=== PATIENT | male | born 1945 | race Caucasian/White ===

== ENCOUNTER → 2019-08-18 | Outpatient (CLI) | payer MEDICARE ==
--- NOTE | 2019-08-18 17:02 | CT ---
EXAMINATION TYPE: CT chest w con DATE OF EXAM: 08/18/2019 COMPARISON: Chest x-ray 10/23/2014 HISTORY: cough CT DLP: 789 mGycm, Automated exposure control for dose reduction was used. CONTRAST: Performed injected with 100 mL of Isovue 300. TECHNIQUE: Axial images were obtained at 5 mm thick sections. Reconstructed images are reviewed on [employer] computer in the coronal plane. FINDINGS: Portion of the thyroid visualized is normal. There is a large pleural-based mass with irregular margins measuring 8.0 x 3.8 cm left lateral upper lung field. There are multiple prominent lymph nodes within the mediastinum. The largest lymph node i s a transverse dimension of 1.6 cm in the pretracheal space. Additional aortopulmonic window lymphade nopathy is present. Left hilar adenopathy is present measuring 1.2 cm. Small left pleural effusion is present. Emphysematous changes are present within the lung gomez. Per ipheral increased lung markings are present compatible with some pulmonary fibrosis. No enlarged mediastinal or hilar adenopathy is evident. The ascending aorta diameter at the level o f the main pulmonary artery is 3.9 cm. The main pulmonary artery diameter at the bifurcation is 2.8 cm. Coronary artery calcification is present. Limited CT sections are obtained through the upper abdomen. Abdomen is essentially unremarkable. IMPRESSIONS: 1. Large peripheral lung mass with multiple enlarged mediastinal lymph nodes suspicious for neoplasm. PET CT is recommended for additional workup. 2. Small left pleural effusion
== END ==
LOC: RADCTMAIN 14:10
PROVIDERS: ATTEND Internal Medicine
DX: J90 Pleural effusion, not elsewhere classified (principal); R91.8 Other nonspecific abnormal finding of lung field; R59.0 Localized enlarged lymph nodes
CPT/HCPCS: 82565; 84520; 71260; 36415; Q9967

== ENCOUNTER → 2019-08-26 | Outpatient (CLI) | payer MEDICARE ==
--- NOTE | 2019-08-28 08:21 | PE ---
Nuclear medicine PET/CT HISTORY: Lung mass, solitary pulmonary nodule, initial Patient received 9.3 mCi F-18 FDG intravenously in delayed scanning was performed from the skull base to the mid thighs. Localization and attenuation correction CT scan was performed. Correlation to CT chest 08/18/2019 Neck and chest: Patient's peripheral left upper lobe mass which is pleural-based spiculated margins i s again noted and measures approximately 8.6 cm in AP dimension, there is associated hypermetabolic u ptake. No evident cervical or supraclavicular adenopathy. There are mediastinal nodes again seen that are enlarged retrocaval pretracheal mediastinum, prevascular space, left hilar location, subcarinal region. Mild uptake present. In the left lower lobe there is a soft tissue nodule in the subpleural l ocation, axial image #130 measuring approximately 17 mm, there is associated hypermetabolic uptake. I nterstitial changes are present within the lungs. There are some dependent atelectatic changes, no si zable effusion, minimal pleural fluid may be present on the left. No pericardial effusion. Coronary a rtery calcifications are present. ABDOMEN: There is no evident adrenal mass. No suspicious hypermetabolic uptake. No liver mass. No asc ites. 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 Osseous structures are remarkable for postop change to the right hip. No suspicious hypermetabolic up take. IMPRESSION: Abnormal uptake as described.
== END | disposition home or self-care (01) ==
LOC: RADPETMAIN 11:32
PROVIDERS: ATTEND Internal Medicine Critical Care Medicine
DX: R91.8 Other nonspecific abnormal finding of lung field (principal)
CPT/HCPCS: 78815; A9552

== ENCOUNTER 2019-08-28 10:17 | Day surgery (SDC) | payer MEDICARE ==
[2019-08-24 10:46] VITALS: BMI 36.3
[~2019-08-28 10:17] MED LIST: ALBUTEROL NEB (CONC) 2.5 MG/0.5 ML INHALATION ONE; ATROPINE SULFATE 0.4 MG/ML 1 ML VIAL IM ONE; DEXAMETHASONE SOD PHOSPHATE 10 MG/ML 1 ML VIAL IV ONE; HYDROmorphone 0.5 MG/0.5 ML SYRINGE IVP PRN; LACTATED RINGERS 1,000 ML IV SCH; LIDOCAINE 1% 20 ML VIAL (10MG/ML) FOR IV START INTRADERMA PRN; LIDOCAINE 2% (PF) 20 MG/ML 5 ML VIAL INHALATION ONE; LIDOCAINE VISCOUS 300 MG/15 ML CUP MUCOUS MEM ONE; ONDANSETRON 4 MG/2 ML VIAL IVP ONE; SODIUM CHLORIDE 0.9% 1,000 ML IV SCH; fentaNYL (PF) 50 MCG/ML 2 ML AMP IV PRN
[2019-08-28] MEDS: fentaNYL (PF) 50 MCG/ML 2 ML AMP IVP ONE ×2 (11:35→11:46)
[2019-08-28] MEDS ORDERED: MIDAZOLAM 2 MG/2 ML VIAL ONE (11:54)
[2019-08-28] MEDS ORDERED: fentaNYL (PF) 50 MCG/ML 2 ML AMP ONE (11:54)
[2019-08-28] MEDS ORDERED: SUCCINYLCHOLINE CHLORIDE 100 MG/5 ML SYR IV ONE (11:54)
[2019-08-28] MEDS ORDERED: PROPOFOL 10 MG/ML 20 ML VIAL IV ONE (11:54)
[2019-08-28] MEDS ORDERED: LIDOCAINE 1% INJ 10MG/ML (20 ML MDV) ONE (11:54)
[2019-08-28] MEDS ORDERED: PHENYLEPHRINE-0.9% NACL SYG 1 MG/10 ML SYRINGE ONE (11:54)
--- NOTE | 2019-08-28 11:54 | CT ---
EXAMINATION TYPE: CT Chest zahida Bains Protocol DATE OF EXAM: 08/28/2019 COMPARISON: 08/18/2019 HISTORY: Pulmonary nodule/mass.bronchial navigation CT DLP: [address] of the chest was performed with lung and mediastinal window settings submitted. The la ck of contrast limits evaluation of the vascular, mediastinal and parenchymal structures including th e upper abdomen. LUNGS: Left upper lobe pleural-based mass is noted to measure 7.1 x 8.1 x 4.3 cm. No additional zac s are identified. Scattered changes of subpleural fibrosis noted. Hyperinflation compatible with COPD . No evidence for pleural effusion. No pneumothorax identified. MEDIASTINUM/KENNEDY: Thoracic aorta is of normal caliber with limited evaluation given lack of contrast . The heart is not enlarged. AP window adenopathy measuring 1.0 cm. Low right paratracheal adenopath y measuring 1.2 cm. UPPER ABDOMEN: No significant abnormality is seen. OTHER: No significant other abnormality. IMPRESSION: 1. Pleural-based left upper lobe mass.
[2019-08-28] MEDS ORDERED: LACTATED RINGERS 1,000 ML IV ONE (13:05)
[2019-08-28 13:53] VITALS: TEMP 97
--- NOTE | 2019-08-28 14:03 | XR ---
EXAMINATION TYPE: XR chest 1V portable DATE OF EXAM: 08/28/2019 COMPARISON: Prior chest x-ray 10/23/[address] 08/28/2019 HISTORY: Status post biopsy left upper lobe TECHNIQUE: Single frontal view of the chest is obtained. FINDINGS: There is no pneumothorax. Left upper lobe pleural-based lung mass is again seen. No eviden t pleural effusion. Heart size is within normal limits. IMPRESSION: No evident complication status post left upper lobe lung biopsy.
[2019-08-28 14:09] VITALS: RESP 16
[2019-08-28 14:31] VITALS: PULSE 64
[2019-08-28 14:41] VITALS: BP 116/72
[2019-08-28 20:32] LABS: Appearance,BF Cloudy; Color,BF Pink; Nucleated Cells, Body Fluid 30 /uL; RBC, Body Fluid 595 /uL
[2019-08-28 20:33] LABS: Mononuclear WBC,Body Fluid 95 %; Polynuclear WBC,Body Fluid 5 %; Total Cells Counted,Body Fluid 100
--- NOTE | 2019-08-28 22:25 | PCN ---
PROCEDURE NOTE PROCEDURE: Navigational bronchoscopy. PREOPERATIVE DIAGNOSIS: Left upper lobe mass; rule out cancer. POSTOPERATIVE DIAGNOSIS: Left upper lobe mass; rule out cancer. OPERATORS: 1. Dr. Solorio. 2. Dr. Nuno. PROCEDURE DESCRIPTION: The patient's procedure was done in the operating room #7. There was informed consent and universal timeout. After the patient was adequately sedated, and under general anesthesia, the [employer] electromagnetic navigational device was used to localize the lesion in the left upper lobe. The bronchoscope was inserted through the bronchoscope adapter connected to the endotracheal tube. We were able to locate the lesion. We did multiple needle biopsies of the left upper lobe. In addition, we did transbronchial biopsies in the left upper lobe. Also, brushes and washes were done in the left upper lobe. The patient tolerated the procedure well. Pathology was in the room. They could not definitively give us a diagnosis. There were some atypical cells noted. The specimens will all be sent to the laboratory for further analysis. The patient will be recovered. I will speak to the patient's . There was no immediate complication. MMODL / IJN: [id number] / MTDD
== END 2019-08-28 15:00 | disposition home or self-care (01) ==
LOC: ORWHC2ENDO 10:17
PROVIDERS: ATTEND Internal Medicine Critical Care Medicine
DX: J42 Unspecified chronic bronchitis (principal); J20.9 Acute bronchitis, unspecified; I48.91 Unspecified atrial fibrillation; G47.33 Obstructive sleep apnea (adult) (pediatric); Z99.89 Dependence on other enabling machines and devices; Z79.01 Long term (current) use of anticoagulants; Z79.899 Other long term (current) drug therapy
CPT/HCPCS: 87798 ×3; 87496; 87498; 87529; 88104; 88108; 88305; 88173; 89050; 87252; 87502; 87634; 87070; 87205; 87116; 87102; 87206; 71045; 71250; 31629; 31623; 31624; 31627; 31628; J2250; J1100; J2405; J2001; J3010; J2370; J0330; J2704

== ENCOUNTER → 2019-11-02 | Day surgery (SDC) | payer MEDICARE ==
[2019-11-01 10:06] VITALS: BMI 38.0
[~2019-11-02] MED LIST changes: -ALBUTEROL NEB (CONC) 2.5 MG/0.5 ML INHALATION ONE; -ATROPINE SULFATE 0.4 MG/ML 1 ML VIAL IM ONE; +HEPARIN SODIUM,PORCINE 100 UNIT/ML 5 ML VIAL IV ONE; +HEPARIN SODIUM,PORCINE 5,000 UNIT/ML 1 ML VIAL SQ ONE; +HYDROcodone/APAP 5-325MG 1 EACH TAB PO PRN; +KETAMINE 10 MG/ML 20 ML VIAL ONE; +LIDOCAINE 1% INJ 10MG/ML (20 ML MDV) SQ ONE; -LIDOCAINE 2% (PF) 20 MG/ML 5 ML VIAL INHALATION ONE; -LIDOCAINE VISCOUS 300 MG/15 ML CUP MUCOUS MEM ONE; +MIDAZOLAM 2 MG/2 ML VIAL ONE; +NALOXONE 0.4 MG/ML 1 ML VIAL IV PRN; +PROPOFOL 10 MG/ML 20 ML VIAL IV ONE; -SODIUM CHLORIDE 0.9% 1,000 ML IV SCH; +ceFAZolin 3 GM in SODIUM CHLORIDE 0.9% 100 ML IVPB ONE; -fentaNYL (PF) 50 MCG/ML 2 ML AMP IV PRN; +fentaNYL (PF) 50 MCG/ML 2 ML AMP ONE
[2019-11-02 12:21] VITALS: RESP 16; TEMP 97.2
--- NOTE | 2019-11-02 12:23 | P.GSHP ---
History of Present Illness H&P Date: 11/02/19 Chief Complaint: Left lung cancer 74-year-old male with recently diagnosed with left lung mass and malignancy. Here today for Port-A-Cath placement. To initiate chemotherapy in the near future. No history of previous port. Past Medical History Past Medical History: Atrial Flutter, Osteoarthritis (OA), Pneumonia, Sleep Apnea/CPAP/BIPAP Additional Past Medical History / Comment(s): HX PERICARDITIS 1988, pneumonia 2013, Uses CPAP, LOWER BACK PAIN, NEW DIAGNOSIS LUNG CANCER-STATES HE RECEIVED A DOSE OF CHEMO AT [facility] STATES SOME SOB. History of Any Multi-Drug Resistant Organisms: None Reported Past Surgical History: Adenoidectomy, Cardiac Ablation, Joint Replacement, Orthopedic Surgery, Tonsillectomy Additional Past Surgical History / Comment(s): 01/17/15 Atrial flutter ablation. , KNEE ARTHROSCOPIES, NANCY Total KNEE REPLACE., NASAL SURG for fx repair, Colonoscopy w/ polypectomy-benign. Total Rt Hip. RIGHT CATARACT 10/31/19. Past Anesthesia/Blood Transfusion Reactions: No Reported Reaction Past Psychological History: No Psychological Hx Reported Additional Psychological History / Comment(s): . Smoking Status: Former smoker Past Alcohol Use History: Occasional Additional Past Alcohol Use History / Comment(s): Smoked cigarettes age 21 - 1988, SMOKED OCCASIONAL CIGARS & QUIT AUG 2019. DRINKS 1 TO 1 & 1/2 DRINKS PER DAY Past Drug Use History: None Reported - Past Family History Father Family Medical History: Cancer Additional Family Medical History / Comment(s): LUNG CANCER AND LIVER CANCER Medications and Allergies Home Medications Medication Instructions Recorded Confirmed Type Rivaroxaban [Xarelto] 20 mg PO HS 08/24/19 11/01/19 History Allopurinol [Zyloprim] 300 mg PO DAILY 11/01/19 11/01/19 History Pantoprazole [Protonix] 40 mg PO DAILY 11/01/19 11/01/19 History Allergies Allergy/AdvReac Type Severity Reaction Status Date / Time No Known Allergies Allergy Verified 11/02/19 12:09 Surgical - Exam Vital Signs Temp Pulse Resp BP Pulse Ox 97.2 F L 83 16 131/87 95 11/02/19 12:14 11/02/19 12:14 11/02/19 12:14 11/02/19 12:14 02/27/20 12:14 Physical exam: General: Well-developed, well-nourished HEENT: Normocephalic, sclerae nonicteric Abdomen: Nontender, nondistended Extremities: No edema Neuro: Alert and oriented Assessment and Plan (1) Mass of upper lobe of left lung Narrative/Plan: Will proceed with Port-A-Cath placement at this time. Risks of bleeding, infection, DVT, pneumothorax, catheter malfunction, anesthesia related complications were discussed. The patient understands and wishes to proceed. Current Visit: No Status: Acute Code(s): R91.8 - OTHER NONSPECIFIC ABNORMAL FINDING OF LUNG FIELD SNOMED Code(s): 579368075
[2019-11-02 13:46] VITALS: BP 133/89; PULSE 62
--- NOTE | 2019-11-02 13:48 | P.OP ---
Date of Procedure: 11/02/19 Procedure(s) Performed: PREOPERATIVE DIAGNOSIS: Left lung cancer POSTOPERATIVE DIAGNOSIS: Same PROCEDURE: Port-A-Cath placement SURGEON: Marilee EBL: Minimal ANESTHESIA: Sedation COMPLICATIONS: None OPERATIVE PROCEDURE: Patient was brought and placed on the operative table in the supine position. The patient was sedated per anesthesia that time. The chest and neck were prepped and draped in usual sterile fashion. The ultrasound probe was used to identify the location of the right internal jugular vein. The skin was localized with lidocaine. The Seldinger needle was advanced into the IJ under ultrasound guidance. The wire was advanced through the needle under fluoroscopic guidance into the superior vena cava. A port pocket was created in the right infraclavicular location. The catheter was tunneled from the wire entrance site to the port pocket. The port was then connected to the catheter. The dilator introducer was threaded over the guidewire. The guidewire and dilator were then removed. The catheter was advanced through the introducer and introducer was then removed. The tip was seen to be in the right atrial junction. Port was flushed with both saline and a Hep-Lock solution. There was good flow both in and out of the port. The port was sutured in underlying tissues using 3-0 silk sutures. The subcutaneous tissues were reapproximated using 3-0 Vicryl sutures and the skin at both locations using 4-0 Monocryl sutures. Skin glue and sterile dressings then applied. DISPOSITION: Stable to recovery room
--- NOTE | 2019-11-02 14:02 | FL ---
Fluoroscopy HISTORY: Central venous catheter placement 9 seconds fluoroscopy time supplied to the referring clinician. 1 intraoperative C-arm images docume nt the procedure. See dictated report from general surgery.
--- NOTE | 2019-11-02 14:08 | XR ---
EXAMINATION TYPE: XR chest 1V confirm line [facility] DATE OF EXAM: 11/02/2019 COMPARISON: Chest x-ray 08/28/2019 HISTORY: Status post Port-A-Cath placement TECHNIQUE: Single frontal view of the chest is obtained. FINDINGS: Patient is rotated toward the left. There is been interval placement of a right-sided Port- A-Cath via right internal jugular vein approach, distal tip is overlying superior vena cava. No evide nt pneumothorax or pleural effusion. No significant change, abnormal density persists in the superola teral left hemithorax. IMPRESSION: No evident complication status post central catheter placement.
== END ==
LOC: OR 11:52
PROVIDERS: ATTEND Surgery
DX: C85.90 Non-Hodgkin lymphoma, unspecified, unspecified site (principal); R91.8 Other nonspecific abnormal finding of lung field; I48.91 Unspecified atrial fibrillation; I48.92 Unspecified atrial flutter; M19.90 Unspecified osteoarthritis, unspecified site; G47.33 Obstructive sleep apnea (adult) (pediatric); E66.9 Obesity, unspecified; Z68.38 Body mass index [BMI] 38.0-38.9, adult; Z98.890 Other specified postprocedural states; Z79.899 Other long term (current) drug therapy; Z79.01 Long term (current) use of anticoagulants; Z87.891 Personal history of nicotine dependence; Z87.01 Personal history of pneumonia (recurrent); K21.9 Gastro-esophageal reflux disease without esophagitis; Z99.89 Dependence on other enabling machines and devices; Z86.79 Personal history of other diseases of the circulatory system; Z90.89 Acquired absence of other organs; Z96.653 Presence of artificial knee joint, bilateral; Z96.641 Presence of right artificial hip joint; Z86.010 Personal history of colon polyps; Z98.41 Cataract extraction status, right eye; Z83.3 Family history of diabetes mellitus; Z82.5 Family history of asthma and other chronic lower respiratory diseases; Z80.1 Family history of malignant neoplasm of trachea, bronchus and lung; Z80.0 Family history of malignant neoplasm of digestive organs
CPT/HCPCS: 93005; 77001; 36561; C1788; J2250; J1644; J1642; J1100; J0690; J2405; J2001; J3010; J2704

== ENCOUNTER → 2019-12-08 | Outpatient (CLI) | payer MEDICARE ==
--- NOTE | 2019-12-11 08:34 | PE ---
EXAMINATION TYPE: PET CT fusion skull to thigh DATE OF EXAM: 12/08/2019 COMPARISON: CT chest 08/28/2019 Prior PET/CT: 08/26/2019 HISTORY: Lymphoma TECHNIQUE: Following the intravenous administration of 12.97 mCi of F-18 FDG, whole body images are performed from the skull base to the midthigh. Images are reviewed on the computer in the coronal, a xial, and sagittal planes. Reconstructed rotating images are created on independent workstation and reviewed on the computer. A localization and attenuation correction CT is performed in conjunction with the PET scan. DLP: 646.63 mGycm SCAN: Subsequent, follow-up Blood glucose: 172 mg/dL Average Mediastinum SUV: 1.70 Average Liver SUV: 2.32 FINDINGS: NECK: No suspicious soft tissue uptake within the neck is evident THORAX: There is a peripheral density with some consolidative appearance. Mild increased signal is pr esent within this area. This is significantly smaller than the prior study and significantly diminish ed radiotracer accumulation. Current SUV value of 2.86. Mediastinal adenopathy is present. This has an SUV value of 1.49. This may be reactive. Previous left posterior lateral lung nodule is not clearly hyperintense on the current exam the curre nt SUV value 1.2. ABDOMEN: No suspicious uptake PELVIS: No suspicious uptake OSSEOUS STRUCTURES: There is some mild uptake within the region of the left temporomandibular junctio n may be degenerative related. Osseous metastasis could be considered. Intense uptake is within the C 3 vertebral body suspicious for metastatic disease. Additional foci of increased radiotracer accumula tion are within additional cervical vertebral bodies extends through the thoracic and lumbar levels. There is increased uptake within the sternum. There is increased uptake at the right sternal clavicul ar junction. There is some patchy increased signal within the marrow proximal bilateral humeri diaphy sis. Additional scattered areas of uptake are within the pelvis and proximal femurs. Metastatic disea se should be considered. Reactive marrow treatment could be considered LOCALIZATION CT: The consolidation along the peripheral margin of the left upper lobe currently measu res 8.3 x 2.3 cm COMPARISON: Consolidation in the left peripheral upper lobe is diminished in size. Previous posterior lateral left lower lobe nodule is resolving. There are some scattered increased lung markings presen t bilaterally. 1.1 cm pretracheal lymph node is present. A 1.1 cm lymph node is adjacent to the left main pulmonary artery. Series 3 image 102. Coronary artery calcification is noted. IMPRESSION: 1. Significant improvement of the consolidation type appearance of the left upper lobe mass. There is significant diminished radiotracer over the interval with residual remaining. 2. Interval development of patchy radiotracer uptake within the spinal vertebral bodies and within th e proximal diaphyseal humeri and visualized femurs among other osseous structures. Diffuse metastatic disease and reactive posttreatment changes could be considered.
== END | disposition home or self-care (01) ==
LOC: RADPETMAIN 07:24
PROVIDERS: ATTEND Internal Medicine Hematology & Oncology
DX: C83.39 Diffuse large B-cell lymphoma, extranodal and solid organ sites (principal)
CPT/HCPCS: 78815; A9552

== ENCOUNTER → 2019-12-20 | Day surgery (SDC) | payer MEDICARE ==
[~2019-12-20] MED LIST changes: -DEXAMETHASONE SOD PHOSPHATE 10 MG/ML 1 ML VIAL IV ONE; -HEPARIN SODIUM,PORCINE 100 UNIT/ML 5 ML VIAL IV ONE; -HEPARIN SODIUM,PORCINE 5,000 UNIT/ML 1 ML VIAL SQ ONE; -HYDROcodone/APAP 5-325MG 1 EACH TAB PO PRN; -HYDROmorphone 0.5 MG/0.5 ML SYRINGE IVP PRN; -KETAMINE 10 MG/ML 20 ML VIAL ONE; -LACTATED RINGERS 1,000 ML IV SCH; -LIDOCAINE 1% 20 ML VIAL (10MG/ML) FOR IV START INTRADERMA PRN; -LIDOCAINE 1% INJ 10MG/ML (20 ML MDV) SQ ONE; +METHOTREXATE SODIUM (PF) 25 MG/ML 2 ML VIAL INTRATHECA ONE; -MIDAZOLAM 2 MG/2 ML VIAL ONE; -NALOXONE 0.4 MG/ML 1 ML VIAL IV PRN; -ONDANSETRON 4 MG/2 ML VIAL IVP ONE; -PROPOFOL 10 MG/ML 20 ML VIAL IV ONE; -ceFAZolin 3 GM in SODIUM CHLORIDE 0.9% 100 ML IVPB ONE; -fentaNYL (PF) 50 MCG/ML 2 ML AMP ONE
[2019-12-20 08:23] VITALS: TEMP 98.3
[2019-12-20 09:26] VITALS: RESP 18
--- NOTE | 2019-12-20 11:02 | FL ---
EXAMINATION TYPE: FL guided lumbar puncture LP DATE OF EXAM: 12/20/2019 HISTORY: Extranodal diffuse large B-cell lymphoma, correlation to MRI from outside institution dated 01/06/2016 Maximal barrier technique was utilized. The skin overlying the L3 transverse process was localized u nder fluoroscopy and the overlying skin prepped and draped. Lidocaine used for local anesthesia. 20 -gauge needle was advanced into the thecal sac under fluoroscopic guidance and cerebrospinal fluid wa s noted to return in the hub of the needle. Only approximately 3.5 cc of cerebrospinal fluid obtained likely due to patient's spinal stenosis. A spot image verified needle placement. Referring clinician then performed intrathecal chemotherapy through the needle. The patient remained in stable condition, the needle was removed. Hemostasis achieved. No immediate complication. 6.23 minutes fluoroscopy time, single image obtained IMPRESSION: Lumbar puncture, cerebrospinal fluid harvest, intrathecal chemotherapy administration as described
[2019-12-20 12:18] VITALS: BP 118/64; PULSE 75
--- NOTE | 2019-12-20 12:49 | P.PCN ---
Date of Procedure: 12/20/19 Preoperative Diagnosis: DLBCL Postoperative Diagnosis: DLBCL Procedure(s) Performed: LP with IT chemotherapy administration Anesthesia: local Estimated Blood Loss (ml): 0 Pathology: other Condition: stable Disposition: same day Indications for Procedure: prophylactic IT chemo, high grade DLBCL Description of Procedure: Interventional Radiology performed LP. All measures and medications verified with Oncology certified NICK Reyes who assisted with procedure. 3 cc of cerebrospinal fluid was removed. 12 mg ,Sterile, preservative-free methotrexate diluted to 5 mg/mL (total of 2.5 cc) was administered slowly over 4 minutes. LP needle was flushed with 0.5 cc of sterile, preservative-free normal saline in a latex free syringe. Patient tolerated procedure well. Fluid sent for cytology and flow cytometry.
== END ==
LOC: RADPROMAIN 07:57
PROVIDERS: ATTEND Internal Medicine Hematology & Oncology
DX: C83.30 Diffuse large B-cell lymphoma, unspecified site (principal); Z79.01 Long term (current) use of anticoagulants
CPT/HCPCS: 62328; 88108

== ENCOUNTER 2020-01-08 20:49 | Inpatient (IN) | payer MEDICARE ==
[2020-01-08] MEDS ORDERED: ACETAMINOPHEN TAB 500 MG TAB PO STA (21:17)
[2020-01-08] MEDS ORDERED: SODIUM CHLORIDE 0.9% 2,400 ML IV ONE (21:46)
[2020-01-08 22:00] LABS: Basophils # (A) 0.1 k/uL (0-0.2); Basophils % (A) 1 %; Eosinophils % (A) 0 %; HCT 30.6 % (39.0-53.0); HGB 9.8 gm/dL (13.0-17.5); Lymphocytes # (A) 0.9 k/uL (1.0-4.8); Lymphocytes % (A) 13 %; MCH 33.7 pg (25.0-35.0); MCHC 32.2 g/dL (31.0-37.0); MCV 104.5 fL (80.0-100.0); Macrocytosis Moderate; Mean Platelet Volume 7.7; Monocytes # (A) 0.5 k/uL (0-1.0); Monocytes % (A) 7 %; Neutrophils # (A) 4.9 k/uL (1.3-7.7); Neutrophils % (A) 74 %; Platelet Count 369 k/uL (150-450); RBC 2.92 m/uL (4.30-5.90); RDW 15.4 % (11.5-15.5); WBC 6.6 k/uL (3.8-10.6)
--- NOTE | 2020-01-08 22:05 | XR ---
EXAMINATION TYPE: XR chest 1V portable DATE OF EXAM: 01/08/2020 COMPARISON: Chest CT August 18, 2019. PET/CT December 08, 2019. Most recent x-ray September 01, 2020. HISTORY: History of lymphoma with cough and shortness of breath on exertion. TECHNIQUE: Single AP portable frontal upright view of the chest is obtained. FINDINGS: There is stable right internal jugular Mediport catheter. Background chronic peripheral re ticular fibrotic changes bilaterally along with peripheral left upper lobe mass corresponding to know n lymphoma. No new suspicious focal airspace opacity, pleural effusion, or pneumothorax seen bilatera lly. Persistent cardiomegaly. Osseous structures are intact. IMPRESSION: Cardiomegaly and Chronic changes without new suspicious acute pulmonary process.
[2020-01-08 22:13] LABS: Albumin 3.7 g/dL (3.5-5.0); Calcium 8.8 mg/dL (8.4-10.2); Potassium 4.4 mmol/L (3.5-5.1); Prothrombin Time 10.7 sec (9.0-12.0); Total Bilirubin 0.5 mg/dL (0.2-1.3); Total Protein 6.5 g/dL (6.3-8.2)
[2020-01-08] MEDS ORDERED: CEFEPIME 2 GM in SODIUM CHLORIDE 0.9% 100 ML IVPB STA (22:40)
--- NOTE | 2020-01-08 23:09 | ED ---
Fever HPI - General Chief Complaint: Fever Stated Complaint: Fever Time Seen by Provider: 01/08/20 20:55 Source: patient Mode of arrival: ambulatory Limitations: no limitations - History of Present Illness Initial Comments: The patient is a 74-year-old male with past nuchal history of A. fib on Xarelto, B-cell lymphoma on current chemotherapy who presents to the emergency room was reported fevers. The patient states that he started feeling ill on Wednesday. Patient felt generally weak. Today the patient took his temp been noted that he had a fever. Because he is currently on chemotherapy for B-cell lymphoma he knows that this is important to come to the emergency room when he is febrile. He last had chemo 3 weeks ago. He is scheduled to have a bone marrow biopsy on Wednesday and have chemo this . He sees Dr. Olivo. The patient denies any source of infection. He denies hemoptysis. No headaches or visual changes. No neck pain or stiffness. Denies abdominal pain, nausea or vomiting. Denies diarrhea, constipation, melenic stools or hematochezia. Denies dysuria, hematuria or typically voiding. The patient does admit to a chronic cough which has been present since his diagnosis of his lymphoma. He also admits to exerti onal shortness of breath. No history of DVT or PE. Currently is on anticoagulation and denies missing any doses. Denies any rashes or open wounds. There are no other alleviating, precipitating or modifying factors - Related Data Home Medications Medication Instructions Recorded Confirmed Rivaroxaban [Xarelto] 20 mg PO AC-SUPPER 08/24/19 01/08/20 Allopurinol [Zyloprim] 300 mg PO DAILY 11/01/19 01/08/20 Pantoprazole [Protonix] 40 mg PO HS 11/01/19 01/08/20 Ondansetron [Zofran] 4 mg PO Q8HR PRN 11/20/19 01/08/20 predniSONE 100 mg PO DIRECTED 11/20/19 01/08/20 Previous Rx's Medication Instructions Recorded Hydroxychloroquine Sulfate 200 mg PO BID #4 tablet 01/12/20 [Plaquenil] methylPREDNISolone Dose Pack 4 mg PO DIRECTED #21 package 01/12/20 [Medrol Dose Pack] Allergies Allergy/AdvReac Type Severity Reaction Status Date / Time No Known Allergies Allergy Verified 01/08/20 23:19 Review of Systems ROS Statement: Those systems with pertinent positive or pertinent negative responses have been documented in the HPI. ROS Other: All systems not noted in ROS Statement are negative. Past Medical History Past Medical History: Atrial Flutter, Cancer, Osteoarthritis (OA), Pneumonia, Sleep Apnea/CPAP/BIPAP Additional Past Medical History / Comment(s): HX PERICARDITIS 1988, pneumonia 2013, Uses CPAP, LOWER BACK PAIN, NEW DIAGNOSIS LUNG CANCER-STATES HE RECEIVED A DOSE OF CHEMO AT [facility] STATES SOME SOB. Lympohoma History of Any Multi-Drug Resistant Organisms: None Reported Past Surgical History: Adenoidectomy, Cardiac Ablation, Joint Replacement, Orthopedic Surgery, Tonsillectomy Additional Past Surgical History / Comment(s): 01/17/15 Atrial flutter ablation. , KNEE ARTHROSCOPIES, NANCY Total KNEE REPLACE., NASAL SURG for fx repair, Colonoscopy w/ polypectomy-benign. Total Rt Hip. RIGHT CATARACT 10/31/19. Past Anesthesia/Blood Transfusion Reactions: No Reported Reaction Past Psychological History: No Psychological Hx Reported Smoking Status: Former smoker Past Alcohol Use History: Occasional Past Drug Use History: None Reported - Past Family History Father Family Medical History: Cancer Additional Family Medical History / Comment(s): LUNG CANCER AND LIVER CANCER General Exam Limitations: no limitations General appearance: alert, in no apparent distress Head exam: Present: atraumatic, normocephalic, normal inspection Eye exam: Present: normal appearance, PERRL, EOMI. Absent: scleral icterus, co njunctival injection, periorbital swelling ENT exam: Present: normal exam, mucous membranes moist Neck exam: Present: normal inspection. Absent: tenderness, meningismus, lymphadenopathy Respiratory exam: Present: normal lung sounds bilaterally. Absent: respiratory distress, wheezes, rales, rhonchi, stridor Cardiovascular Exam: Present: regular rate, normal rhythm, normal heart sounds. Absent: systolic murmur, diastolic murmur, rubs, gallop, clicks GI/Abdominal exam: Present: soft, normal bowel sounds. Absent: distended, tenderness, guarding, rebound, rigid Extremities exam: Present: normal inspection, full ROM, normal capillary refill. Absent: tenderness, pedal edema, joint swelling, calf tenderness Back exam: Present: normal inspection Neurological exam: Present: alert, oriented X3, CN II-XII intact Psychiatric exam: Present: normal affect, normal mood Skin exam: Present: warm, dry, intact, normal color. Absent: rash Course Vital Signs 01/08/20 01/08/20 01/08/20 20:54 23:00 23:35 Temperature 102.5 F H 100.1 F H 98.1 F Pulse Rate 92 69 Pulse Rate [ 92 Pulse Oximetery ] Respiratory 18 18 17 Rate Blood Pressure 128/76 123/77 Blood Pressure 131/76 [Left Arm] O2 Sat by Pulse 94 L 94 L 95 Oximetry 01/09/20 00:17 Temperature 100.0 F H Pulse Rate 84 Pulse Rate [ Pulse Oximetery ] Respiratory 18 Rate Blood Pressure 117/76 Blood Pressure [Left Arm] O2 Sat by Pulse 95 Oximetry Medical Decision Making - Medical Decision Making Upon arrival the patient is placed into room 15. A thorough history and physical exam was performed. Peripheral IV was established. Laboratories his were conducted. Blood cultures were obtained. Laboratory studies demonstrated an anemia of 9.8. White blood count is 6.6. Troponin is mildly elevated at 0.075. C-reactive protein 47.6. The [employer] 570. Urinalysis shows moderate mucus. Coronavirus not detected. Chest x-ray demonstrates cardio medically and chronic changes without new suspicious acute pulmonary process. I discussed the results with the patient. He does have an elevated troponin and therefore I did continue his Xarelto. He is not currently having any chest pain. 2 EKGs were performed to demonstrate A. fib with a controlled rate. No acute ST segment elevation or depression. She was given 2 g of cefepime. I discussed the case with Dr. Cameron agreed to admit the patient. I will place cardiology, infectious disease and Dr. Olivo on consult. The patient remained in stable condition was transported to the floor. - Lab Data Result diagrams: 01/12/20 06:53 01/12/20 06:53 Lab Results 01/08/20 01/08/20 01/08/20 Range/Units 21:05 21:38 21:38 WBC 6.6 (3.8-10.6) k/uL RBC 2.92 L (4.30-5.90) m/uL Hgb 9.8 L (13.0-17.5) gm/dL Hct 30.6 L (39.0-53.0) % MCV 104.5 H (80.0-100.0) fL MCH 33.7 (25.0-35.0) pg MCHC 32.2 (31.0-37.0) g/dL RDW 15.4 (11.5-15.5) % Plt Count 369 (150-450) k/uL Neutrophils % 74 % Lymphocytes % 13 % Monocytes % 7 % Eosinophils % 0 % Basophils % 1 % Neutrophils # 4.9 (1.3-7.7) k/uL Lymphocytes # 0.9 L (1.0-4.8) k/uL Monocytes # 0.5 (0-1.0) k/uL Eosinophils # 0.0 (0-0.7) k/uL Basophils # 0.1 (0-0.2) k/uL Macrocytosis Moderate PT 10.7 (9.0-12.0) sec INR 1.0 (<1.2) APTT 22.0 (22.0-30.0) sec Sodium (137-145) mmol/L Potassium (3.5-5.1) mmol/L Chloride (98-107) mmol/L Carbon Dioxide (22-30) mmol/L Anion Gap mmol/L BUN (9-20) mg/dL Creatinine (0.66-1.25) mg/dL Est GFR (CKD-EPI)AfAm (>60 ml/min/1.73 sqM) Est GFR (CKD-EPI)NonAf (>60 ml/min/1.73 sqM) Glucose (74-99) mg/dL Plasma Lactic Acid Clarke (0.7-2.0) mmol/L Calcium (8.4-10.2) mg/dL Total Bilirubin (0.2-1.3) mg/dL AST (17-59) U/L ALT (4-49) U/L Alkaline Phosphatase (38-126) U/L Troponin I (0.000-0.034) ng/mL C-Reactive Protein (<10.0) mg/L NT-Pro-B Natriuret Pep pg/mL Total Protein (6.3-8.2) g/dL Albumin (3.5-5.0) g/dL Urine Color Urine Appearance (Clear) Urine pH (5.0-8.0) Ur Specific [place] (1.001-1.035) Urine Protein (Negative) Urine Glucose (UA) (Negative) Urine Ketones (Negative) Urine Blood (Negative) Urine Nitrite (Negative) Urine Bilirubin (Negative) Urine Urobilinogen (<2.0) mg/dL Ur Leukocyte Esterase (Negative) Urine RBC (0-5) /hpf Urine WBC (0-5) /hpf Ur Squamous Epith Cells (0-4) /hpf Urine Mucus (None) /hpf Coronavirus (PCR) Not Detected (Not Detectd) 01/08/20 01/08/20 01/08/20 Range/Units 21:38 21:38 21:38 WBC (3.8-10.6) k/uL RBC (4.30-5.90) m/uL Hgb (13.0-17.5) gm/dL Hct (39.0-53.0) % MCV (80.0-100.0) fL MCH (25.0-35.0) pg MCHC (31.0-37.0) g/dL RDW (11.5-15.5) % Plt Count (150-450) k/uL Neutrophils % % Lymphocytes % % Monocytes % % Eosinophils % % Basophils % % Neutrophils # (1.3-7.7) k/uL Lymphocytes # (1.0-4.8) k/uL Monocytes # (0-1.0) k/uL Eosinophils # (0-0.7) k/uL Basophils # (0-0.2) k/uL Macrocytosis PT (9.0-12.0) sec INR (<1.2) APTT (22.0-30.0) sec Sodium 134 L (137-145) mmol/L Potassium 4.4 (3.5-5.1) mmol/L Chloride 101 (98-107) mmol/L Carbon Dioxide 25 (22-30) mmol/L Anion Gap 8 mmol/L BUN 15 (9-20) mg/dL Creatinine 0.98 (0.66-1.25) mg/dL Est GFR (CKD-EPI)AfAm 90 (>60 ml/min/1.73 sqM) Est GFR (CKD-EPI)NonAf 77 (>60 ml/min/1.73 sqM) Glucose 156 H (74-99) mg/dL Plasma Lactic Acid Clarke 1.3 (0.7-2.0) mmol/L Calcium 8.8 (8.4-10.2) mg/dL Total Bilirubin 0.5 (0.2-1.3) mg/dL AST 22 (17-59) U/L ALT 14 (4-49) U/L Alkaline Phosphatase 91 (38-126) U/L Troponin I (0.000-0.034) ng/mL C-Reactive Protein (<10.0) mg/L NT-Pro-B Natriuret Pep pg/mL Total Protein 6.5 (6.3-8.2) g/dL Albumin 3.7 (3.5-5.0) g/dL Urine Color Yellow Urine Appearance Clear (Clear) Urine pH 5.5 (5.0-8.0) Ur Specific [place] 1.027 (1.001-1.035) Urine Protein 1+ H (Negative) Urine Glucose (UA) Negative (Negative) Urine Ketones Negative (Negative) Urine Blood Negative (Negative) Urine Nitrite Negative (Negative) Urine Bilirubin Negative (Negative) Urine Urobilinogen 2.0 (<2.0) mg/dL Ur Leukocyte Esterase Negative (Negative) Urine RBC 1 (0-5) /hpf Urine WBC <1 (0-5) /hpf Ur Squamous Epith Cells <1 (0-4) /hpf Urine Mucus Moderate H (None) /hpf Coronavirus (PCR) (Not Detectd) 01/08/20 01/08/20 01/08/20 Range/Units 21:38 21:38 21:38 WBC (3.8-10.6) k/uL RBC (4.30-5.90) m/uL Hgb (13.0-17.5) gm/dL Hct (39.0-53.0) % MCV (80.0-100.0) fL MCH (25.0-35.0) pg MCHC (31.0-37.0) g/dL RDW (11.5-15.5) % Plt Count (150-450) k/uL Neutrophils % % Lymphocytes % % Monocytes % % Eosinophils % % Basophils % % Neutrophils # (1.3-7.7) k/uL Lymphocytes # (1.0-4.8) k/uL Monocytes # (0-1.0) k/uL Eosinophils # (0-0.7) k/uL Basophils # (0-0.2) k/uL Macrocytosis PT (9.0-12.0) sec INR (<1.2) APTT (22.0-30.0) sec Sodium (137-145) mmol/L Potassium (3.5-5.1) mmol/L Chloride (98-107) mmol/L Carbon Dioxide (22-30) mmol/L Anion Gap mmol/L BUN (9-20) mg/dL Creatinine (0.66-1.25) mg/dL Est GFR (CKD-EPI)AfAm (>60 ml/min/1.73 sqM) Est GFR (CKD-EPI)NonAf (>60 ml/min/1.73 sqM) Glucose (74-99) mg/dL Plasma Lactic Acid Clarke (0.7-2.0) mmol/L Calcium (8.4-10.2) mg/dL Total Bilirubin (0.2-1.3) mg/dL AST (17-59) U/L ALT (4-49) U/L Alkaline Phosphatase (38-126) U/L Troponin I 0.075 H* (0.000-0.034) ng/mL C-Reactive Protein 47.6 H (<10.0) mg/L NT-Pro-B Natriuret Pep 570 pg/mL Total Protein (6.3-8.2) g/dL Albumin (3.5-5.0) g/dL Urine Color Urine Appearance (Clear) Urine pH (5.0-8.0) Ur Specific [place] (1.001-1.035) Urine Protein (Negative) Urine Glucose (UA) (Negative) Urine Ketones (Negative) Urine Blood (Negative) Urine Nitrite (Negative) Urine Bilirubin (Negative) Urine Urobilinogen (<2.0) mg/dL Ur Leukocyte Esterase (Negative) Urine RBC (0-5) /hpf Urine WBC (0-5) /hpf Ur Squamous Epith Cells (0-4) /hpf Urine Mucus (None) /hpf Coronavirus (PCR) (Not Detectd) - EKG Data EKG Comments: EKG at 2149 demonstrates A. fib with a rate of 100. QRS E4. QTC of 459. Q- wave in lead 3. No acute ST segment elevations or depressions. Repeat EKG at 02:08 demonstrates A. fib with a rate of 95. QRS 86. QTC of 492. Mild ST depression in V5 through V6. No acute ST segment elevations. Disposition Clinical Impression: Febrile, Lymphoma, Anemia associated with chemotherapy Disposition: ADMITTED IP TO THIS HOSP Condition: Fair Is patient prescribed a controlled substance at d/c from ED?: No Decision to Admit Reason: Admit from EC Decision Date: 01/08/20 Decision Time: 23:13
[2020-01-08 23:13] LABS: Appearance,Urine Clear (Clear); Bilirubin,Urine Negative (Negative); Blood,Urine Negative (Negative); Color,Urine Yellow; Glucose,Urine (UA) Negative (Negative); Ketones,Urine Negative (Negative); Leukocyte Esterase,Urine Negative (Negative); Mucus,Urine Moderate /hpf; Nitrite,Urine Negative (Negative); PH, Urine 5.5 (5.0-8.0); Protein,Urine 1+ (Negative); RBC,Urine 1 /hpf (0-5); Specific Gravity,Urine 1.027 (1.001-1.035); Squamous Epithelial Cell,Urine <1 /hpf (0-4); WBC,Urine <1 /hpf (0-5)
[2020-01-08] MEDS ORDERED: NALOXONE 0.4 MG/ML 1 ML VIAL IV PRN (23:13)
[2020-01-08] MEDS: SODIUM CHLORIDE 0.9% 1,000 ML IV SCH (23:43)
[2020-01-08] MEDS ORDERED: RIVAROXABAN 20 MG TAB PO STA (23:53)
[2020-01-09] MEDS: PANTOPRAZOLE 40 MG TABLET PO SCH ×2 (00:13→20:45)
--- NOTE | 2020-01-09 03:36 | P.HPIM ---
History of Present Illness H&P Date: 01/09/20 Chief Complaint: fever 2 days duration 74 year old male with B cell lymphoma, afib on anticoagulation , EARL Patient comes in due to 2 day history of fever he had measured his temperature was 101 he did not take any medications for it. He reports that he's been staying home with his keeping social distance and denies any contact with sick people denies any recent travel Patient denies any new associated symptoms with his fever he reports chronic coughing nonproductive has not been changed. He denies any changes in his urinary or bowel habits denies any abdominal pain or chest pain denies any shortness of breath denies any upper respiratory infection symptoms Patient denies any anginal pain or symptoms of exertional dyspnea. Patient denies any history of DVT. He denies any recent changes in his medications. Patient did receive chemotherapy 3 weeks ago. For his B-cell lymphoma Patient contacted his physician who recommended that he comes to the hospital for evaluation In the ED chest x-ray showed no acute changes Blood work was overall unremarkable except for chronic anemia Troponins were elevated patient denies chest pain EKG showed no acute ST changes Covert testing was negative Patient admitted for further evaluation and monitoring to identify any source of underlying infection Review of Systems Pertinent positives as noted in HPI. All other systems were reviewed and are negative Past Medical History Past Medical History: Atrial Flutter, Cancer, Osteoarthritis (OA), Pneumonia, Sleep Apnea/CPAP/BIPAP Additional Past Medical History / Comment(s): HX PERICARDITIS 1988, pneumonia 2013, Uses CPAP, LOWER BACK PAIN, . Lympohoma History of Any Multi-Drug Resistant Organisms: None Reported Past Surgical History: Adenoidectomy, Cardiac Ablation, Joint Replacement, Orthopedic Surgery, Tonsillectomy Additional Past Surgical History / Comment(s): 01/17/15 Atrial flutter ablation. , KNEE ARTHROSCOPIES, NANCY Total KNEE REPLACE., NASAL SURG for fx repair, Colonoscopy w/ polypectomy-benign. Total Rt Hip. RIGHT CATARACT 10/31/19. Past Anesthesia/Blood Transfusion Reactions: No Reported Reaction Past Psychological History: No Psychological Hx Reported Smoking Status: Former smoker Past Alcohol Use History: Occasional Past Drug Use History: None Reported - Past Family History Father Family Medical History: Cancer Additional Family Medical History / Comment(s): LUNG CANCER AND LIVER CANCER Medications and Allergies Home Medications Medication Instructions Recorded Confirmed Type Rivaroxaban [Xarelto] 20 mg PO AC-SUPPER 08/24/19 01/08/20 History Allopurinol [Zyloprim] 300 mg PO DAILY 11/01/19 01/08/20 History Pantoprazole [Protonix] 40 mg PO HS 11/01/19 01/08/20 History Ondansetron [Zofran] 4 mg PO Q8HR PRN 11/20/19 01/08/20 History predniSONE 100 mg PO DIRECTED 11/20/19 01/08/20 History Allergies Allergy/AdvReac Type Severity Reaction Status Date / Time No Known Allergies Allergy Verified 01/08/20 23:19 Physical Exam Vitals: Vital Signs Temp Pulse Resp BP Pulse Ox 01/09/20 00:17 100.0 F H 84 18 117/76 95 01/08/20 23:00 100.1 F H 69 18 123/77 94 L 01/08/20 20:54 102.5 F H 92 18 128/76 94 L Intake and Output 01/08/20 01/08/20 01/09/20 14:59 22:59 06:59 Intake Total 1500 Balance 1500 Intake: Amount of Fluid Infused ( 1500 ml) Other: Weight 127.006 kg Constitutional: No acute distress, conversant, pleasant Eyes: Anicteric sclerae, moist conjunctiva, no lid-lag Pupils equal round reactive to light ENMT: NC/AT Oropharynx clear, no erythema, or exudates Neck: Supple, FROM, no masses, or JVD No carotid bruits No thyromegaly Lungs: Clear to auscultation Clear to percussion Normal respiratory effort, no accessory muscle use Cardiovascular: Heart irregular No murmurs, gallops, or rubs No peripheral edema Abdominal: Soft Nontender, no guarding, rebound or rigidity Abdomen moving with respiration Normoactive bowel sounds No hepatomegaly, No splenomegaly No palpable mass No abdominal wall hernia noted Skin: Right anterior chest [employer] surrounding skin looks healthy no tenderness to palpation no drainage Normal temperature, tone, texture, turgor No induration No subcutaneous nodules No rash, lesions No ulcers Extremities: No digital cyanosis No clubbing Pedal pulses intact and symmetrical Radial pulses intact and symmetrical No calf tenderness Psychiatric: Alert and oriented to person, place and time Appropriate affect fair judgement Neuro Muscles Strength 5/5 in all 4 extremities Sensation to light touch grossly present throughout Cranial nerves II-XII grossly intact No focal sensory deficits Lymphatics: no palpable cervical or supraclavicular , or inguinal lymph nodes Results CBC & Chem 7: 01/08/20 21:38 01/08/20 21:38 Labs: Abnormal Lab Results - Last 24 Hours (Table) 01/08/20 01/08/20 01/08/20 Range/Units 21:38 21:38 21:38 RBC 2.92 L (4.30-5.90) m/uL Hgb 9.8 L (13.0-17.5) gm/dL Hct 30.6 L (39.0-53.0) % MCV 104.5 H (80.0-100.0) fL Lymphocytes # 0.9 L (1.0-4.8) k/uL Sodium 134 L (137-145) mmol/L Glucose 156 H (74-99) mg/dL Troponin I (0.000-0.034) ng/mL C-Reactive Protein (<10.0) mg/L Urine Protein 1+ H (Negative) Urine Mucus Moderate H (None) /hpf 01/08/20 01/08/20 Range/Units 21:38 21:38 RBC (4.30-5.90) m/uL Hgb (13.0-17.5) gm/dL Hct (39.0-53.0) % MCV (80.0-100.0) fL Lymphocytes # (1.0-4.8) k/uL Sodium (137-145) mmol/L Glucose (74-99) mg/dL Troponin I 0.075 H* (0.000-0.034) ng/mL C-Reactive Protein 47.6 H (<10.0) mg/L Urine Protein (Negative) Urine Mucus (None) /hpf Assessment and Plan Assessment: 74 year old male with B cell lymphoma, afib on anticoagulation , EARL comes in with two day history of fever, with no other new symptoms. admitted for workup to rule out infectious process. fever of two day duration , no identified focus of infection CXR no acute process UA unremarkable check blood culture patient with chronic dry cough, no changes tylenol for fever elevated troponin no chest pain trend troponins EKG no acute ST changes chronic macrocytic anemia 2/2 chemotherapy and chronic disease no bleeding chronic conditions afib on anticoagulation , resume home meds B cell lymphoma, on chemotherapy , most recent session 3 weeks ago EARL on cpap CODE STATUS:full code DVT prophylaxis: on anticoagulation for afib Discussed with: Patient, ER, RN Anticipated length of stay > than [address]: home A total of 75 minutes was spent on the care of this complex patient more than 50% of the time was spent in counseling and care coordination.
[2020-01-09 03:49] LABS: HCT 29.6 % (39.0-53.0); HGB 9.7 gm/dL (13.0-17.5); MCH 34.7 pg (25.0-35.0); MCHC 32.7 g/dL (31.0-37.0); MCV 106.3 fL (80.0-100.0); Macrocytosis Moderate; Mean Platelet Volume 7.3; Platelet Count 352 k/uL (150-450); RBC 2.79 m/uL (4.30-5.90); RDW 15.1 % (11.5-15.5); WBC 4.9 k/uL (3.8-10.6)
[2020-01-09 04:01] LABS: African American GFR (CKD) >90 (>60 ml/min/1.73 sqM); Anion Gap 6 mmol/L; Blood Urea Nitrogen 15 mg/dL (9-20); Calcium 8.4 mg/dL (8.4-10.2); Carbon Dioxide 26 mmol/L (22-30); Chloride 103 mmol/L (98-107); Glucose 177 mg/dL (74-99); Non-African American GFR(CKD) 88 (>60 ml/min/1.73 sqM); Sodium 135 mmol/L (137-145)
[2020-01-09 04:02] LABS: Potassium 4.2 mmol/L (3.5-5.1)
[2020-01-09 04:12] LABS: Eosinophils # (M) 0.05 k/uL (0-0.7); Lymphocytes # (M) 1.32 k/uL (1.0-4.8); Monocytes # (M) 1.08 k/uL (0-1.0); Neutrophils # (M) 2.45 k/uL (1.3-7.7); Neutrophils % (M) 50 %; Nucleated Red Blood Cells 0 /100 WBC (0-0); Total Cells Counted 100
[2020-01-09] MEDS: ALLOPURINOL 300 MG TAB PO SCH (09:17)
[2020-01-09] MEDS ORDERED: IPRATROPIUM-ALBUTEROL 3 ML NEB INHALATION PRN (09:29)
[2020-01-09] MEDS ORDERED: CEFEPIME 1 GM VIAL IM SCH (09:30)
[2020-01-09] MEDS: predniSONE 20 MG TAB PO SCH (10:05)
[2020-01-09] MEDS: guaiFENesin 600 MG TABLET.ER PO SCH ×2 (10:05→20:45)
--- NOTE | 2020-01-09 11:29 | P.CONS ---
History of Present Illness - Reason for Consult Consult date: 01/09/20 On chemo for NHL Requesting physician: Britney Urbano - Chief Complaint fever - History of Present Illness Mr. Klein is a very pleasant 74-year-old male patient of Dr. Oilvo'bernabe who presented in August 2019 with a persistent cough, one year duration, persistent. Chest x-ray revealed 8 x 3.8 cm left upper lobe pleural- based mass, small pleural effusion, prominent mediastinal lymph nodes. 08/26/19 PET scan showed suspicious uptake in the aformentioned areas as well as a left lower lobe nodule. 08/28/19 he had navigational bronchoscopy, transbronchial biopsy, bronchial alveolar lavage, all were negative. He went to [facility], had EBUS on 09/21/19, all biopsies negative. 10/11/19 Interventional Radiology biopsy of the left pleura was positive for B-cell lymphoma, positive CD20 and CD45, MUM1/F4, negative for CD10, supporting non-germinal center B-cell lymphoma, KI67 at least 60-70% supporting diagnosis of diffuse large B-cell lymphoma. Bone marrow biopsy was negative. He had his first cycle of RCHOP at [facility] 10/21/19 after Cardiology clearance. He had 2 cycles before getting treatment locally. He was to have prophylactic IT chemotherapy with cycle #3 per [facility], 11/29/19 patient was unable to tolerate the LP and procedure was aborted. 12/08/19 treatment eval PET revealed significant improvement in his disease. 12/20/19 had traumatic LP but, IT chemo was able to be administered, pt has arthritis and spinal stenosis. CSF cytology was negative, flow interpretation limited panel due to low cellularity, 2% marshall yclonal B-cells detected, majority of lymphs are T-cells. He was due for 2nd IT and 5# RCHOP this week. Patient states he started feeling unwell on Wednesday, on Wednesday he spiked a temperature and came to the emergency department. He denied chills, rigors, sore throat, his cough is persistent but unchanged, he is short of breath on exertion, has had small amount of hemoptysis post treatment for a few days, not persistent or progressive, he is on Xarelto for atrial fibrillation, denied chest pain, palpitations, denied any other bleeding, no nausea, vomiting, abdominal pain, dysuria, hematuria, diarrhea, constipation, swelling. He denies any pain, has general malaise today Review of Systems 14 point review of systems is as stated in HPI Past Medical History Past Medical History: Atrial Fibrillation, Cancer, Osteoarthritis (OA), Pneumonia, Sleep Apnea/CPAP/BIPAP Additional Past Medical History / Comment(s): HX PERICARDITIS 1988, pneumonia 2013, Uses CPAP, LOWER BACK PAIN, . Lympohoma History of Any Multi-Drug Resistant Organisms: None Reported Past Surgical History: Adenoidectomy, Cardiac Ablation, Joint Replacement, Orthopedic Surgery, Tonsillectomy Additional Past Surgical History / Comment(s): 01/17/15 Atrial flutter ablation. , KNEE ARTHROSCOPIES, NANCY Total KNEE REPLACE., NASAL SURG for fx repair, Colonoscopy w/ polypectomy-benign. Total Rt Hip. RIGHT CATARACT 10/31/19. Bone marrow biopsy. Pleural biopsy. Past Anesthesia/Blood Transfusion Reactions: No Reported Reaction Past Psychological History: No Psychological Hx Reported Smoking Status: Former smoker Past Alcohol Use History: Occasional Past Drug Use History: None Reported - Past Family History Father Family Medical History: Cancer Additional Family Medical History / Comment(s): LUNG CANCER AND LIVER CANCER Medications and Allergies Home Medications Medication Instructions Recorded Confirmed Type Rivaroxaban [Xarelto] 20 mg PO AC-SUPPER 08/24/19 01/08/20 History Allopurinol [Zyloprim] 300 mg PO DAILY 11/01/19 01/08/20 History Pantoprazole [Protonix] 40 mg PO HS 11/01/19 01/08/20 History Ondansetron [Zofran] 4 mg PO Q8HR PRN 11/20/19 01/08/20 History predniSONE 100 mg PO DIRECTED 11/20/19 01/08/20 History Allergies Allergy/AdvReac Type Severity Reaction Status Date / Time No Known Allergies Allergy Verified 01/08/20 23:19 Physical Exam Vitals: Vital Signs Temp Pulse Pulse Resp BP BP Pulse Ox 01/09/20 08:00 99.1 F 81 20 139/65 95 01/09/20 03:48 98.0 F 66 15 119/59 94 L 01/09/20 01:32 98.1 F 92 17 131/76 95 01/09/20 00:17 100.0 F H 84 18 117/76 95 01/08/20 23:35 98.1 F 92 17 131/76 95 01/08/20 23:00 100.1 F H 69 18 123/77 94 L 01/08/20 20:54 102.5 F H 92 18 128/76 94 L Intake and Output 01/08/20 01/09/20 01/09/20 22:59 06:59 14:59 Intake Total 1500 Balance 1500 Intake: Amount of Fluid Infused ( 1500 ml) Other: Voiding Method Toilet # Voids 2 Weight 127.006 kg 125.5 kg - Constitutional General appearance: cooperative, no acute distress, obese - EENT Eyes: anicteric sclerae, EOMI ENT: hearing grossly normal, normal oropharynx - Neck Neck: no lymphadenopathy - Respiratory Respiratory: bilateral: CTA, diminished - Cardiovascular Rhythm: irregularly irregular Heart sounds: normal: S1, S2 Abnormal Heart Sounds: no systolic murmur, no diastolic murmur, no rub, no S3 Gallop, no S4 Gallop, no click, no other leg Peripheral Edema: bilateral: None - Gastrointestinal General gastrointestinal: no absent bowel sounds, no decreased bowel sounds, no distended, no hepatomegaly, no hyperactive bowel sounds, normal bowel sounds, no organomegaly, no rigid, no scaphoid, soft, no splenomegaly, no tenderness, no umbilical hernia, no ventral hernia - Integumentary Integumentary: normal - Neurologic Neurologic: CNII-XII intact - Musculoskeletal Musculoskeletal: strength equal bilaterally - Psychiatric Psychiatric: A&O x's 3, appropriate affect, intact judgment & insight Results CBC & Chem 7: 01/09/20 03:36 01/09/20 03:36 Labs: Abnormal Lab Results - Last 24 Hours (Table) 01/08/20 01/08/20 01/08/20 Range/Units 21:38 21:38 21:38 RBC 2.92 L (4.30-5.90) m/uL Hgb 9.8 L (13.0-17.5) gm/dL Hct 30.6 L (39.0-53.0) % MCV 104.5 H (80.0-100.0) fL Lymphocytes # 0.9 L (1.0-4.8) k/uL Monocytes # (Manual) (0-1.0) k/uL Sodium 134 L (137-145) mmol/L Glucose 156 H (74-99) mg/dL Troponin I (0.000-0.034) ng/mL C-Reactive Protein (<10.0) mg/L Urine Protein 1+ H (Negative) Urine Mucus Moderate H (None) /hpf 01/08/20 01/08/20 01/09/20 Range/Units 21:38 21:38 03:36 RBC 2.79 L (4.30-5.90) m/uL Hgb 9.7 L (13.0-17.5) gm/dL Hct 29.6 L (39.0-53.0) % MCV 106.3 H (80.0-100.0) fL Lymphocytes # (1.0-4.8) k/uL Monocytes # (Manual) 1.08 H (0-1.0) k/uL Sodium (137-145) mmol/L Glucose (74-99) mg/dL Troponin I 0.075 H* (0.000-0.034) ng/mL C-Reactive Protein 47.6 H (<10.0) mg/L Urine Protein (Negative) Urine Mucus (None) /hpf 01/09/20 01/09/20 Range/Units 03:36 03:36 RBC (4.30-5.90) m/uL Hgb (13.0-17.5) gm/dL Hct (39.0-53.0) % MCV (80.0-100.0) fL Lymphocytes # (1.0-4.8) k/uL Monocytes # (Manual) (0-1.0) k/uL Sodium 135 L (137-145) mmol/L Glucose 177 H (74-99) mg/dL Troponin I 0.080 H* (0.000-0.034) ng/mL C-Reactive Protein (<10.0) mg/L Urine Protein (Negative) Urine Mucus (None) /hpf Chest x-ray: report reviewed Assessment and Plan (1) Febrile Narrative/Plan: Pancultures pending. Abx Rx. Pulmonary following and monitoring patient in regards to his presenting symptoms. Current Visit: Yes Status: Acute Priority: High Code(s): R50.9 - FEVER, UNSPECIFIED SNOMED Code(s): 857441806 (2) DLBCL (diffuse large B cell lymphoma) Narrative/Plan: Treatment on hold. It will be delayed until patient has recovered from his current situation. Current Visit: Yes Status: Chronic Priority: Medium Code(s): C83.30 - DIFFUSE LARGE B-CELL LYMPHOMA, UNSPECIFIED SITE SNOMED Code(s): 521800472 (3) Atrial fibrillation Narrative/Plan: Cont anticoagulation for now Current Visit: Yes Status: Chronic Priority: Low Code(s): I48.91 - UNSPECIFIED ATRIAL FIBRILLATION SNOMED Code(s): 12088219 Plan: CT of the chest to rule out PE.
[2020-01-09] MEDS: IPRATROPIUM-ALBUTEROL 3 ML NEB INHALATION SCH ×2 (11:57→19:31)
--- NOTE | 2020-01-09 12:27 | CT ---
EXAMINATION TYPE: CT angio chest DATE OF EXAM: 01/09/2020 COMPARISON: 08/18/2019 HISTORY: Shortness of breath. CT DLP: 708.6 mGycm CONTRAST: CT chest with contrast and 3D reconstruction with MIP imaging is performed with IV Contrast, patient injected with 100 mL of Isovue 370. Contrast-enhanced CT of the chest was performed through the course of the pulmonary arteries with bi g and mediastinal window settings submitted. 3D reconstruction with MIP imaging was also performed. PULMONARY ARTERIES: The pulmonary arteries and their major tributaries are patent. I do not see elisa dence for sizable filling defect to suggest pulmonary embolic process. LUNGS: Left upper lobe pleural-based mass measures 7.8 x 3.1 cm versus 7.9 x 4.3 cm previously. There is scattered groundglass infiltrates seen throughout both lung gomez which may reflect developing p neumonia. Emphysematous changes persist. Stable 6 mm nodule right upper lobe image 83. Mild subpleura l fibrosis at the lung bases. MEDIASTINUM: Right paratracheal adenopathy measuring 1.6 cm. AP window and 15 measuring 1.1 cm. Subca rinal adenopathy measuring 2.2 cm. HILAR STRUCTURES: 1.2 cm left hilar lymph node. UPPER ABDOMEN: No significant abnormality is seen. IMPRESSION: 1. No evidence for Pulmonary embolism at this time. 2. Persistent but smaller in size left upper lobe pleural-based mass. 3. Interval development of bilateral groundglass infiltrates which may reflect underlying pneumonia. Correlate clinically. 4. Mediastinal and left hilar adenopathy.
[2020-01-09] MEDS: CEFEPIME 1 GM in SODIUM CHLORIDE 0.9% 50 ML IVPB SCH ×2 (12:39→20:44)
--- NOTE | 2020-01-09 16:29 | CONS ---
CONSULTATION PULMONARY/CRITICAL CARE CONSULTATION: DATE OF SERVICE: 01/09/2020 This is a 74-year-old patient well known to me. His primary care physician is Dr. Spaulding. Most recently, he apparently had a chronic cough and initially had a chest x- ray and CAT scan which revealed a mass in the left upper lung. We did a navigational bronchoscopy and was unable to make a diagnosis, although there were some atypical cells noted to the pathologist. Subsequent to that, the patient went to [facility] in [place] and had a biopsy performed and again it was nondiagnostic. Finally, he went back to [facility] a second time, had another biopsy performed. I believe a fine- needle aspiration transthoracically, and a diagnosis of diffuse large B-cell lymphoma was made. He had his initial chemotherapy done at [facility]. It consisted of R-CHOP and since that time, he has had 4 rounds of that chemotherapy. In addition, he has had intrathecal methotrexate given at least 1 time. He had been doing relatively well up until a couple days ago. Apparently on either Wednesday late or Wednesday, the patient started developing a fever. His cough which is present all the time had apparently gotten worse and he also became very short of breath. His called me last night. I asked that she take her to the emergency room immediately. He apparently had a temperature of greater than 101 and he was quite weak, short of breath and coughing significantly. He does state that he coughs up some phlegm from time to time and even coughs up some blood from time to time. The patient was to have chemotherapy again this and also intrathecal methotrexate this week. I told him that was on unlikely to happen. He was also apparently scheduled to have a bone marrow biopsy this week. His oncologist is Dr. Olivo. His primary care physician is Dr. Spaulding. I see him from the pulmonary standpoint. Other than the symptoms above, he denies all other complaints. Denies any headache. Denies any muscle aches or joint aches. Denies any genitourinary complaints such as dysuria, frequency, cloudy urine or foul-smelling urine. He also denies any nausea, vomiting, diarrhea, or abdominal discomfort. HOME MEDICATIONS: Include Xarelto, Zyloprim, Protonix, Zofran, and prednisone. ALLERGIES: Denied. MEDICAL HISTORY: Includes atrial fibrillation, recent diagnosis of diffuse large B-cell lymphoma (DLBCL) osteoarthritis, previous episode of pneumonia, sleep apnea syndrome, currently on CPAP. Other medical history includes an episode of pericarditis in 1988, pneumonia in 2013 and chronic low back pain. SURGICAL HISTORY: Includes adenoidectomy, cardiac ablation, joint replacement, other orthopedic procedures, tonsillectomy, atrial flutter ablation, cardiac ablation for atrial flutter, knee arthroscopies, bilateral knee replacements, nasal surgery for fracture, colonoscopy with polypectomy, right cataract surgery, and port placement. He has also had intrathecal methotrexate. SOCIAL HISTORY: Positive for previous tobacco use. He drinks alcohol socially. Denies any illicit drug use. FAMILY HISTORY: Positive for a father with lung cancer and liver cancer. No history as it relates to his mother. REVIEW OF SYSTEMS: CONSTITUTIONAL: Fever. NEUROLOGIC: Negative. HEENT: Negative. CARDIOVASCULAR: Negative. PULMONARY: Cough, shortness of breath. GI: Negative. : Negative. RHEUMATOLOGIC: Negative. IMMUNOLOGIC; Negative. ENDOCRINOLOGIC: Negative. DERMATOLOGIC:: Negative. Current vital signs are reviewed. Temperature is 99, heart rate 79, respiratory rate 20, blood pressure 124/65 mean 84, 2 L saturation 96%, room air saturation 87% to 88%. Appears to be mildly dyspneic and tachypneic. Mild conversational dyspnea. No audible wheezing. HEENT: Examination is grossly unremarkable. Nasal O2 in place. NECK: Supple, full range of motion. No adenopathy. Neck veins are flat. CARDIOVASCULAR: Examination reveals irregular rhythm and rate. Heart rate 79. S1, S2 normal. Appears to be in atrial fibrillation. No murmur. LUNGS: Reveal a few scattered coarse rhonchi. Breath sounds equal. No wheezes. No crackles. ABDOMEN: Soft, bowel sounds are heard. EXTREMITIES: Intact. There is no cyanosis, clubbing, or edema. SKIN: Without rash. NEUROLOGIC: Examination is brief but nonfocal. LABS: Reviewed. White count 4.9, hemoglobin 9.7, hematocrit 29.6, platelet count 352,000. PT, INR, PTT normal, D-dimer normal. Sodium 135, potassium 4.2, chloride 103, CO2 is 26, anion gap is 6, BUN and creatinine were 15 and 0.83. Troponins were 0.075, 0.080 and 0.075. C-reactive protein 47.6. N terminal proBNP is 570. Urine was negative. The mckeon virus by PCR was negative. A chest x-ray in my opinion shows a mass in the left upper lobe. This is chronic, is pleural-based. In addition, I think there are some mild diffuse infiltrates bilaterally. Microbiology is pending or negative. Chest x-rays reviewed. EKG shows evidence of atrial fibrillation. Medications are reviewed. He is currently on Zyloprim, cefepime, Mucinex, DuoNeb, Narcan, Protonix, prednisone, Xarelto, and saline. ASSESSMENT: 1. Fever, shortness of breath, and cough, rule out COVID-19 infection. The patient is a perfect setup given his symptoms, and the fact that he is immunocompromised given his diagnosis of diffuse large B-cell lymphoma and ongoing chemotherapy. COVID-19 testing though was negative. This may be either true negative or a false negative. 2. History of chronic atrial fibrillation. 3. History of degenerative joint disease. 4. Previous history of pneumonia. 5. History of sleep apnea syndrome. 6. Prior history of pericarditis. 7. Chronic low back pain. 8. Status post 4 rounds of R-CHOP as well as intrathecal methotrexate. 9. Status post ablation for atrial flutter. 10. Diffuse large B cell lymphoma (DLBCL) PLAN: Currently, the patient is on updrafts, oxygen, and antibiotics. Will continue to follow closely. Additional recommendations and suggestions are forthcoming. Inflammatory markers are measured. Additional recommendations are forthcoming. Will continue to follow. Prognosis is guarded. MMODL / IJN: [id number] / MTDD
--- NOTE | 2020-01-09 17:21 | P.PN ---
Progress Note - Text Progress Note Date: 01/09/20 (delayed charting seen at 1030) Hospitalist Interval Note Patient seen and examined at bedside. He states he was feeling fine and just monitoring his fevers is instructed to do so after chemo. He has chronic shortness of breath which may be slightly worsened with ambulation. He has a persistent cough which she states is unchanged and has been there for months and he felt is related to his pulmonary mass. He denies any nausea, vomiting, diarrhea, or dysuria. Vital signs reviewed General: non toxic, no distress, appears at stated age, obese Eyes: EOMI, no lid lag, anicteric sclera Mouth: no lip lesion, mucus membranes moist Cardiovascular: S1S2 reg, no murmur, positive posterior tibial pulse bilateral, Lungs: CTA bilateral, no rhonchi, no rales , no accessory muscle use Abdominal: soft, nontender to palpation, no guarding, no appreciable org anomegaly Ext: no gross muscle atrophy, no edema, no contractures Neuro: CN II-XI grossly intact, no focal neuro deficits Psych: Alert, oriented, appropriate affect Assessment/Plan: 1. Probable bilateral pneumonia-possibly related to coated despite negative Covid 19 testing. Infectious diseases and pulmonary are following. Patient has been started on cefepime and Plaquenil along with guaifenesin 2. Diffuse large B-cell lymphoma-currently undergoing RCHOP therapy. Oncology consulted. 3. Anemia likely related to chemotherapy 4. Atrial fibrillation on chronic anticoagulation 5. Obstructive sleep apnea on CPAP 6. Troponin elevation that is flat and not reflective of coronary artery disease. This is an update note for patient , for full note on 01/08 see H&P. There is no charge associated with this note.
[2020-01-09] MEDS: RIVAROXABAN 20 MG TAB PO SCH (17:33)
[2020-01-09] MEDS: SODIUM CHLORIDE 0.9% 1,000 ML IV SCH (20:44)
[2020-01-09] MEDS: HYDROXYCHLOROQUINE SULFATE 200 MG TAB PO SCH (20:46)
--- NOTE | 2020-01-09 21:55 | P.CONS ---
History of Present Illness - Reason for Consult Consult date: 01/09/20 Fever Requesting physician: Kadi Cameron - Chief Complaint Fever and shortness of breath x 4 days - History of Present Illness Patient is a 74-year male with a past medical history significant for diffuse large B-cell lymphoma for the patient has been on chemotherapy last chemo has been about 3 weeks ago through his right chest wall Mediport patient started having a problem with the fever that started late Wednesday with associated shortness of breath with minimal exertion patient also have a cough which has been mild to moderate intensity and mostly dry in nature with the symptom but the patient presented to [facility] ER on arrival to the ER patient did have a fever of 102.5 F patient did have mild tachycardia with heart rate of 92 patient white count was normal and did have evidence of lymphopenia with a lymphocytic count of 0.9 patient did have elevated troponin creatinine was normal liver enzymes are normal urine was negative: PCR was negative patient did have a chest x-ray which shows cardiomegaly and chronic changes without new meera picious acute cardiopulmonary process subsequently the patient has been evaluated pulmonary services a CT angiogram has been requested which was negative for PE however did shows interval development of bilateral groundglass infiltrates which may reflect underlying pneumonia patient has been started on cefepime infectious was consulted for his fever and recent chemotherapy. Review of Systems Positive point has been mentioned in HPI rest of the systems are negative Past Medical History Past Medical History: Atrial Fibrillation, Cancer, Osteoarthritis (OA), Pneumonia, Sleep Apnea/CPAP/BIPAP Additional Past Medical History / Comment(s): HX PERICARDITIS 1988, pneumonia 2013, Uses CPAP, LOWER BACK PAIN, . Lympohoma History of Any Multi-Drug Resistant Organisms: None Reported Past Surgical History: Adenoidectomy, Cardiac Ablation, Joint Replacement, Orthopedic Surgery, Tonsillectomy Additional Past Surgical History / Comment(s): 01/17/15 Atrial flutter ablation. , KNEE ARTHROSCOPIES, NANCY Total KNEE REPLACE., NASAL SURG for fx repair, Colonoscopy w/ polypectomy-benign. Total Rt Hip. RIGHT CATARACT 10/31/19. Bone marrow biopsy. Pleural biopsy. Past Anesthesia/Blood Transfusion Reactions: No Reported Reaction Past Psychological History: No Psychological Hx Reported Smoking Status: Former smoker Past Alcohol Use History: Occasional Past Drug Use History: None Reported - Past Family History Father Family Medical History: Cancer Additional Family Medical History / Comment(s): LUNG CANCER AND LIVER CANCER Medications and Allergies Home Medications Medication Instructions Recorded Confirmed Type Rivaroxaban [Xarelto] 20 mg PO AC-SUPPER 08/24/19 01/08/20 History Allopurinol [Zyloprim] 300 mg PO DAILY 11/01/19 01/08/20 History Pantoprazole [Protonix] 40 mg PO HS 11/01/19 01/08/20 History Ondansetron [Zofran] 4 mg PO Q8HR PRN 11/20/19 01/08/20 History predniSONE 100 mg PO DIRECTED 11/20/19 01/08/20 History Allergies Allergy/AdvReac Type Severity Reaction Status Date / Time No Known Allergies Allergy Verified 01/08/20 23:19 Physical Exam Vitals: Vital Signs Temp Pulse Pulse Resp BP BP Pulse Ox 01/09/20 19:43 76 16 01/09/20 19:33 75 18 01/09/20 16:00 64 20 97 01/09/20 15:41 98 F 64 20 112/68 97 01/09/20 12:00 96 01/09/20 11:41 99 F 79 20 124/65 96 01/09/20 08:00 99.1 F 81 20 139/65 95 01/09/20 03:48 98.0 F 66 15 119/59 94 L 01/09/20 01:32 98.1 F 92 17 131/76 95 01/09/20 00:17 100.0 F H 84 18 117/76 95 01/08/20 23:35 98.1 F 92 17 131/76 95 01/08/20 23:00 100.1 F H 69 18 123/77 94 L Intake and Output 01/09/20 01/09/20 01/09/20 06:59 14:59 22:59 Intake Total 1900 790 Balance 1900 790 Intake: IV 400 500 Sodium Chloride 0.9% 1, 400 500 000 ml @ 50 mls/hr IV . Q20H DOROTEO Rx#:[id number] Amount of Fluid Infused ( 1500 ml) Intake, IV Titration 50 Amount Cefepime 1 gm In Sodium 50 Chloride 0.9% 50 ml @ 100 mls/hr IVPB Q12HR DOROTEO Rx #:[id number] Oral 240 Other: Voiding Method Toilet Toilet Toilet # Voids 1 1 Weight 125.5 kg GENERAL DESCRIPTION: Elderly male lying in bed, no distress. No tachypnea or accessory muscle of respiration use. HEENT: Shows Pallor , no scleral icterus. Oral mucous membrane is dry. NECK: Trachea central, no thyromegaly. LUNGS: Unlabored breathing. Decrease intensity of breath sounds. No wheeze or crackle. HEART: S1, S2, regular rate and rhythm. ABDOMEN: Soft, no tenderness , guarding or rigidity EXTREMITIES: No edema of feet. SKIN: No rash, no masses palpable. NEUROLOGICAL: The patient is awake, alert, oriented x3, mood and affect normal. Results CBC & Chem 7: 01/09/20 03:36 01/09/20 03:36 Labs: Abnormal Lab Results - Last 24 Hours (Table) 01/08/20 01/08/20 01/08/20 Range/Units 21:38 21:38 21:38 RBC 2.92 L (4.30-5.90) m/uL Hgb 9.8 L (13.0-17.5) gm/dL Hct 30.6 L (39.0-53.0) % MCV 104.5 H (80.0-100.0) fL Lymphocytes # 0.9 L (1.0-4.8) k/uL Monocytes # (Manual) (0-1.0) k/uL Sodium 134 L (137-145) mmol/L Glucose 156 H (74-99) mg/dL Ferritin (22.0-322.0) ng/mL Lactate Dehydrogenase (313-618) U/L Troponin I (0.000-0.034) ng/mL C-Reactive Protein (<10.0) mg/L Procalcitonin (0.02-0.09) ng/mL Urine Protein 1+ H (Negative) Urine Mucus Moderate H (None) /hpf 01/08/20 01/08/20 01/09/20 Range/Units 21:38 21:38 03:36 RBC 2.79 L (4.30-5.90) m/uL Hgb 9.7 L (13.0-17.5) gm/dL Hct 29.6 L (39.0-53.0) % MCV 106.3 H (80.0-100.0) fL Lymphocytes # (1.0-4.8) k/uL Monocytes # (Manual) 1.08 H (0-1.0) k/uL Sodium (137-145) mmol/L Glucose (74-99) mg/dL Ferritin (22.0-322.0) ng/mL Lactate Dehydrogenase (313-618) U/L Troponin I 0.075 H* (0.000-0.034) ng/mL C-Reactive Protein 47.6 H (<10.0) mg/L Procalcitonin (0.02-0.09) ng/mL Urine Protein (Negative) Urine Mucus (None) /hpf 01/09/20 01/09/20 01/09/20 Range/Units 03:36 03:36 03:36 RBC (4.30-5.90) m/uL Hgb (13.0-17.5) gm/dL Hct (39.0-53.0) % MCV (80.0-100.0) fL Lymphocytes # (1.0-4.8) k/uL Monocytes # (Manual) (0-1.0) k/uL Sodium 135 L (137-145) mmol/L Glucose 177 H (74-99) mg/dL Ferritin (22.0-322.0) ng/mL Lactate Dehydrogenase 853 H (313-618) U/L Troponin I 0.080 H* (0.000-0.034) ng/mL C-Reactive Protein (<10.0) mg/L Procalcitonin (0.02-0.09) ng/mL Urine Protein (Negative) Urine Mucus (None) /hpf 01/09/20 01/09/20 01/09/20 Range/Units 09:43 09:43 09:43 RBC (4.30-5.90) m/uL Hgb (13.0-17.5) gm/dL Hct (39.0-53.0) % MCV (80.0-100.0) fL Lymphocytes # (1.0-4.8) k/uL Monocytes # (Manual) (0-1.0) k/uL Sodium (137-145) mmol/L Glucose (74-99) mg/dL Ferritin 490.6 H (22.0-322.0) ng/mL Lactate Dehydrogenase (313-618) U/L Troponin I 0.075 H* (0.000-0.034) ng/mL C-Reactive Protein (<10.0) mg/L Procalcitonin 0.12 H (0.02-0.09) ng/mL Urine Protein (Negative) Urine Mucus (None) /hpf Assessment and Plan Assessment: patient presented to the hospital with fever this patient also have increasing shortness of breath and cough patient chest x-ray was negative however CT angiogram showing groundglass opacities high clinical suspicious for acute COVID-19 pneumonia patient currently with no other obvious clinical focus of infection with UA negative abdominal soft nontender examination and no evidence of any cellulitis. (1) Suspected COVID-19 virus infection Current Visit: Yes Status: Acute Code(s): Z20.828 - CONTACT W AND EXPOSURE TO OTH VIRAL COMMUNICABLE DISEASES SNOMED Code(s): 368918431 (2) Febrile Current Visit: Yes Status: Acute Priority: High Code(s): R50.9 - FEVER, UNSPECIFIED SNOMED Code(s): 677279511 Plan: 1-we will obtain LDH procalcitonin CRP 2-we will start the patient on Plaquenil , patient will be started on prednisone and Xarelto along with cefepime which will be continued 3-droplet isolation and respiratory support We will follow on clinical condition and cultures to further adjust medication if needed Thank you for this consultation we will follow the patient along with you Time with Patient: Greater than 30
[2020-01-10 06:33] LABS: HCT 29.5 % (39.0-53.0); HGB 9.7 gm/dL (13.0-17.5); MCH 34.7 pg (25.0-35.0); MCV 105.1 fL (80.0-100.0); Macrocytosis Moderate; Mean Platelet Volume 7.6; Platelet Count 373 k/uL (150-450); RBC 2.81 m/uL (4.30-5.90); RDW 15.2 % (11.5-15.5); WBC 6.6 k/uL (3.8-10.6)
[2020-01-10 06:50] LABS: ALT 13 U/L (4-49); AST 18 U/L (17-59); African American GFR (CKD) >90 (>60 ml/min/1.73 sqM); Albumin 3.3 g/dL (3.5-5.0); Alkaline Phosphatase 72 U/L (38-126); Anion Gap 4 mmol/L; Blood Urea Nitrogen 13 mg/dL (9-20); Calcium 8.9 mg/dL (8.4-10.2); Carbon Dioxide 28 mmol/L (22-30); Chloride 106 mmol/L (98-107); Creatine Kinase 40 U/L (55-170); Glucose 142 mg/dL (74-99); LDH 546 U/L (313-618); Non-African American GFR(CKD) >90 (>60 ml/min/1.73 sqM); Potassium 4.2 mmol/L (3.5-5.1); Sodium 138 mmol/L (137-145); Total Bilirubin 0.2 mg/dL (0.2-1.3); Total Protein 6.1 g/dL (6.3-8.2)
--- NOTE | 2020-01-10 06:51 | XR ---
EXAMINATION TYPE: XR chest 1V portable DATE OF EXAM: 01/10/2020 CLINICAL HISTORY: Pneumonia progress study. History of lymphoma. TECHNIQUE: Single AP portable upright view of the chest is obtained. COMPARISON: Chest x-ray from 2 days earlier. CTA chest from yesterday. PET/CT December 08, 2019. FINDINGS: Stable right internal jugular Mediport catheter. Background chronic parenchymal change fabiana ng with lateral left upper lung masslike mass or neoplasm redemonstrated. Some increased interstitial and airspace prominence or edema on background chronic parenchymal change felt present. Cardiac silh ouette size upper limits of normal in current study. Osseous structures are intact. IMPRESSION: Background chronic parenchymal fibrotic changes and lateral left upper lobe mass or neopl asm redemonstrated. Mild bilateral interstitial and alveolar edema and/or infiltrates remain present . No significant change from most recent CTA chest study.
[2020-01-10 08:10] LABS: Lymphocytes # (M) 1.06 k/uL (1.0-4.8); Monocytes # (M) 1.39 k/uL (0-1.0); Neutrophils # (M) 4.16 k/uL (1.3-7.7); Neutrophils % (M) 63 %; Nucleated Red Blood Cells 0 /100 WBC (0-0); Total Cells Counted 100
[2020-01-10] MEDS: IPRATROPIUM-ALBUTEROL 3 ML NEB INHALATION SCH (08:17)
[2020-01-10] MEDS: guaiFENesin 600 MG TABLET.ER PO SCH ×2 (08:19→21:18)
[2020-01-10] MEDS: HYDROXYCHLOROQUINE SULFATE 200 MG TAB PO SCH ×2 (08:19→21:18)
[2020-01-10] MEDS: predniSONE 20 MG TAB PO SCH (08:19)
[2020-01-10] MEDS: ALLOPURINOL 300 MG TAB PO SCH (08:19)
[2020-01-10] MEDS: SODIUM CHLORIDE 0.9% 1,000 ML IV SCH (08:20)
[2020-01-10] MEDS: CEFEPIME 1 GM in SODIUM CHLORIDE 0.9% 50 ML IVPB SCH ×2 (08:20→21:18)
[2020-01-10] MEDS ORDERED: ALBUTEROL HFA INHALER INHALATION PRN (09:37)
[2020-01-10 09:55] LABS: C Reactive Protein 51.3 mg/L (<10.0)
--- NOTE | 2020-01-10 11:45 | P.PN ---
Subjective Progress Note Date: 01/10/20 Principal diagnosis: Suspect COVID 19 infection On 01/10/2020 patient seen in follow-up on selective care unit. Room air pulse ox is 93%, fever pattern has improved, afebrile overnight and this morning, still has significant exertional dyspnea and persistent cough. His labs today have been reviewed showing white blood cell, 6.6, hemoglobin of 9.7, lymphocyte count is 1.06, d-dimer was 0.59, electrolytes and renal profile were within normal limits, plasma lactic acid was 1.3, ferritin level was 490, LDH is trending down, today is 546, down from 853 on yesterday's labs, pro-calcitonin was low at 0.12, CRP is 51.3. Urinalysis showed 1+ protein, but no evidence of infection, although his COVID 19 PCR nasal swab was negative, patient's symptoms and CT angios chest suspicious for Covid 19 related infection. CTA chest showed no evidence of pulmonary embolism, persistent but smaller in size left upper lobe pleural based mass related to known history of large B cell lymphoma and interval development of bilateral groundglass infiltrates that may reflect underlying pneumonia, mediastinal and left hilar adenopathy. Objective - Vital Signs Vital signs: Vital Signs Temp 98.2 F 01/10/20 08:00 Pulse 80 01/10/20 08:27 Resp 18 01/10/20 08:00 BP 116/64 01/10/20 08:00 Pulse Ox 93 L 01/10/20 08:00 Intake & Output 01/09/20 01/10/20 01/10/20 18:59 06:59 18:59 Intake Total 790 360 Balance 790 360 Weight 124.5 kg Intake: IV 500 Sodium Chloride 0.9% 1, 500 000 ml @ 50 mls/hr IV . Q20H DOROTEO Rx#:[id number] Intake, IV Titration 50 Amount Cefepime 1 gm In Sodium 50 Chloride 0.9% 50 ml @ 100 mls/hr IVPB Q12HR DOROTEO Rx #:[id number] Oral 240 360 Other: Voiding Method Toilet Toilet Toilet # Voids 1 2 - Exam GENERAL EXAM: Alert, very pleasant, 74-year-old white male, on room air, with a pulse ox of 93% comfortable in no apparent distress. HEAD: Normocephalic/atraumatic. EYES: Normal reaction of pupils, equal size. Conjunctiva pink, sclera white. NOSE: Clear with pink turbinates. THROAT: No erythema or exudates. NECK: No masses, no JVD, no thyroid enlargement, no adenopathy. CHEST: No chest wall deformity. Symmetrical expansion. LUNGS: Equal air entry with no crackles, wheeze, rhonchi or dullness. CVS: Regular rate and rhythm, normal S1 and S2, no gallops, no murmurs, no rubs ABDOMEN: Soft, nontender. No hepatosplenomegaly, normal bowel sounds, no guarding or rigidity. EXTREMITIES: No clubbing, no edema, no cyanosis, 2+ pulses and upper and lower extremities. MUSCULOSKELETAL: Muscle strength and tone normal. SPINE: No scoliosis or deformity SKIN: No rashes CENTRAL NERVOUS SYSTEM: Alert and oriented -3. No focal deficits, tone is normal in all 4 extremities. PSYCHIATRIC: Alert and oriented -3. Appropriate affect. Intact judgment and insight. - Labs CBC & Chem 7: 01/10/20 06:14 01/10/20 06:14 Labs: Abnormal Lab Results - Last 24 Hours (Table) 01/09/20 01/09/20 01/09/20 Range/Units 03:36 09:43 09:43 RBC (4.30-5.90) m/uL Hgb (13.0-17.5) gm/dL Hct (39.0-53.0) % MCV (80.0-100.0) fL Monocytes # (Manual) (0-1.0) k/uL Glucose (74-99) mg/dL Ferritin 490.6 H (22.0-322.0) ng/mL Lactate Dehydrogenase 853 H (313-618) U/L Creatine Kinase (55-170) U/L C-Reactive Protein (<10.0) mg/L Total Protein (6.3-8.2) g/dL Albumin (3.5-5.0) g/dL Procalcitonin 0.12 H (0.02-0.09) ng/mL 01/10/20 01/10/20 Range/Units 06:14 06:14 RBC 2.81 L (4.30-5.90) m/uL Hgb 9.7 L (13.0-17.5) gm/dL Hct 29.5 L (39.0-53.0) % MCV 105.1 H (80.0-100.0) fL Monocytes # (Manual) 1.39 H (0-1.0) k/uL Glucose 142 H (74-99) mg/dL Ferritin (22.0-322.0) ng/mL Lactate Dehydrogenase (313-618) U/L Creatine Kinase 40 L (55-170) U/L C-Reactive Protein 51.3 H (<10.0) mg/L Total Protein 6.1 L (6.3-8.2) g/dL Albumin 3.3 L (3.5-5.0) g/dL Procalcitonin (0.02-0.09) ng/mL Microbiology - Last 24 Hours (Table) 01/08/20 21:38 Blood Culture - Preliminary Blood No Growth after 24 hours Assessment and Plan Plan: Assessment: #1. Fever, shortness of breath, cough, bilateral groundglass opacities, highly suspicious for COVID 19 pneumonitis, despite COVID 19 PCR being negative #2. Elevated troponin, CRP, ferritin and LDH related to suspected COVID 19 infection #3. Immunocompromised host related to his history of diffuse large B-cell lymphoma and ongoing chemotherapy #4. History of chronic atrial flutter status post ablation #5. History of degenerative joint disease #6. History of sleep apnea syndrome #7. Prior history of pericarditis #8. Chronic low back pain #9. Status post 4 rounds of R-CHOP as well as intrathecal methotrexate #10. Diffuse large B-cell lymphoma Plan: Findings of CTA chest on highly suspicious for COVID 19 pneumonitis, continue with current medical treatment, patient has been started on Plaquenil, he remains on prednisone, and empiric antibiotics including cefepime. Continue Mucinex, inhalers. Patient will likely need to be moved to 4 S to be cohorted with the Covid 19 patients. Vital signs are stable, patient is afebrile, still has significant exertional dyspnea, and fatigue. But no acute distress, we'll continue to closely monitor, continue serial LDH, CRP, ferritin and d-dimer. We'll continue to closely follow his course I performed a history & physical examination of the patient and discussed their management with my nurse practitioner, Christina Tolbert. I reviewed the nurse practitioner's note and agree with the documented findings and plan of care. Lung sounds are positive for diminished breath sounds. The findings and the impression was discussed with the patient. I attest to the documentation by the nurse practitioner. Time with Patient: Less than 30
[2020-01-10] MEDS: ALBUTEROL HFA INHALER INHALATION SCH ×2 (12:23→20:13)
--- NOTE | 2020-01-10 13:12 | P.PN ---
Subjective Patient is doing fairly well today. He said that his cough and shortness of breath or chronic and unchanged. He denies any fevers or chills. No acute events overnight reported by nursing staff. Objective - Vital Signs Vital signs: Vital Signs Temp 98.7 F 01/10/20 12:00 Pulse 68 01/10/20 12:00 Resp 16 01/10/20 12:00 BP 117/71 01/10/20 12:00 Pulse Ox 94 L 01/10/20 12:00 Intake & Output 01/09/20 01/10/20 01/10/20 18:59 06:59 18:59 Intake Total 790 360 Balance 790 360 Weight 124.5 kg Intake: IV 500 Sodium Chloride 0.9% 1, 500 000 ml @ 50 mls/hr IV . Q20H [facility]OTEO Rx#:[id number] Intake, IV Titration 50 Amount Cefepime 1 gm In Sodium 50 Chloride 0.9% 50 ml @ 100 mls/hr IVPB Q12HR [facility]O Rx #:[id number] Oral 240 360 Other: Voiding Method Toilet Toilet Toilet # Voids 1 2 - Exam General: The patient is awake and alert, in no distress Eye: there is normal conjunctiva bilaterally. Neck: The neck is supple, there is no JVD. Cardiovascular: Normal S1-S2, no S3-S4, no murmurs. Respiratory: Lungs clear to auscultation bilaterally Gastrointestinal: Abdomen is soft, nontender Musculoskeletal: There is no pedal edema. Neurological:. Speech is normal. Skin: Skin is warm and dry - Labs CBC & Chem 7: 01/10/20 06:14 01/10/20 06:14 Labs: Abnormal Lab Results - Last 24 Hours (Table) 01/09/20 01/09/20 01/09/20 Range/Units 03:36 09:43 09:43 RBC (4.30-5.90) m/uL Hgb (13.0-17.5) gm/dL Hct (39.0-53.0) % MCV (80.0-100.0) fL Monocytes # (Manual) (0-1.0) k/uL Glucose (74-99) mg/dL Ferritin 490.6 H (22.0-322.0) ng/mL Lactate Dehydrogenase 853 H (313-618) U/L Creatine Kinase (55-170) U/L C-Reactive Protein (<10.0) mg/L Total Protein (6.3-8.2) g/dL Albumin (3.5-5.0) g/dL Procalcitonin 0.12 H (0.02-0.09) ng/mL 01/10/20 01/10/20 Range/Units 06:14 06:14 RBC 2.81 L (4.30-5.90) m/uL Hgb 9.7 L (13.0-17.5) gm/dL Hct 29.5 L (39.0-53.0) % MCV 105.1 H (80.0-100.0) fL Monocytes # (Manual) 1.39 H (0-1.0) k/uL Glucose 142 H (74-99) mg/dL Ferritin (22.0-322.0) ng/mL Lactate Dehydrogenase (313-618) U/L Creatine Kinase 40 L (55-170) U/L C-Reactive Protein 51.3 H (<10.0) mg/L Total Protein 6.1 L (6.3-8.2) g/dL Albumin 3.3 L (3.5-5.0) g/dL Procalcitonin (0.02-0.09) ng/mL Microbiology - Last 24 Hours (Table) 01/08/20 21:38 Blood Culture - Preliminary Blood No Growth after 24 hours Assessment and Plan Assessment: 1. Bilateral pneumonia: With very high clinical suspicion for Covid 19. Covid 19 PCR negative. Patient had elevated CRP, LDH, and troponin on presentation. Seen and evaluated by infectious disease and pulmonology. Currently on broad- spectrum antibiotic with IV cefepime. Hydroxychloroquine and steroid per infectious disease. We will continue supportive care. No evidence of hypoxia. 2. Diffuse large B-cell lymphoma on chemotherapy, oncology following 3. Anemia: Most likely chemo-induced 4. Chronic atrial fibrillation on anticoagulation with Rivaroxaban 5. Obstructive sleep apnea 6. Troponin elevation: Most likely non-thrombotic troponin leak Continue supportive care. Appreciate supervisor home energy consultant's recommendations. Repeat lab work in the morning. Continue isolation.
--- NOTE | 2020-01-10 13:32 | P.PN ---
Subjective Progress Note Date: 01/10/20 Principal diagnosis: fever In f/u today pt states he is feeling better then on admit, still SOB but stable, little better, no fever, nausea, he is hungry, no chest pain, abd pain, diarrhea, swelling. No other pain to report Objective - Vital Signs Vital signs: Vital Signs Temp 98.7 F 01/10/20 12:00 Pulse 68 01/10/20 12:00 Resp 16 01/10/20 12:00 BP 117/71 01/10/20 12:00 Pulse Ox 94 L 01/10/20 12:00 Intake & Output 01/09/20 01/10/20 01/10/20 18:59 06:59 18:59 Intake Total 790 360 Balance 790 360 Weight 124.5 kg Intake: IV 500 Sodium Chloride 0.9% 1, 500 000 ml @ 50 mls/hr IV . Q20H [facility]OTEO Rx#:[id number] Intake, IV Titration 50 Amount Cefepime 1 gm In Sodium 50 Chloride 0.9% 50 ml @ 100 mls/hr IVPB Q12HR [facility] Rx #:[id number] Oral 240 360 Other: Voiding Method Toilet Toilet Toilet # Voids 1 2 - Constitutional General appearance: Present: cooperative, no acute distress, obese - EENT Eyes: Present: anicteric sclerae, EOMI ENT: Present: hearing grossly normal, normal oropharynx - Respiratory Respiratory: bilateral: CTA, diminished - Cardiovascular Heart sounds: normal: S1, S2 - Peripheral edema leg Peripheral Edema: bilateral: None - Gastrointestinal General gastrointestinal: Present: normal bowel sounds, soft - Integumentary Integumentary: Present: pale - Neurologic Neurologic: Present: CNII-XII intact - Musculoskeletal Musculoskeletal: Present: strength equal bilaterally - Psychiatric Psychiatric: Present: A&O x's 3, appropriate affect, intact judgment & insight - Labs CBC & Chem 7: 01/10/20 06:14 01/10/20 06:14 Labs: Abnormal Lab Results - Last 24 Hours (Table) 01/09/20 01/09/20 01/09/20 Range/Units 03:36 09:43 09:43 RBC (4.30-5.90) m/uL Hgb (13.0-17.5) gm/dL Hct (39.0-53.0) % MCV (80.0-100.0) fL Monocytes # (Manual) (0-1.0) k/uL Glucose (74-99) mg/dL Ferritin 490.6 H (22.0-322.0) ng/mL Lactate Dehydrogenase 853 H (313-618) U/L Creatine Kinase (55-170) U/L C-Reactive Protein (<10.0) mg/L Total Protein (6.3-8.2) g/dL Albumin (3.5-5.0) g/dL Procalcitonin 0.12 H (0.02-0.09) ng/mL 01/10/20 01/10/20 Range/Units 06:14 06:14 RBC 2.81 L (4.30-5.90) m/uL Hgb 9.7 L (13.0-17.5) gm/dL Hct 29.5 L (39.0-53.0) % MCV 105.1 H (80.0-100.0) fL Monocytes # (Manual) 1.39 H (0-1.0) k/uL Glucose 142 H (74-99) mg/dL Ferritin (22.0-322.0) ng/mL Lactate Dehydrogenase (313-618) U/L Creatine Kinase 40 L (55-170) U/L C-Reactive Protein 51.3 H (<10.0) mg/L Total Protein 6.1 L (6.3-8.2) g/dL Albumin 3.3 L (3.5-5.0) g/dL Procalcitonin (0.02-0.09) ng/mL Microbiology - Last 24 Hours (Table) 01/08/20 21:38 Blood Culture - Preliminary Blood No Growth after 24 hours - Imaging and Cardiology Chest x-ray: report reviewed Assessment and Plan (1) Febrile Narrative/Plan: No fever since admit. Pancultures neg thus far. Abx Rx. Pulmonary following and monitoring patient in regards to his presenting symptoms. Current Visit: Yes Status: Acute Priority: High Code(s): R50.9 - FEVER, UNSPECIFIED SNOMED Code(s): 560342573 (2) DLBCL (diffuse large B cell lymphoma) Narrative/Plan: Treatment on hold. It will be delayed until patient has recovered from his current situation. Current Visit: Yes Status: Chronic Priority: Medium Code(s): C83.30 - DIFFUSE LARGE B-CELL LYMPHOMA, UNSPECIFIED SITE SNOMED Code(s): 091428353 (3) Atrial fibrillation Narrative/Plan: Cont anticoagulation for now Current Visit: Yes Status: Chronic Priority: Low Code(s): I48.91 - UNSPECIFIED ATRIAL FIBRILLATION SNOMED Code(s): 58431996 Plan: CT of the chest to rule out PE was negative.
--- NOTE | 2020-01-10 16:58 | PN ---
PROGRESS NOTE DATE OF SERVICE: 01/10/2020 REASON FOR FOLLOWUP: Pneumonia, possible COVID-19. INTERVAL HISTORY: The patient is currently afebrile. The patient is breathing more comfortably. The patient denies having any chest pain. He did have some cough. Unable to bring up up some sputum. No nausea, no vomiting. No abdominal pain, no diarrhea. PHYSICAL EXAMINATION: Blood pressure 109/67 with a pulse of 86, temperature 98.6. He is 94% on room air. General description is an elderly male, up in the chair in no distress. RESPIRATORY SYSTEM: Unlabored breathing, decreased breath sounds at the base. No wheeze. HEART: S1, S2. Regular rate and rhythm. ABDOMEN: Soft, no tenderness. LABS: Hemoglobin 9.4, white count of 6.6, BUN of 13, creatinine 0.74. CRP is 51.3. Fluid cultures are elevated, blood cultures are negative. Sputum is pending. DIAGNOSTIC IMPRESSION AND PLAN: Patient admitted to the hospital with fever, shortness of breath and cough which is likely multifactorial, concern for possible COVID-19. In view of the ground- glass opacity seen on the chest CT, underlying bacterial pneumonia less likely but not entirely excluded. Patient clinically responding to Plaquenil and cefepime to continue. Will wait for the culture to finalize and monitor clinical course closely. Continue supportive care. MMODL / DONNIEN: [id number] / MTDD
[2020-01-10] MEDS: RIVAROXABAN 20 MG TAB PO SCH (17:41)
[2020-01-10] MEDS: PANTOPRAZOLE 40 MG TABLET PO SCH (21:18)
[2020-01-11 07:09] LABS: Basophils % (A) 0 %; Eosinophils % (A) 0 %; HCT 29.9 % (39.0-53.0); HGB 9.7 gm/dL (13.0-17.5); Hypochromasia Slight; Lymphocytes # (A) 1.4 k/uL (1.0-4.8); Lymphocytes % (A) 22 %; MCH 34.3 pg (25.0-35.0); MCHC 32.4 g/dL (31.0-37.0); MCV 106.2 fL (80.0-100.0); Macrocytosis Moderate; Mean Platelet Volume 7.4; Monocytes # (A) 0.6 k/uL (0-1.0); Monocytes % (A) 9 %; Neutrophils # (A) 4.1 k/uL (1.3-7.7); Neutrophils % (A) 65 %; Platelet Count 428 k/uL (150-450); RBC 2.82 m/uL (4.30-5.90); RDW 15.4 % (11.5-15.5); WBC 6.3 k/uL (3.8-10.6)
[2020-01-11 07:19] LABS: ALT 16 U/L (4-49); AST 19 U/L (17-59); African American GFR (CKD) >90 (>60 ml/min/1.73 sqM); Albumin 3.4 g/dL (3.5-5.0); Alkaline Phosphatase 73 U/L (38-126); Anion Gap 9 mmol/L; Blood Urea Nitrogen 12 mg/dL (9-20); Carbon Dioxide 25 mmol/L (22-30); Chloride 105 mmol/L (98-107); Creatine Kinase 41 U/L (55-170); Glucose 126 mg/dL (74-99); LDH 552 U/L (313-618); Non-African American GFR(CKD) >90 (>60 ml/min/1.73 sqM); Potassium 4.3 mmol/L (3.5-5.1); Sodium 139 mmol/L (137-145); Total Bilirubin 0.2 mg/dL (0.2-1.3); Total Protein 6.3 g/dL (6.3-8.2)
[2020-01-11 08:04] LABS: C Reactive Protein 43.3 mg/L (<10.0)
[2020-01-11] MEDS: HYDROXYCHLOROQUINE SULFATE 200 MG TAB PO SCH ×2 (08:20→21:00)
[2020-01-11] MEDS: guaiFENesin 600 MG TABLET.ER PO SCH ×2 (08:20→21:00)
[2020-01-11] MEDS: ALLOPURINOL 300 MG TAB PO SCH (08:20)
[2020-01-11] MEDS: predniSONE 20 MG TAB PO SCH (08:20)
[2020-01-11] MEDS: CEFEPIME 1 GM in SODIUM CHLORIDE 0.9% 50 ML IVPB SCH ×2 (08:28→21:00)
[2020-01-11] MEDS: ALBUTEROL HFA INHALER INHALATION SCH ×3 (08:52→19:22)
--- NOTE | 2020-01-11 12:06 | P.PN ---
Subjective Progress Note Date: 01/11/20 Principal diagnosis: fever In f/u today pt states is feeling good, no fever, nausea, chest pain, abd pain, diarrhea, pain, swelling, appetite is good, cough is dry, no HIRAM, mild SOB on exertion. Objective - Vital Signs Vital signs: Vital Signs Temp 98.2 F 01/11/20 08:00 Pulse 73 01/11/20 08:22 Resp 18 01/11/20 08:22 BP 126/70 01/11/20 08:00 Pulse Ox 96 01/11/20 08:00 Intake & Output 01/10/20 01/11/20 01/11/20 18:59 06:59 18:59 Intake Total 1782 Balance 1782 Weight 124 kg Intake: Intake, IV Titration 350 Amount Cefepime 1 gm In Sodium 50 Chloride 0.9% 50 ml @ 100 mls/hr IVPB Q12HR [facility] Rx #:[id number] Sodium Chloride 0.9% 1, 300 000 ml @ 50 mls/hr IV . Q20H [facility] Rx#:[id number] Oral 1432 Other: Voiding Method Toilet Toilet - Constitutional General appearance: Present: average body habitus, cooperative, no acute distress - EENT Eyes: Present: anicteric sclerae, EOMI ENT: Present: hearing grossly normal - Respiratory Details: resp even and unlabored - Cardiovascular Details: skin warm and dry, radial pulse 2+ - Neurologic Neurologic: Present: CNII-XII intact - Musculoskeletal Musculoskeletal: Present: strength equal bilaterally - Psychiatric Psychiatric: Present: A&O x's 3, appropriate affect, intact judgment & insight - Labs CBC & Chem 7: 01/11/20 06:12 01/11/20 06:12 Labs: Abnormal Lab Results - Last 24 Hours (Table) 01/11/20 01/11/20 01/11/20 Range/Units 06:12 06:12 06:12 RBC 2.82 L (4.30-5.90) m/uL Hgb 9.7 L (13.0-17.5) gm/dL Hct 29.9 L (39.0-53.0) % MCV 106.2 H (80.0-100.0) fL Glucose 126 H (74-99) mg/dL Ferritin 469.2 H (22.0-322.0) ng/mL Creatine Kinase 41 L (55-170) U/L C-Reactive Protein 43.3 H (<10.0) mg/L Albumin 3.4 L (3.5-5.0) g/dL Microbiology - Last 24 Hours (Table) 01/10/20 08:30 Sputum Culture - Preliminary Sputum 01/08/20 21:38 Blood Culture - Preliminary Blood No Growth after 48 hours Assessment and Plan (1) Febrile Narrative/Plan: No fever since admit. Pancultures neg thus far. Pulmonary treating Current Visit: Yes Status: Resolved Priority: High Code(s): R50.9 - FEVER, UNSPECIFIED SNOMED Code(s): 871098965 (2) DLBCL (diffuse large B cell lymphoma) Narrative/Plan: Treatment on hold. It will be delayed until patient has recovered from his current situation and treatment has been completed. Pt verbalized understanding the plan Current Visit: Yes Status: Chronic Priority: Medium Code(s): C83.30 - DIFFUSE LARGE B-CELL LYMPHOMA, UNSPECIFIED SITE SNOMED Code(s): 890976983 (3) Atrial fibrillation Narrative/Plan: Cont anticoagulation Current Visit: Yes Status: Chronic Priority: Low Code(s): I48.91 - UNSPECIFIED ATRIAL FIBRILLATION SNOMED Code(s): 58782868 Plan: CT of the chest to rule out PE was negative.
--- NOTE | 2020-01-11 12:42 | PN ---
PROGRESS NOTE PULMONARY/CRITICAL CARE PROGRESS NOTE: DATE OF SERVICE: 01/11/2020 This is a 74-year-old well white male, well known to me. He is seen again. The patient is resting comfortably. Not on any nasal O2. Only on his IV of saline at 20 mL an hour. The patient has suspected COVID-19 pneumonia. His CAT scan was consistent as was his clinical presentation. His nasopharyngeal swab, was negative. The patient is on appropriate medications. He has been seen by Infectious Diseases. CT scan of the chest was reviewed. I did tell the patient that he be feeling well tomorrow, still doing well, not on any supplemental oxygen and his chest x-ray and inflammatory markers are moving in a good direction, the patient could be discharged to home. Current vital signs are reviewed. Temperature 98.2, heart rate 73, respiratory rate 18, blood pressure 126/70, mean 88, room air saturation 96% to 97% on room air. Appears in no acute distress. HEENT: Examination is grossly unremarkable. Mucous membranes are moist. No oral lesions. Neck is supple, full range of motion. No adenopathy, thyromegaly or neck vein distention. CARDIOVASCULAR: Examination reveals regular rhythm and rate. Heart rate 73. S1, S2 normal. No S3, S4, or murmur. LUNGS: Reveal a few scattered rhonchi. No wheezes or crackles. Breath sounds equal. ABDOMEN: Soft, bowel sounds are heard. EXTREMITIES: Intact. No edema. SKIN: Without rash. NEUROLOGIC: Examination is brief but nonfocal. CBC is reviewed. White count is 6.3, hemoglobin 9.7, hematocrit 29.9, platelet count 428,000. His D-dimer was 0.59 and subsequent D-dimer was 0.47. Sodium 139, potassium 4.3, chloride is 105, CO2 is 25, anion gap is 9. BUN and creatinine were 12 and 0.73. His ferritin was 490 down to 469.2. His LDH was 853 down to 552. Troponins were mildly elevated at 0.075, 0.080 and 0.075. C-reactive protein is down to 43.3 from 51.3. Procalcitonin is 0.12. A chest x-ray will be repeated tomorrow morning. HOME MEDICATIONS: Reviewed. He is currently on albuterol inhaler, allopurinol, Maxipime, Mucinex, hydroxychloroquine, Narcan, Protonix, prednisone and Xarelto. ASSESSMENT: 1. Suspected COVID-19 pneumonitis, even though his rapid nasopharyngeal swab was negative. 2. Fever, cough and shortness of breath, all consistent with acute COVID-19 pneumonitis. 3. Elevated inflammatory markers secondary to COVID-19 infection. 4. Immunocompromised host, the patient has a recent diagnosis of diffuse large B-cell lymphoma, status post 4 rounds of R-CHOP and intrathecal methotrexate. 5. History of chronic atrial flutter/fibrillation, status post ablation. 6. History of degenerative joint disease. 7. History of sleep apnea syndrome. 8. Prior history of pericarditis. 9. Chronic low back pain. 10.Diffuse large B-cell lymphoma, diagnosed at [facility] in [place]. PLAN: The patient may be discharged tomorrow. He is doing well. He is back to room air. Will do a chest x-ray and inflammatory markers in the morning. Patient feels well. Additional recommendations and suggestions are forthcoming. Prognosis is guarded. MMODL / IJN: [id number] /
--- NOTE | 2020-01-11 13:38 | P.PN ---
Subjective Patient is doing fairly well today. No acute events overnight reported by nursing staff. Objective - Vital Signs Vital signs: Vital Signs Temp 98.2 F 01/11/20 08:00 Pulse 73 01/11/20 08:22 Resp 18 01/11/20 08:22 BP 126/70 01/11/20 08:00 Pulse Ox 96 01/11/20 08:00 Intake & Output 01/10/20 01/11/20 01/11/20 18:59 06:59 18:59 Intake Total 1782 Balance 1782 Weight 124 kg Intake: Intake, IV Titration 350 Amount Cefepime 1 gm In Sodium 50 Chloride 0.9% 50 ml @ 100 mls/hr IVPB Q12HR [facility] Rx #:[id number] Sodium Chloride 0.9% 1, 300 000 ml @ 50 mls/hr IV . Q20H [facility] Rx#:[id number] Oral 1432 Other: Voiding Method Toilet Toilet - Exam General: The patient is awake and alert, in no distress Eye: there is normal conjunctiva bilaterally. Neck: The neck is supple, there is no JVD. Cardiovascular: Normal S1-S2, no S3-S4, no murmurs. Respiratory: Lungs clear to auscultation bilaterally Gastrointestinal: Abdomen is soft, nontender Musculoskeletal: There is no pedal edema. Neurological:. Speech is normal. Skin: Skin is warm and dry - Labs CBC & Chem 7: 01/11/20 06:12 01/11/20 06:12 Labs: Abnormal Lab Results - Last 24 Hours (Table) 01/11/20 01/11/20 01/11/20 Range/Units 06:12 06:12 06:12 RBC 2.82 L (4.30-5.90) m/uL Hgb 9.7 L (13.0-17.5) gm/dL Hct 29.9 L (39.0-53.0) % MCV 106.2 H (80.0-100.0) fL Glucose 126 H (74-99) mg/dL Ferritin 469.2 H (22.0-322.0) ng/mL Creatine Kinase 41 L (55-170) U/L C-Reactive Protein 43.3 H (<10.0) mg/L Albumin 3.4 L (3.5-5.0) g/dL Microbiology - Last 24 Hours (Table) 01/10/20 08:30 Sputum Culture - Preliminary Sputum 01/08/20 21:38 Blood Culture - Preliminary Blood No Growth after 48 hours Assessment and Plan Assessment: 1. Bilateral pneumonia: With very high clinical suspicion for Covid 19. Covid 19 PCR negative. Patient had elevated CRP, LDH, and troponin on presentation. Seen and evaluated by infectious disease and pulmonology. Currently on broad- spectrum antibiotic with IV cefepime. Hydroxychloroquine and steroid per infectious disease. We will continue supportive care. No evidence of hypoxia. 2. Diffuse large B-cell lymphoma on chemotherapy, oncology following 3. Anemia: Most likely chemo-induced 4. Chronic atrial fibrillation on anticoagulation with Rivaroxaban 5. Obstructive sleep apnea 6. Troponin elevation: Most likely non-thrombotic troponin leak Continue supportive care. Appreciate senior market intelligence consultant's recommendations. Repeat lab work in the morning. Continue isolation.
[2020-01-11] MEDS: RIVAROXABAN 20 MG TAB PO SCH (17:30)
--- NOTE | 2020-01-11 18:02 | PN ---
PROGRESS NOTE DATE OF SERVICE: 01/11/2020 REASON FOR FOLLOWUP: Pneumonia and a question of COVID-19. INTERVAL HISTORY: The patient is currently afebrile. The patient has been feeling better, breathing comfortably. Patient's breathing has improved. Cough has decreased in intensity. No chest pain. No abdominal pain. No diarrhea. PHYSICAL EXAMINATION: Blood pressure 124/77, pulse of 62, temperature 98.2. He is 93% on room air. General description is an elderly male up in the chair in no distress. RESPIRATORY SYSTEM: Unlabored breathing with decreased intensity of breath sounds. No wheeze. HEART: S1, S2. Regular rate and rhythm. ABDOMEN: Soft. No tenderness. LABS: Hemoglobin 9.7, white count 6.3 with BUN of 12, creatinine 0.73. DIAGNOSTIC IMPRESSION AND PLAN: Patient admitted to hospital with fever, respiratory symptoms, concern likely for pneumonia, question of bacterial versus COVID-19. The patient clinically improved on the cefepime and Plaquenil. Will finish therapy with oral antibiotics. Continue with supportive care. MMODL / DONNIEN: [id number] /
[2020-01-11] MEDS: PANTOPRAZOLE 40 MG TABLET PO SCH (21:00)
[2020-01-11] MEDS ORDERED: METOPROLOL TARTRATE 25 MG TAB PO STA (22:24)
[2020-01-12] MEDS: predniSONE 20 MG TAB PO SCH (07:53)
[2020-01-12] MEDS: guaiFENesin 600 MG TABLET.ER PO SCH (07:53)
[2020-01-12 07:54] LABS: ALT 20 U/L (4-49); AST 21 U/L (17-59); African American GFR (CKD) >90 (>60 ml/min/1.73 sqM); Albumin 3.5 g/dL (3.5-5.0); Alkaline Phosphatase 77 U/L (38-126); Anion Gap 8 mmol/L; Blood Urea Nitrogen 15 mg/dL (9-20); Calcium 9.3 mg/dL (8.4-10.2); Carbon Dioxide 27 mmol/L (22-30); Chloride 103 mmol/L (98-107); Creatine Kinase 33 U/L (55-170); Glucose 133 mg/dL (74-99); LDH 524 U/L (313-618); Non-African American GFR(CKD) >90 (>60 ml/min/1.73 sqM); Potassium 4.2 mmol/L (3.5-5.1); Sodium 138 mmol/L (137-145); Total Bilirubin 0.2 mg/dL (0.2-1.3); Total Protein 6.4 g/dL (6.3-8.2)
[2020-01-12] MEDS: ALLOPURINOL 300 MG TAB PO SCH (07:54)
[2020-01-12] MEDS: CEFEPIME 1 GM in SODIUM CHLORIDE 0.9% 50 ML IVPB SCH (07:54)
[2020-01-12] MEDS: HYDROXYCHLOROQUINE SULFATE 200 MG TAB PO SCH (07:54)
[2020-01-12 07:55] LABS: Basophils % (A) 1 %; Eosinophils % (A) 0 %; HCT 30.1 % (39.0-53.0); HGB 9.8 gm/dL (13.0-17.5); Hypochromasia Slight; Lymphocytes # (A) 1.6 k/uL (1.0-4.8); Lymphocytes % (A) 25 %; MCH 34.6 pg (25.0-35.0); MCHC 32.7 g/dL (31.0-37.0); Macrocytosis Moderate; Mean Platelet Volume 7.3; Monocytes # (A) 0.7 k/uL (0-1.0); Monocytes % (A) 11 %; Neutrophils # (A) 3.7 k/uL (1.3-7.7); Neutrophils % (A) 60 %; Platelet Count 427 k/uL (150-450); RBC 2.84 m/uL (4.30-5.90); WBC 6.2 k/uL (3.8-10.6)
--- NOTE | 2020-01-12 08:07 | XR ---
EXAMINATION TYPE: XR chest 1V portable DATE OF EXAM: 01/12/2020 COMPARISON: 01/10/2020 HISTORY: Pneumonitis. Shortness of breath. TECHNIQUE: Single frontal view of the chest is obtained. FINDINGS: Peripheral left upper lung and midlung opacity is similar to the prior related to a pleura l-based mass seen on the prior CT of 01/09/2020. The bilateral groundglass opacities seen on the prior CT are better appreciated on CT and ultrasound. Right-sided Mediport remains. Stable size of the card iomediastinal silhouette. No acute osseous pathology seen. IMPRESSION: Redemonstration of a left-sided pleural-based mass. In the bilateral known groundglass o pacities seen on the CT of 01/09/2020 are best viewed on CT and not well appreciated radiographically.
[2020-01-12] MEDS: ALBUTEROL HFA INHALER INHALATION SCH ×2 (08:14→12:21)
[2020-01-12 08:38] LABS: C Reactive Protein 32.5 mg/L (<10.0)
[2020-01-12 08:46] VITALS: BP 116/81; PULSE 64; RESP 16; TEMP 98
[2020-01-12] MEDS ORDERED: METOPROLOL TARTRATE 12.5 MG TAB PO SCH (09:00)
--- NOTE | 2020-01-12 09:38 | P.DS ---
Providers Date of admission: 01/08/20 23:14 Expected date of discharge: 01/12/20 Attending physician: Kadi Cameron MD Consults: 01/08/20 23:14 Consult Physician Urgent Consulting Provider: Jennifer Olivo Consult Reason/Comments: b cell lymphoma on chemotherapy Do you want consulting provider notified?: Yes 01/08/20 23:15 Consult Physician Urgent Consulting Provider: Livia Pagan Consult Reason/Comments: febrile, on active chemo Do you want consulting provider notified?: Yes Primary care physician: Saeed Spaulding [facility] Course: This is a 74-year-old male with complex past medical history noted below significant for B-cell lymphoma presented to the emergency room with fever and shortness of breath. Patient was evaluated in the ER and admitted to the hospital for further management of his medical problems noted below. 1. Bilateral pneumonia: See on CT angiogram of the chest. CT was negative for PE. Very high clinical suspicion for Covid 19. Covid 19 PCR negative. Patient had elevated CRP, LDH, and troponin on presentation. Seen and evaluated by infectious disease and pulmonology. Started on broad-spectrum antibiotic with IV cefepime. Hydroxychloroquine and steroid per infectious disease to finish 4 days course. We will finish antibiotic course with Avelox 400 mg daily for 7 days. No evidence of hypoxia. 2. Diffuse large B-cell lymphoma on chemotherapy, oncology following 3. Anemia: Most likely chemo-induced 4. Chronic atrial fibrillation on anticoagulation with Rivaroxaban 5. Obstructive sleep apnea 6. Troponin elevation: Most likely non-thrombotic troponin leak Patient will be discharged home in a stable condition. For further details about this hospitalization please refer to the electronic chart. Patient Condition at Discharge: Fair Plan - Discharge Summary Discharge Rx Participant: No New Discharge Prescriptions: New predniSONE [Deltasone] 40 mg PO DAILY #4 tab Hydroxychloroquine Sulfate [Plaquenil] 200 mg PO BID #4 tab Moxifloxacin HCl [Avelox] 400 mg PO DAILY #7 tablet Continue Rivaroxaban [Xarelto] 20 mg PO AC-SUPPER Allopurinol [Zyloprim] 300 mg PO DAILY Pantoprazole [Protonix] 40 mg PO HS predniSONE 100 mg PO DIRECTED Ondansetron [Zofran] 4 mg PO Q8HR PRN PRN Reason: Nausea Discharge Medication List Rivaroxaban [Xarelto] 20 mg PO AC-SUPPER 08/24/19 [History] Allopurinol [Zyloprim] 300 mg PO DAILY 11/01/19 [History] Pantoprazole [Protonix] 40 mg PO HS 11/01/19 [History] Ondansetron [Zofran] 4 mg PO Q8HR PRN 11/20/19 [History] predniSONE 100 mg PO DIRECTED 11/20/19 [History] Hydroxychloroquine Sulfate [Plaquenil] 200 mg PO BID #4 tab 01/12/20 [Rx] Moxifloxacin HCl [Avelox] 400 mg PO DAILY #7 tablet 01/12/20 [Rx] predniSONE [Deltasone] 40 mg PO DAILY #4 tab 01/12/20 [Rx] Follow up Appointment(s)/Referral(s): Saeed Spaulding MD [Primary Care Provider] - 3 Days Jennifer Olivo MD [STAFF PHYSICIAN] - 01/18/20 9:00 am (This is chemo appt. IT chemo is sched for 01/16. Pt will be called with reminder) Discharge Disposition: HOME SELF-CARE
--- NOTE | 2020-01-12 13:10 | P.PN ---
Subjective Progress Note Date: 01/12/20 Principal diagnosis: Suspected CoVID 19 pneumonitis with fever and shortness of breath The patient is seen today 01/12/2020 in follow-up on the regular medical floor. He is awake and alert in no acute distress. His breathing is nearly back to his baseline. Worsening shortness of breath, cough or congestion. He is maintaining O2 saturations in the 90s on room air. He's been afebrile. Hemodynamically stable. Blood and sputum cultures revealed no growth. White count 6.2. Hemoglobin 9.8. Glucose 133. Ferritin 479. C-reactive protein 32. D-dimer 0.55. He remains on Plaquenil, prednisone, Xarelto. Objective - Vital Signs Vital signs: Vital Signs Temp 98 F 01/12/20 07:00 Pulse 64 01/12/20 07:00 Resp 16 01/12/20 07:00 BP 116/81 01/12/20 07:00 Pulse Ox 93 L 01/12/20 07:00 Intake & Output 01/11/20 01/12/20 01/12/20 18:59 06:59 18:59 Intake Total 892 100 Balance 892 100 Intake: Intake, IV Titration 100 Amount Cefepime 1 gm In Sodium 100 Chloride 0.9% 50 ml @ 100 mls/hr IVPB Q12HR [facility] Rx #:[id number] Oral 892 Other: Voiding Method Toilet # Voids 1 - Exam GENERAL EXAM: Alert, very pleasant, 74-year-old white male, on room air, with a pulse ox of 93% comfortable in no apparent distress. HEAD: Normocephalic/atraumatic. EYES: Normal reaction of pupils, equal size. Conjunctiva pink, sclera white. NOSE: Clear with pink turbinates. THROAT: No erythema or exudates. NECK: No masses, no JVD, no thyroid enlargement, no adenopathy. CHEST: No chest wall deformity. Symmetrical expansion. LUNGS: Equal air entry with no crackles, wheeze, rhonchi or dullness. CVS: Regular rate and rhythm, normal S1 and S2, no gallops, no murmurs, no rubs ABDOMEN: Soft, nontender. No hepatosplenomegaly, normal bowel sounds, no guarding or rigidity. EXTREMITIES: No clubbing, no edema, no cyanosis, 2+ pulses and upper and lower extremities. MUSCULOSKELETAL: Muscle strength and tone normal. SPINE: No scoliosis or deformity SKIN: No rashes CENTRAL NERVOUS SYSTEM: No focal deficits, tone is normal in all 4 extremities. PSYCHIATRIC: Alert and oriented -3. Appropriate affect. Intact judgment and insight. - Labs CBC & Chem 7: 01/12/20 06:53 01/12/20 06:53 Labs: Abnormal Lab Results - Last 24 Hours (Table) 01/12/20 01/12/20 01/12/20 Range/Units 06:53 06:53 06:53 RBC 2.84 L (4.30-5.90) m/uL Hgb 9.8 L (13.0-17.5) gm/dL Hct 30.1 L (39.0-53.0) % MCV 106.0 H (80.0-100.0) fL Glucose 133 H (74-99) mg/dL Ferritin 479.6 H (22.0-322.0) ng/mL Creatine Kinase 33 L (55-170) U/L C-Reactive Protein 32.5 H (<10.0) mg/L Microbiology - Last 24 Hours (Table) 01/08/20 21:38 Blood Culture - Preliminary Blood No Growth after 72 hours 01/10/20 08:30 Gram Stain - Final Sputum Sputum Culture - Final Assessment and Plan Assessment: #1. Fever, shortness of breath, cough, bilateral groundglass opacities, highly suspicious for COVID 19 pneumonitis, despite COVID 19 PCR being negative #2. Elevated troponin, CRP, ferritin and LDH related to suspected COVID 19 infection #3. Immunocompromised host related to his history of diffuse large B-cell lymphoma and ongoing chemotherapy #4. History of chronic atrial flutter status post ablation #5. History of degenerative joint disease #6. History of sleep apnea syndrome #7. Prior history of pericarditis #8. Chronic low back pain #9. Status post 4 rounds of R-CHOP as well as intrathecal methotrexate #10. Diffuse large B-cell lymphoma Plan: The patient was seen and evaluated by Dr. Solorio Improved from the pulmonary standpoint Plan is for discharge home today Complete course of Plaquenil Complete a prednisone taper Follow-up in the office in 1-2 weeks' time I, the cosigning physician, performed a history & physical examination of the patient. Lungs sounds are clear. Maintaining good O2 saturations in the 90s on room air. I discussed the assessment and plan of care with my nurse practitioner, Brooklynn Nuno. I attest to the above note as dictated by her.
--- NOTE | 2020-01-12 14:22 | PN ---
PROGRESS NOTE DATE OF SERVICE: 01/12/2020 REASON FOR FOLLOWUP: Pneumonia. INTERVAL HISTORY: The patient is currently afebrile. The patient overall is feeling better. Breathing comfortably. The patient denies having any chest pain. Occasional cough. No abdominal pain and no diarrhea. PHYSICAL EXAMINATION: Blood pressure is 115/81 with a pulse of 64, temperature 98, he is 93% on room air. General description is an elderly male, lying in bed in no distress. RESPIRATORY SYSTEM: Unlabored breathing, clear to auscultation anteriorly. HEART: S1, S2. Regular rate and rhythm. ABDOMEN: Soft, no tenderness. LABS: Hemoglobin 9.8, white count 6.2, BUN of 15, creatinine 0.72. Blood culture has been negative. Sputum is negative. DIAGNOSTIC IMPRESSION AND PLAN: Patient with admission to the hospital with a fever, shortness of breath and cough with diagnosis of pneumonia x-ray, did not show any worsening. The patient has clinically improved. Finish therapy with oral Avelox 400 for a week and close outpatient followup. Discussed with the admitting physician working on discharge. MMODL / IJN: [id number] /
--- NOTE | 2020-01-17 08:24 | CDI ---
Documentation Clarification Form Date: 01/17/2020 07:41:46 AM From: Komal Miguel RN, CCDS Admit Date: 01/08/2020 11:14:00 PM Patient Name: Marcel Klein Visit Number: [id number] Discharge Date: 01/12/2020 01:34:00 PM ATTENTION: The Clinical Documentation Specialists (CDI) and [facility] Coding Staff appreciate your assistance in clarifying documentation. Please respond to the clarification below the line at the bottom and electronically sign. The CDI & [facility] Coding staff will review the response and follow-up if needed. Please note: Queries are made part of the Legal Health Record. If you have any questions, please contact the author of this message via ITS. Dr. Ortiz Patient has documented COVID-19 noted as rule out or other similar terminology such as suspected, probable, likely, etc. Only confirmed or presumptive (confirmed local or state lab findings) COVID-19 diagnoses can be reported as such. Please clarify the status of this condition in your discharge summary. The COVID-19 test obtained on 01/07 was reported as Negative on 01/07. Patient history/risk factors: B-cell lymphoma with chemotherapy 3 weeks ago, hx of pneumonia Clinical Indicators Patient reported fevers and generalized weakness having last chemo 3 weeks ago. 01/08 Pulmonary Consult: Fever, shortness of breath, and cough, rule out COVID-19 infection. The patient is a perfect setup given his symptoms, and the fact that he is immunocompromised given his diagnosis of diffuse large B-cell lymphoma and ongoing chemotherapy.COVID-19 testing though was negative. This may be either true negative or a false negative." 01/10 Pulmonary Progress note: The patient has suspected COVID-19 pneumonia. ASSESSMENT: Suspected COVID-19 pneumonitis, even though his rapid nasopharyngeal swab was negative. Fever, cough and shortness of breath, all consistent with acute COVID-19 pneumonitis. Elevated inflammatory markers secondary to COVID-19 infection. 01/11 Pulmonary Progress Note: Suspected Covid 19 pneumonitis with fever and shortness of breath Assessment: Fever, shortness of breath, cough, bilateral groundglass opacities, highly suspicious for COVID 19 pneumonitis, despite COVID 19 PCR being negative Elevated troponin, CRP, ferritin and LDH related to suspected COVID 19 infection 01/11 D/C Summary: Bilateral pneumonia: See on CT angiogram of the chest. CT was negative for PE. Very high clinical suspicion for Covid 19. Covid 19 PCR negative. Patient Had elevated CRP, LDH, and troponin on presentation. Seen and evaluated by infectious disease and pulmonology. Started on broad-spectrum antibiotic with IV cefepime. Hydroxychloroquine and steroid per infectious disease to finish 4 days course. We will finish antibiotic course with Avelox 400 mg daily for 7 days. 01/11 CXR:"Redemonstration of a left-sided pleural-based mass. In the bilateral known groundglass opacities seen on the CT of 01/09/2020." 01/08 CT Chest: Persistent but smaller in size left upper lobe pleural-based mass.Interval development of bilateral groundglass infiltrates which may reflect underlying pneumonia. Correlate clinically. Mediastinal and left hilar adenopathy." VS in ED Triage: T: 102.5, P: 92bpm, RR 18, B/P 128/76, Sat 94% on Room Air WBC WNL in a patient on chemotherapy 01/08 Ferritin 490.6 01/08 LDH: 853 01/07 & 01/09 CRP: 47.6/51.3 Treatment: Cefepime 2gm IVPB x1 followed by 1 gm IVPB q 12 hrs 01/08-01/09 Plaquenil 400 mg PO BID, tapered to 200 mg PO BID 01/09-01/11 01/07 2.4 L 0.9% NS IVF Bolus In order to capture the severity of condition, please clarify the COVID-19 status: False negative, treating for COVID-19 infection COVID-19 ruled out Other, please specify MTDD
== END 2020-01-12 13:34 | disposition home or self-care (01) | DRG 177 ==
LOC: EC 20:49 → 5NMEDONC 23:14 → 3SCARD 01-09 00:59 → 4SSUR 01-10 11:58
PROVIDERS: ADMIT Internal Medicine; ATTEND Internal Medicine
DX: U07.1 COVID-19 (principal); J12.89 Other viral pneumonia; C83.39 Diffuse large B-cell lymphoma, extranodal and solid organ sites; I48.20 Chronic atrial fibrillation, unspecified; D53.9 Nutritional anemia, unspecified; D64.81 Anemia due to antineoplastic chemotherapy; G47.33 Obstructive sleep apnea (adult) (pediatric); G89.29 Other chronic pain; I51.7 Cardiomegaly; M19.90 Unspecified osteoarthritis, unspecified site; M48.00 Spinal stenosis, site unspecified; T45.1X5A Adverse effect of antineoplastic and immunosuppressive drugs, initial encounter; M54.5 Low back pain; R79.89 Other specified abnormal findings of blood chemistry; E66.9 Obesity, unspecified; Z68.37 Body mass index [BMI] 37.0-37.9, adult; Z79.01 Long term (current) use of anticoagulants; Z79.899 Other long term (current) drug therapy; Z79.52 Long term (current) use of systemic steroids; Z98.41 Cataract extraction status, right eye; Z96.653 Presence of artificial knee joint, bilateral; Z96.1 Presence of intraocular lens; Z87.891 Personal history of nicotine dependence; Z87.01 Personal history of pneumonia (recurrent); Z86.010 Personal history of colon polyps; Z80.0 Family history of malignant neoplasm of digestive organs; Z80.1 Family history of malignant neoplasm of trachea, bronchus and lung
CPT/HCPCS: 36415; 71045; 71275; 80048; 80053; 81001; 82550; 82728; 83605; 83615; 83880; 84145; 84484; 85025; 85379; 85610; 85730; 86140; 87040; 87070; 87205; 87635; 93005; 94640; 96365; 96366; 96367; 99285

== ENCOUNTER 2020-01-17 08:11 | Day surgery (SDC) | payer MEDICARE ==
--- NOTE | 2020-01-17 11:33 | FL ---
EXAMINATION TYPE: FL guided lumbar puncture LP DATE OF EXAM: 01/17/2020 COMPARISON: NONE HISTORY: Request for intrathecal chemotherapy TECHNIQUE: Fluoroscopy. FINDINGS: Prior MRI reviewed. Maximal barrier technique was utilized. The skin overlying the L3 trans verse process was localized under fluoroscopy and the overlying skin prepped and draped. Lidocaine ed for local anesthesia. 20-gauge needle was advanced to the level of the thecal sac under fluoroscop ic guidance.. No return of cerebrospinal fluid, attempt and performed with a longer needle and a trac e of CSF fluid returned. A spot image verified needle placement. 2 intraoperative images, 6.23 minute s fluoroscopy time. One image submitted. The patient remained in stable condition, the needle was rem she. Hemostasis achieved. No immediate complication. IMPRESSION: Unsuccessful lumbar puncture likely secondary to spinal stenosis..
[2020-01-17 12:07] VITALS: TEMP 98.2
[2020-01-17 13:31] VITALS: RESP 16
[2020-01-17 15:48] VITALS: BP 111/63; PULSE 64
== END 2020-01-17 15:47 | disposition home or self-care (01) ==
LOC: RADPROMAIN 08:11 → 2SICU 11:02 → RADPROMAIN 15:47
PROVIDERS: ATTEND Internal Medicine Hematology & Oncology
DX: C83.39 Diffuse large B-cell lymphoma, extranodal and solid organ sites (principal); Z79.01 Long term (current) use of anticoagulants; Z11.59 Encounter for screening for other viral diseases
CPT/HCPCS: 87635; 62328; J2001

== ENCOUNTER → 2020-03-15 | Outpatient (CLI) | payer MEDICARE ==
--- NOTE | 2020-03-19 15:44 | PE ---
Nuclear medicine PET/CT HISTORY: Non-Hodgkin's, left lung, subsequent Patient received 10.3 mCi F-18 FDG intravenously in delayed scanning was performed from the skull bas e to the mid thighs. An attenuation correction, localization CT scan was also performed. Correlation to prior nuclear medicine PET/CT 12/08/2019, CT dated 01/09/2020 neck and chest: There is no evident cervical or supraclavicular adenopathy. Right-sided Port-A-Cath i s in place. Patient's mediastinal adenopathy is noted which has progressed compared to prior PET/CT b ut was noted on prior CT scan of the chest, no appreciable uptake. Patchy peripheral density in the l eft upper lobe is pleural-based and does not show significant uptake. There are coronary artery calci fications. There is no pleural or pericardial effusion. Nodular density in the right middle lobe has developed in measures approximately 16 mm on axial image 120, no significant uptake however. Bandlike areas of increased density are scattered within the lungs bilaterally, there is likely underlying in terstitial lung disease. ABDOMEN: No retroperitoneal adenopathy or adrenal mass. No evident lung mass or suspicious uptake. No ascites. There is no pelvic adenopathy or free fluid. Osseous structures are remarkable for postop change the right hip. The previous identified diffuse ma rrow activity has normalized. IMPRESSION: Mediastinal adenopathy has progressed compared to prior PET/CT, new right middle lobe bi g nodule without uptake
== END | disposition home or self-care (01) ==
LOC: RADPETMAIN 14:10
PROVIDERS: ATTEND Internal Medicine Hematology & Oncology
DX: C83.39 Diffuse large B-cell lymphoma, extranodal and solid organ sites (principal); R59.0 Localized enlarged lymph nodes; R91.1 Solitary pulmonary nodule
CPT/HCPCS: 78815; A9552

== ENCOUNTER 2020-06-14 06:11 | Day surgery (SDC) | payer MEDICARE ==
[~2020-06-14 06:11] MED LIST changes: +DEXAMETHASONE SOD PHOSPHATE 10 MG/ML 1 ML VIAL IV ONE; +HEPARIN SODIUM,PORCINE 5,000 UNIT/ML 1 ML VIAL SQ ONE; +LACTATED RINGERS 1,000 ML IV SCH; +LIDOCAINE 1% (10MG/ML) FOR IV START INTRADERMA PRN; -METHOTREXATE SODIUM (PF) 25 MG/ML 2 ML VIAL INTRATHECA ONE; +ONDANSETRON 4 MG/2 ML VIAL IVP ONE; +ceFAZolin 3 GM in SODIUM CHLORIDE 0.9% 100 ML IVPB ONE
[2020-06-14 06:58] LABS: Glucose,Whole Blood 127 mg/dL (75-99)
[2020-06-14] MEDS ORDERED: fentaNYL (PF) 50 MCG/ML 2 ML AMP ONE (07:48)
[2020-06-14] MEDS ORDERED: LIDOCAINE 1% INJ 10MG/ML (20 ML MDV) ONE (07:48)
[2020-06-14] MEDS ORDERED: diphenhydrAMINE 50 MG/ML 1 ML VIAL ONE (07:48)
[2020-06-14] MEDS ORDERED: PROPOFOL 10 MG/ML 20 ML VIAL IV ONE (07:48)
[2020-06-14] MEDS ORDERED: MIDAZOLAM 2 MG/2 ML VIAL ONE (07:48)
--- NOTE | 2020-06-14 07:48 | P.GSHP ---
History of Present Illness H&P Date: 06/14/20 Chief Complaint: Lymphoma 74-year-old male known to our service. Here today for Port-A-Cath removal. Patient recently completed treatment for non-Hodgkin's lymphoma. No issues with the port. Past Medical History Past Medical History: Atrial Flutter, Cancer, Diabetes Mellitus, Hypertension, Osteoarthritis (OA), Pneumonia, Sleep Apnea/CPAP/BIPAP Additional Past Medical History / Comment(s): LYMPHOMA. HX PERICARDITIS 1988, pneumonia 2013, Uses CPAP, LOWER BACK PAIN. History of Any Multi-Drug Resistant Organisms: None Reported Past Surgical History: Adenoidectomy, Cardiac Ablation, Joint Replacement, Orthopedic Surgery, Tonsillectomy Additional Past Surgical History / Comment(s): 01/17/15 Atrial flutter ablation. , KNEE ARTHROSCOPIES, NANCY Total KNEE REPLACE., NASAL SURG for fx repair, Colonoscopy w/ polypectomy-benign. Total Rt Hip. RIGHT CATARACT 10/31/19. Past Anesthesia/Blood Transfusion Reactions: No Reported Reaction Past Psychological History: No Psychological Hx Reported Additional Psychological History / Comment(s): . Smoking Status: Former smoker Past Alcohol Use History: Occasional Additional Past Alcohol Use History / Comment(s): Smoked cigarettes age 18 - 1988, SMOKED OCCASIONAL CIGARS & QUIT AUG 2019. DRINKS 1 TO 1 & 1/2 DRINKS PER DAY Past Drug Use History: None Reported - Past Family History Father Family Medical History: Cancer Additional Family Medical History / Comment(s): LUNG CANCER AND LIVER CANCER Medications and Allergies Home Medications Medication Instructions Recorded Confirmed Type Rivaroxaban [Xarelto] 20 mg PO HS 08/24/19 06/14/20 History Acetaminophen [Tylenol Extra 500 mg PO DIRECTED PRN 06/13/20 06/14/20 History Strength] Metoprolol Tartrate [Lopressor] 25 mg PO DAILY 06/13/20 06/14/20 History Rosuvastatin [Crestor] 10 mg PO DAILY 06/13/20 06/14/20 History metFORMIN HCL [Glucophage] 500 mg PO DAILY 06/13/20 06/14/20 History Allergies Allergy/AdvReac Type Severity Reaction Status Date / Time No Known Allergies Allergy Verified 06/14/20 06:48 Surgical - Exam Vital Signs Temp Pulse Resp BP Pulse Ox 97 F L 89 18 149/73 96 06/14/20 07:04 06/14/20 07:04 06/14/20 07:04 06/14/20 07:04 06/14/20 07:04 Physical exam: General: Well-developed, well-nourished HEENT: Normocephalic, sclerae nonicteric Abdomen: Nontender, nondistended Extremities: No edema Neuro: Alert and oriented Results - Labs Abnormal Lab Results - Last 24 Hours (Table) 06/14/20 Range/Units 06:55 POC Glucose (mg/dL) 127 H (75-99) mg/dL Assessment and Plan (1) Lymphoma Narrative/Plan: Will proceed with Port-A-Cath removal Current Visit: No Status: Acute Code(s): C85.90 - NON-HODGKIN LYMPHOMA, UNSPECIFIED, UNSPECIFIED SITE SNOMED Code(s): 629579861
[2020-06-14] MEDS ORDERED: LIDOCAINE 1% INJ 10MG/ML (20 ML MDV) SQ ONE ×2 (08:08)
[2020-06-14] MEDS ORDERED: HYDROcodone/APAP 5-325MG 1 EACH TAB PO PRN (08:31)
[2020-06-14] MEDS ORDERED: NALOXONE 0.4 MG/ML 1 ML VIAL IV PRN (08:31)
[2020-06-14 08:33] VITALS: TEMP 98.8
--- NOTE | 2020-06-14 08:33 | P.OP ---
Date of Procedure: 06/14/20 Procedure(s) Performed: PREOPERATIVE DIAGNOSIS: Lymphoma POSTOPERATIVE DIAGNOSIS: Same PROCEDURE: Port-A-Cath removal SURGEON: Marilee EBL: Minimal ANESTHESIA: Sedation COMPLICATIONS: None OPERATIVE PROCEDURE: Patient was placed in the supine position. The patient was sedated per anesthesia that time. The chest was prepped and draped in the usual sterile fashion. The skin was localized with Marcaine solution. The previous incision was re-incised using a scalpel. The port was easily excised using acco mmodation of blunt dissection sharp dissection and electrocautery. The subcutaneous tissues were reapproximated using 3-0 Vicryl sutures. The skin was reapproximated using 4-0 Monocryl sutures. Skin glue was then applied. DISPOSITION: Stable to recovery room
[2020-06-14 08:36] VITALS: RESP 16
[2020-06-14 08:40] LABS: Glucose,Whole Blood 142 mg/dL (75-99)
[2020-06-14 09:17] VITALS: BP 163/89; PULSE 85
== END 2020-06-14 09:39 | disposition home or self-care (01) ==
LOC: OR 06:11
PROVIDERS: ATTEND Surgery
DX: Z45.2 Encounter for adjustment and management of vascular access device (principal); C85.90 Non-Hodgkin lymphoma, unspecified, unspecified site; I48.92 Unspecified atrial flutter; E11.9 Type 2 diabetes mellitus without complications; I10 Essential (primary) hypertension; M19.90 Unspecified osteoarthritis, unspecified site; Z87.01 Personal history of pneumonia (recurrent); G47.30 Sleep apnea, unspecified; Z99.89 Dependence on other enabling machines and devices; I31.9 Disease of pericardium, unspecified; Z87.891 Personal history of nicotine dependence; Z80.1 Family history of malignant neoplasm of trachea, bronchus and lung; Z80.0 Family history of malignant neoplasm of digestive organs; Z96.653 Presence of artificial knee joint, bilateral; Z96.641 Presence of right artificial hip joint; Z98.41 Cataract extraction status, right eye; Z98.890 Other specified postprocedural states; Z79.01 Long term (current) use of anticoagulants; Z79.84 Long term (current) use of oral hypoglycemic drugs; Z79.899 Other long term (current) drug therapy
CPT/HCPCS: 36590; J2250; J1200; J1644; J1100; J0690; J2405; J2001; J3010; J2704

== ENCOUNTER → 2020-11-22 | Outpatient (CLI) | payer MEDICARE ==
--- NOTE | 2020-11-26 06:28 | PE ---
EXAMINATION TYPE: PET CT fusion skull to thigh DATE OF EXAM: 11/22/2020 COMPARISON: Prior PET/CT March 15, 2020 and older studies HISTORY: Lymphoma the lungs diagnosed September 15, 2019, completed chemotherapy February 14, 2020 TECHNIQUE: Following the intravenous administration of 9.12 mCi of F-18 FDG, whole body images are p erformed from the skull base to the midthigh. Images are reviewed on the computer in the coronal, ax ial, and sagittal planes. Reconstructed rotating images are created on independent workstation and r eviewed on the computer. A localization and attenuation correction CT is performed in conjunction w ith the PET scan. Blood glucose level equals 128. SCAN: Subsequent Scan FINDINGS: Mean SUV mediastinum: 1.24 Mean SUV liver: 2.85 SKULL BASE AND NECK: No new areas of abnormal hypermetabolic uptake. CHEST, MEDIASTINUM, AND HILAR REGION: Mediastinal lymph nodes diminished in size from most recent roverto dy and remain ametabolic. There is emphysematous and pulmonary fibrotic change with persistent periph eral mass and/or consolidation in the anterolateral left upper to midlung. This remains a metabolic. No significant change from most recent CT. No new areas of abnormal hypermetabolic uptake. ABDOMEN AND PELVIS: Normal excretion. No new areas of suspicious hypermetabolic uptake. OSSEOUS STRUCTURES: No new areas of abnormal suspicious hypermetabolic uptake. OTHER CT: Mild eccentric mucosal thickening inferolateral right maxillary sinus. Moderate calcified p laque bilateral carotid bulb level. Mild cardiomegaly. Coronary artery calcification and/or stents. Small degree of bilateral subareolar gynecomastia. Metallic hardware from right hip arthroplasty causes streak artifact limiting evaluation of pelvic st ructures. Multilevel spurring in the spine. Interval removal of right sided Mediport catheter. Scatte red bilateral pelvic phleboliths. IMPRESSION: No new areas of abnormal hypermetabolic uptake to suggest active neoplastic recurrence.
== END | disposition home or self-care (01) ==
LOC: RADPETMAIN 10:30
PROVIDERS: ATTEND Internal Medicine Hematology & Oncology
DX: C83.38 Diffuse large B-cell lymphoma, lymph nodes of multiple sites (principal); Z85.72 Personal history of non-Hodgkin lymphomas
CPT/HCPCS: 78815; A9552

== ENCOUNTER → 2021-05-30 | Outpatient (CLI) | payer MEDICARE ==
--- NOTE | 2021-05-30 12:22 | PE ---
EXAMINATION TYPE: PET CT fusion skull to thigh DATE OF EXAM: 05/30/2021 COMPARISON: Prior PET/CT November 22, 2020 and older studies. HISTORY: Diffuse large B-cell lymphoma progress study. Originated in lungs August 2019 completed chemotherapy February 2020. TECHNIQUE: Following the intravenous administration of 10.07 mCi of F-18 FDG, whole body images are performed from the skull base to the midthigh. Images are reviewed on the computer in the coronal, a xial, and sagittal planes. Reconstructed rotating images are created on independent workstation and reviewed on the computer. A localization and attenuation correction CT is performed in conjunction with the PET scan. Blood glucose level equals 149. SCAN: Subsequent Scan FINDINGS: FINDINGS: Mean SUV mediastinum: 0.99 Mean SUV liver: 2.66 SKULL BASE AND NECK: No new areas of abnormal hypermetabolic uptake. CHEST, MEDIASTINUM, AND HILAR REGION: Mediastinal lymph nodes more prominent in size from most recent study but remain ametabolic. There is persistent low lung volumes with at least moderate emphysemato us and pulmonary fibrotic change with persistent peripheral mass like thickening and/or consolidation in the anterolateral left upper to midlung. This remains ametabolic. No significant change from most recent CT. No new areas of abnormal hypermetabolic uptake. ABDOMEN AND PELVIS: Normal excretion. Mild nonspecific distal bowel uptake diffusely somewhat more pr ominent than prior incidentally noted. No new areas of suspicious hypermetabolic uptake. OSSEOUS STRUCTURES: No new areas of abnormal suspicious hypermetabolic uptake. OTHER CT: Moderate to severe calcified plaque bilateral carotid bulb level right greater than left re demonstrated. Mild cardiomegaly. Coronary artery calcification and/or stents redemonstrated. Bilateral subareolar g ynecomastia again seen. Liver now diffusely low dense consistent with fatty infiltration. Metallic hardware from right hip ar throplasty causes streak artifact limiting evaluation of pelvic structures. Multilevel spurring in th e spine. Interval removal of right sided Mediport catheter. Scattered bilateral pelvic phleboliths. L ower lumbar spine facet arthropathy. IMPRESSION: No new areas of abnormal hypermetabolic uptake to suggest active neoplastic recurrence. P osttreatment changes to left lung redemonstrated and stable.
== END | disposition home or self-care (01) ==
LOC: RADPETMAIN 08:58
PROVIDERS: ATTEND Internal Medicine Hematology & Oncology
DX: C83.32 Diffuse large B-cell lymphoma, intrathoracic lymph nodes (principal); J43.9 Emphysema, unspecified; J84.10 Pulmonary fibrosis, unspecified; Z85.118 Personal history of other malignant neoplasm of bronchus and lung
CPT/HCPCS: 78815; A9552

== ENCOUNTER 2022-01-02 08:46 | Day surgery (SDC) | payer MEDICARE ==
[2021-12-31 16:00] VITALS: BMI 33.6
[~2022-01-02 08:46] MED LIST changes: -DEXAMETHASONE SOD PHOSPHATE 10 MG/ML 1 ML VIAL IV ONE; -HEPARIN SODIUM,PORCINE 5,000 UNIT/ML 1 ML VIAL SQ ONE; -LIDOCAINE 1% (10MG/ML) FOR IV START INTRADERMA PRN; -ONDANSETRON 4 MG/2 ML VIAL IVP ONE; -ceFAZolin 3 GM in SODIUM CHLORIDE 0.9% 100 ML IVPB ONE
[2022-01-02 09:06] VITALS: TEMP 97.3
[2022-01-02 09:19] LABS: Glucose,Whole Blood 131 mg/dL (75-99)
[2022-01-02] MEDS ORDERED: PROPOFOL 10 MG/ML 20 ML VIAL IV ONE (09:44)
--- NOTE | 2022-01-02 10:15 | P.PCN ---
Date of Procedure: 01/02/22 Procedure(s) Performed: BRIEF HISTORY: Patient is a 76-year-old pleasant white male scheduled for an elective colonoscopy as a part of screening for colorectal neoplasia. PROCEDURE PERFORMED: Colonoscopy with snare polypectomy. PREOPERATIVE DIAGNOSIS: Screening for colon cancer. IV sedation per Anesthesia. PROCEDURE: After informed consent was obtained, the patient, was brought into the endoscopy unit. IV sedation was administered by Anesthesia under continuous monitoring. Digital rectal examination was normal. Initially the Olympus CF-160 flexible video colonoscope was then inserted in the rectum, gradually advanced into the cecum without any difficulty. Careful examination was performed as the scope was gradually being withdrawn. Ileocecal valve and the appendiceal orifice were visualized and appeared normal. Prep was excellent. In the base of cecum there was a 2 cm linear broad-based polyp removed by piecemeal snare polypectomy. Mucosa of the cecum, ascending colon, transverse colon, descending colon, sigmoid colon, and rectum appeared normal. Retroflexion was performed in the rectum and no lesions were seen. The patient tolerated the procedure well. IMPRESSION: 2 cm linear broad-based cecal polyp status post polypectomy Rest of the colon appeared normal RECOMMENDATIONS: Findings of this examination were discussed with the patient well as her family. He was advised to follow with the biopsy results. If the biopsies adenoma he can have a repeat colonoscopy in 3 years..
[2022-01-02 10:35] VITALS: BP 109/69; PULSE 69; RESP 16
== END 2022-01-02 10:48 | disposition home or self-care (01) ==
LOC: ORWHC2ENDO 08:46
PROVIDERS: ATTEND Internal Medicine Gastroenterology
DX: Z12.11 Encounter for screening for malignant neoplasm of colon (principal); D12.0 Benign neoplasm of cecum; I48.92 Unspecified atrial flutter; E78.5 Hyperlipidemia, unspecified; G47.33 Obstructive sleep apnea (adult) (pediatric); E11.9 Type 2 diabetes mellitus without complications; Z87.09 Personal history of other diseases of the respiratory system; Z79.01 Long term (current) use of anticoagulants; Z79.899 Other long term (current) drug therapy; Z79.84 Long term (current) use of oral hypoglycemic drugs; Z90.89 Acquired absence of other organs; Z98.890 Other specified postprocedural states; Z96.653 Presence of artificial knee joint, bilateral; Z96.641 Presence of right artificial hip joint; Z98.42 Cataract extraction status, left eye; Z98.41 Cataract extraction status, right eye
CPT/HCPCS: 88305; 45385; J2704

== ENCOUNTER 2022-01-13 08:39 | Observation (INO) | payer MEDICARE ==
[2022-01-13] MEDS ORDERED: PANTOPRAZOLE 40 MG/10 ML VIAL IVP STA (08:54)
[2022-01-13] MEDS ORDERED: SODIUM CHLORIDE 0.9% 1,000 ML IV STA (08:54)
--- NOTE | 2022-01-13 08:59 | ED ---
General Adult HPI - General Chief complaint: GI Bleed Stated complaint: Blood In Stool Time Seen by Provider: 01/13/22 08:49 Source: patient, RN notes reviewed Mode of arrival: ambulatory Limitations: no limitations - History of Present Illness Initial comments: Patient is a pleasant 36-year-old male presenting to the emergency department with concern for rectal bleeding. Onset of symptoms was yesterday. Patient had 2 episodes. Patient does feel a little bit fatigued today. Patient has some mild exertional dyspnea however that is chronic and unchanged. Patient did have colonoscopy done just 10 days ago. Patient did have a single polyp removed. Patient is on Xarelto secondary to history of atrial fibrillation. - Related Data Home Medications Medication Instructions Recorded Confirmed Rivaroxaban [Xarelto] 20 mg PO HS 08/24/19 01/13/22 Rosuvastatin [Crestor] 10 mg PO DAILY 06/13/20 01/13/22 metFORMIN HCL [Glucophage] 500 mg PO DAILY 06/13/20 01/13/22 Furosemide [Lasix] 40 mg PO DAILY 12/31/21 01/13/22 Nintedanib Esylate [Ofev] 150 mg PO BID 12/31/21 01/13/22 Spironolactone 25 mg PO DAILY 12/31/21 01/13/22 Metoprolol Succinate (ER) [Toprol 100 mg PO DAILY 01/13/22 01/13/22 Xl] Allergies Allergy/AdvReac Type Severity Reaction Status Date / Time No Known Allergies Allergy Verified 01/13/22 08:46 Review of Systems ROS Statement: Those systems with pertinent positive or pertinent negative responses have been documented in the HPI. ROS Other: All systems not noted in ROS Statement are negative. Constitutional: Denies: fever Eyes: Denies: eye pain ENT: Denies: ear pain Respiratory: Reports: as per HPI. Denies: cough Cardiovascular: Denies: chest pain Endocrine: Reports: fatigue Gastrointestinal: Reports: hematochezia. Denies: abdominal pain Genitourinary: Denies: dysuria Musculoskeletal: Denies: back pain Skin: Denies: rash Neurological: Denies: headache Past Medical History Past Medical History: Atrial Flutter, Cancer, Diabetes Mellitus, Hypertension, Osteoarthritis (OA), Sleep Apnea/CPAP/BIPAP Additional Past Medical History / Comment(s): LYMPHOMA. HX PERICARDITIS 1988, Uses CPAP, LOWER BACK PAIN, PULMONARY FIBROSIS History of Any Multi-Drug Resistant Organisms: None Reported Past Surgical History: Adenoidectomy, Cardiac Ablation, Joint Replacement, Orthopedic Surgery, Tonsillectomy Additional Past Surgical History / Comment(s): 01/17/15 Atrial flutter ablation. , KNEE ARTHROSCOPIES, NANCY Total KNEE REPLACE., NASAL SURG for fx repair, C olonoscopy w/ polypectomy-benign. Total Rt Hip. BILATERAL CATARACT 10/31/19. Past Anesthesia/Blood Transfusion Reactions: No Reported Reaction Past Psychological History: No Psychological Hx Reported Smoking Status: Former smoker Past Alcohol Use History: Occasional Past Drug Use History: None Reported - Past Family History Father Family Medical History: Cancer Additional Family Medical History / Comment(s): LUNG CANCER AND LIVER CANCER Mother Family Medical History: Diabetes Mellitus General Exam Limitations: no limitations General appearance: alert, in no apparent distress Head exam: Present: normocephalic Eye exam: Present: normal appearance Neck exam: Present: normal inspection Respiratory exam: Present: normal lung sounds bilaterally Cardiovascular Exam: Present: irregular rhythm GI/Abdominal exam: Present: soft, normal bowel sounds. Absent: distended, tenderness, guarding, rebound, rigid, pulsatile mass Rectal exam: Present: bloody stool Extremities exam: Present: normal inspection Neurological exam: Present: alert Psychiatric exam: Present: normal affect, normal mood Skin exam: Present: normal color Course Vital Signs 01/13/22 08:40 Temperature 97.6 F Pulse Rate 61 Respiratory 18 Rate Blood Pressure 124/71 O2 Sat by Pulse 98 Oximetry EKG Findings - EKG Comments: EKG Findings:: A. fib with rate of 58. QRS 102. QT 436. QTc 433. Normal axis. Low QRS voltage. Septal Q waves. Nonspecific ST-T. Medical Decision Making - Medical Decision Making Patient reevaluated and updated. Case discussed with Dr. Cruz, who will admit covering Dr. freire on - Lab Data Result diagrams: 01/13/22 09:36 01/13/22 09:36 Lab Results 01/13/22 01/13/22 01/13/22 Range/Units 09:36 09:36 09:36 WBC 6.1 (3.8-10.6) k/uL RBC 3.00 L (4.30-5.90) m/uL Hgb 10.4 L (13.0-17.5) gm/dL Hct 32.2 L (39.0-53.0) % MCV 107.3 H (80.0-100.0) fL MCH 34.7 (25.0-35.0) pg MCHC 32.4 (31.0-37.0) g/dL RDW 13.6 (11.5-15.5) % Plt Count 208 (150-450) k/uL MPV 7.8 Neutrophils % 63 % Lymphocytes % 26 % Monocytes % 7 % Eosinophils % 1 % Basophils % 1 % Neutrophils # 3.8 (1.3-7.7) k/uL Lymphocytes # 1.6 (1.0-4.8) k/uL Monocytes # 0.4 (0-1.0) k/uL Eosinophils # 0.1 (0-0.7) k/uL Basophils # 0.0 (0-0.2) k/uL Macrocytosis Moderate PT 10.9 (9.0-12.0) sec INR 1.0 (<1.2) APTT 23.5 (22.0-30.0) sec Sodium 135 L (137-145) mmol/L Potassium 4.2 (3.5-5.1) mmol/L Chloride 103 (98-107) mmol/L Carbon Dioxide 24 (22-30) mmol/L Anion Gap 8 mmol/L BUN 21 H (9-20) mg/dL Creatinine 1.03 (0.66-1.25) mg/dL Est GFR (CKD-EPI)AfAm 83 (>60 ml/min/1.73 sqM) Est GFR (CKD-EPI)NonAf 72 (>60 ml/min/1.73 sqM) Glucose 145 H (74-99) mg/dL Calcium 8.7 (8.4-10.2) mg/dL Total Bilirubin 0.7 (0.2-1.3) mg/dL AST 25 (17-59) U/L ALT 18 (4-49) U/L Alkaline Phosphatase 82 (38-126) U/L Total Protein 6.9 (6.3-8.2) g/dL Albumin 4.0 (3.5-5.0) g/dL Disposition Clinical Impression: Lower gastrointestinal hemorrhage Disposition: ADMITTED IP TO THIS HOSP Is patient prescribed a controlled substance at d/c from ED?: No Referrals: Lana Shaver MD [Primary Care Provider] - 1-2 days Time of Disposition: 10:15
[2022-01-13 09:45] LABS: Basophils % (A) 1 %; Eosinophils # (A) 0.1 k/uL (0-0.7); Eosinophils % (A) 1 %; HCT 32.2 % (39.0-53.0); HGB 10.4 gm/dL (13.0-17.5); Lymphocytes # (A) 1.6 k/uL (1.0-4.8); Lymphocytes % (A) 26 %; MCH 34.7 pg (25.0-35.0); MCHC 32.4 g/dL (31.0-37.0); MCV 107.3 fL (80.0-100.0); Macrocytosis Moderate; Mean Platelet Volume 7.8; Monocytes # (A) 0.4 k/uL (0-1.0); Monocytes % (A) 7 %; Neutrophils # (A) 3.8 k/uL (1.3-7.7); Neutrophils % (A) 63 %; Platelet Count 208 k/uL (150-450); RDW 13.6 % (11.5-15.5); WBC 6.1 k/uL (3.8-10.6)
[2022-01-13 09:54] LABS: Partial Thromboplastin Time 23.5 sec (22.0-30.0); Prothrombin Time 10.9 sec (9.0-12.0)
[2022-01-13 09:58] LABS: Calcium 8.7 mg/dL (8.4-10.2); Potassium 4.2 mmol/L (3.5-5.1); Total Bilirubin 0.7 mg/dL (0.2-1.3); Total Protein 6.9 g/dL (6.3-8.2)
[2022-01-13] MEDS ORDERED: NALOXONE 0.4 MG/ML 1 ML VIAL IV PRN (10:15)
[2022-01-13] MEDS ORDERED: SODIUM CHLORIDE 0.9% 1,000 ML IV SCH (10:15)
--- NOTE | 2022-01-13 10:41 | CT ---
EXAMINATION TYPE: CT abdomen pelvis w con DATE OF EXAM: 01/13/2022 COMPARISON: CT dated 10/02/2021 HISTORY: blood in stool recent colonoscopy CT DLP: 1740.5 mGycm Automated exposure control for dose reduction was used. TECHNIQUE: Helical acquisition of images was performed from the lung bases through the pelvis. CONTRAST: Performed without Oral Contrast and with IV Contrast, patient injected with 100 mL of Isovue 300. FINDINGS: LUNG BASES: Bilateral basal pulmonary fibrotic changes and peripheral reticulations. Coronary arteria l calcifications. LIVER/GB: Tiny right hepatic lobe cyst, appreciated previously. Unremarkable gallbladder. PANCREAS: No significant abnormality is seen. SPLEEN: No significant abnormality is seen. ADRENALS: No significant abnormality is seen. KIDNEYS: Bilateral perinephric fat stranding and reactive fluid, nonspecific. Unremarkable kidneys ot herwise. FREE AIR: No free air is visualized. RETROPERITONEAL ADENOPATHY: None visualized REPRODUCTIVE ORGANS: Obscured by artifacts from right hip prosthesis. URINARY BLADDER: Partially obscured and grossly unremarkable. PELVIC ADENOPATHY: No pathologically enlarged pelvic lymph nodes. OSSEOUS STRUCTURES: Right total hip arthroplasty causing beam hardening artifacts on the adjacent st ructures. Diffuse osteopenia. Degenerative changes of the left hip joint, sacroiliac joints, lower th oracic and lumbar spine. BOWEL: Unremarkable nondistended stomach, duodenum and small bowel. Moderate fecal loading of the co nubia. No gross colonic mass however a small lesion cannot be excluded. No gross signs of acute colitis . No evidence of acute appendicitis. OTHER: Scattered arterial atherosclerotic calcification with infrarenal abdominal aortic aneurysm jose suring up to 3.3 cm. No sizable ascites. Small fat-containing right inguinal hernia with tiny fat-con taining umbilical hernia. IMPRESSION: Bilateral perinephric fat stranding and reactive fluid, nonspecific. Subtle underlying acute inflamma tory/infectious process of the kidneys cannot be excluded, please correlate clinically and with urina lysis results. Fecal loading of the colon. No gross signs of acute colitis or gross colonic mass however a small les ion cannot be excluded, please correlate with the recent colonoscopy results. Other incidental findin gs as described above.
[2022-01-13 11:09] LABS: Appearance,Urine Clear (Clear); Bilirubin,Urine Negative (Negative); Blood,Urine Negative (Negative); Color,Urine Colorless; Glucose,Urine (UA) Negative (Negative); Ketones,Urine Negative (Negative); Leukocyte Esterase,Urine Negative (Negative); Nitrite,Urine Negative (Negative); PH, Urine 6.5 (5.0-8.0); Protein,Urine Negative (Negative); Specific Gravity,Urine 1.008 (1.001-1.035); Urobilinogen,Urine <2.0 mg/dL (<2.0)
[2022-01-13] MEDS ORDERED: PEG 3350-NA SULF,BICARB,CL/KCL 4,000 ML BOTTLE PO ONE (12:39)
--- NOTE | 2022-01-13 12:55 | P.GSCN ---
History of Present Illness Consult date: 01/13/22 History of present illness: CHIEF COMPLAINT: GI bleed HISTORY OF PRESENT ILLNESS: This is a 76-year-old male who presented to the hospital with complaints of rectal bleeding. Symptoms started yesterday. Patient has been having bright red blood from the rectum. He had 2 episodes yesterday. Patient is on Xarelto at home for atrial fibrillation. He did report some shortness of breath. His last colonoscopy was on 01/02/2022 with a 2 cm linear broad-based cecal polyp status post polypectomy. Pathology showed tubular adenoma. Patient did have some hypotension. Hemoglobin on admission 10.4. Surgical service consulted in regards to lower GI bleed. PAST MEDICAL HISTORY: Atrial Flutter, Cancer, Diabetes Mellitus, Hypertension, Osteoarthritis (OA), Sleep Apnea/CPAP/BIPAP, lymphoma, pericarditis, pulmonary fibrosis PAST SURGICAL HISTORY: Atrial flutter ablation MEDICATIONS: See list. ALLERGIES: See list. SOCIAL HISTORY: No illicit drug use. REVIEW OF SYSTEMS: CONSTITUTIONAL: Denies fever or chills. HEENT: Denies blurred vision, vision changes, or eye pain. Denies hemoptysis CARDIOVASCULAR: Denies chest pain or pressure. RESPIRATORY: No shortness of breath. GASTROINTESTINAL: See HPI for pertinent findings HEMATOLOGIC: Denies bleeding disorders. GENITOURINARY: Denies any blood in urine or increased urinary frequency. SKIN: Denies pruitis. Denies rash. PHYSICAL EXAM: VITAL SIGNS: Reviewed GENERAL: Well-developed in no acute distress. HEENT: No sclera icterus. Extraocular movements grossly intact. Moist buccal mucosa. Head is atraumatic, normocephalic. No nasal drainage. ABDOMEN: Soft. Nondistended. Nontender NEUROLOGIC: Alert and oriented. Cranial nerves II through XII grossly intact. LABORATORY DATA: WBC 6.1 hemoglobin 10.4 platelets 208 INR 1.0 Sodium 135 potassium 4.2 creatinine 1.03 IMAGING: computed tomography scan bilateral perinephric fat stranding and reactive fluid nonspecific. Subtle underlying acute inflammatory infectious process of the kidneys cannot be excluded. Correlation with urinalysis. Fecal loading of the colon. No gross signs of acute colitis or gross colonic mass however small les ion cannot be excluded. Please correlate with recent colonoscopy results. Other incidental findings as described above. ASSESSMENT: 1. Acute lower GI bleed 2. Recent colonoscopy with cecal polypectomy PLAN: -Patient scheduled for EGD and colonoscopy tomorrow, 01/14/[address] waters -Start GoLYTELY prep today -Patient can have clear liquid diet now and then nothing by mouth after midnight -Continue to monitor hemoglobin -Continue to monitor for any signs or symptoms of bleeding -Continue to hold Xarelto Thank you for this consultation Physician Spray Gun Repairer note has been reviewed by physician. Signing provider agrees with the documented findings, assessment, and plan of care. Past Medical History Past Medical History: Atrial Fibrillation, Atrial Flutter, Cancer, Diabetes Mellitus, Hyperlipidemia, Hypertension, Osteoarthritis (OA), Pneumonia, Respiratory Disorder, Sleep Apnea/CPAP/BIPAP Additional Past Medical History / Comment(s): NIDDM type II, nonhodgkins lymphoma, 2019 L lung cancerous mass and received chemo, pulmonary fibrosis, SOB with activity, pneumonias, EARL with Cpap, 1988 pericarditis, chronic low back pain. History of Any Multi-Drug Resistant Organisms: None Reported Past Surgical History: Adenoidectomy, Cardiac Ablation, Joint Replacement, Orthopedic Surgery, Tonsillectomy Additional Past Surgical History / Comment(s): Colonoscopies/benign polypectomies in the past and recently on 01/02/22, cardiac ablation for aflutter, bronchoscopy, bilateral knee arthroscopies and total bilateral knee arthroplasties, total R hip arthroplasty, port a cath since removed, nasal fracture with surgery, bilateral cataract removals. Past Anesthesia/Blood Transfusion Reactions: No Reported Reaction Smoking Status: Former smoker - Past Family History Father Family Medical History: Cancer Additional Family Medical History / Comment(s): LUNG CANCER AND LIVER CANCER Mother Family Medical History: Diabetes Mellitus Medications and Allergies Home Medications Medication Instructions Recorded Confirmed Type Rivaroxaban [Xarelto] 20 mg PO HS 08/24/19 01/13/22 History Rosuvastatin [Crestor] 10 mg PO DAILY 06/13/20 01/13/22 History metFORMIN HCL [Glucophage] 500 mg PO DAILY 06/13/20 01/13/22 History Furosemide [Lasix] 40 mg PO DAILY 12/31/21 01/13/22 History Nintedanib Esylate [Ofev] 150 mg PO BID 12/31/21 01/13/22 History Spironolactone 25 mg PO DAILY 12/31/21 01/13/22 History Metoprolol Succinate (ER) [Toprol 100 mg PO DAILY 01/13/22 01/13/22 History Xl] Allergies Allergy/AdvReac Type Severity Reaction Status Date / Time No Known Allergies Allergy Verified 01/13/22 08:46 Surgical - Exam Vital Signs Temp Pulse Resp BP Pulse Ox 97.6 F 61 18 124/71 98 01/13/22 08:40 01/13/22 08:40 01/13/22 08:40 01/13/22 08:40 01/13/22 08:40 Results - Labs 01/13/22 09:36 01/13/22 09:36 Abnormal Lab Results - Last 24 Hours (Table) 01/13/22 01/13/22 Range/Units 09:36 09:36 RBC 3.00 L (4.30-5.90) m/uL Hgb 10.4 L (13.0-17.5) gm/dL Hct 32.2 L (39.0-53.0) % MCV 107.3 H (80.0-100.0) fL Sodium 135 L (137-145) mmol/L BUN 21 H (9-20) mg/dL Glucose 145 H (74-99) mg/dL Diabetes panel 01/13/22 Range/Units 09:36 Sodium 135 L (137-145) mmol/L Potassium 4.2 (3.5-5.1) mmol/L Chloride 103 (98-107) mmol/L Carbon Dioxide 24 (22-30) mmol/L BUN 21 H (9-20) mg/dL Creatinine 1.03 (0.66-1.25) mg/dL Glucose 145 H (74-99) mg/dL Calcium 8.7 (8.4-10.2) mg/dL AST 25 (17-59) U/L ALT 18 (4-49) U/L Alkaline Phosphatase 82 (38-126) U/L Total Protein 6.9 (6.3-8.2) g/dL Albumin 4.0 (3.5-5.0) g/dL Calcium panel 01/13/22 Range/Units 09:36 Calcium 8.7 (8.4-10.2) mg/dL Albumin 4.0 (3.5-5.0) g/dL Pituitary panel 01/13/22 Range/Units 09:36 Sodium 135 L (137-145) mmol/L Potassium 4.2 (3.5-5.1) mmol/L Chloride 103 (98-107) mmol/L Carbon Dioxide 24 (22-30) mmol/L BUN 21 H (9-20) mg/dL Creatinine 1.03 (0.66-1.25) mg/dL Glucose 145 H (74-99) mg/dL Calcium 8.7 (8.4-10.2) mg/dL Adrenal panel 01/13/22 Range/Units 09:36 Sodium 135 L (137-145) mmol/L Potassium 4.2 (3.5-5.1) mmol/L Chloride 103 (98-107) mmol/L Carbon Dioxide 24 (22-30) mmol/L BUN 21 H (9-20) mg/dL Creatinine 1.03 (0.66-1.25) mg/dL Glucose 145 H (74-99) mg/dL Calcium 8.7 (8.4-10.2) mg/dL Total Bilirubin 0.7 (0.2-1.3) mg/dL AST 25 (17-59) U/L ALT 18 (4-49) U/L Alkaline Phosphatase 82 (38-126) U/L Total Protein 6.9 (6.3-8.2) g/dL Albumin 4.0 (3.5-5.0) g/dL
--- NOTE | 2022-01-13 14:03 | P.HPIM ---
History of Present Illness H&P Date: 01/13/22 Chief Complaint: BRBPR Patient is a 76-year-old male with PMH of atrial flutter, history of lymphoma, diabetes mellitus, hypertension, sleep apnea that presents the ED for bright red blood per rectum. He reports 2 bloody bowel movements today. He also reports occasional melanotic stool the past 1-2 weeks. He denies any nausea or vomiting. He denies any abdominal pain. He denies any headache, lower shunt edema, fever or chills, cough, chest pain, shortness of breath, palpitations, changes in urination or bowel habits. No changes in appetite or weight. He denies any dizziness, numbness/weakness/tingling of the extremities. In the ED, his vital signs are stable. CBC showed hemoglobin of 10.4 with MCV of 107.3. CMP showed sodium of 135, BUN of 21 and glucose 145. Urinalysis negative. Stool for occult blood positive. CT abdomen and pelvis showed bilateral perinephric fat stranding, fecal loading of the colon. Patient is admitted for surgery consultation under observation status. Review of systems was performed and is negative except above. General: [non toxic], [no distress], [appears at stated age] Derm: [warm], [dry] Head: [atraumatic], [normocephalic], [symmetric] Eyes: [EOMI], [no lid lag], [anicteric sclera] Mouth: [no lip lesion], [mucus membranes moist] Cardiovascular: [S1S2 reg], [no murmur], [positive posterior tibial pulse bilateral], Lungs: [CTA bilateral], [no rhonchi, no rales] , [no accessory muscle use] Abdominal: [soft], [ nontender to palpation], [no guarding], [no appreciable organomegaly] Ext: [no gross muscle atrophy], [no edema], [no contractures] Neuro: [ CN II-XI grossly intact], [no focal neuro deficits] Psych: [Alert], [oriented], [appropriate affect] #Lower GI bleed #Constipation #Bilateral perinephric fat stranding #Hyponatremia #Elevated BUN Chronic conditions: Atrial flutter, history of lymphoma, diabetes mellitus, hypertension, sleep apnea Patient presents with bright blood per rectum. His hemoglobin is 10.4. General surgery has been consulted for further management of this patient. Nothing by mouth after midnight for possible C scope/EGD. He has been given GoLYTELY for colonoscopy prep which should also help his constipation. With regard to bilateral perinephric fat stranding seen on CTAP, his urinalysis is negative and kidney function is within normal limits. Elevated BUN and hyponatremia likely related to dehydration. Continue normal saline at 75 mL per hour. BMP will be repeated tomorrow morning. Holding Xarelto due to GI bleed. Restart metoprolol for history of atrial fl utter. Restart Aldactone and Lasix for history of hypertension. Start low-dose insulin sliding scale along with Accu-Cheks 4 times a day and hypoglycemic precautions. Patient encouraged to bring in his CPAP. DVT prophylaxis: [SCDs] Discussed with: [Patient] Anticipated discharge: [1-2 days] Anticipated discharge place: [Home] A total of [45] minutes was spent on the care of this complex patient more than 50% of the time was spent in counseling and care coordination. Patient name his decision-maker if he cant make decisions for himself. Patient would like to be full code. Past Medical History Past Medical History: Atrial Fibrillation, Atrial Flutter, Cancer, Diabetes Mellitus, Hyperlipidemia, Hypertension, Osteoarthritis (OA), Pneumonia, R espiratory Disorder, Sleep Apnea/CPAP/BIPAP Additional Past Medical History / Comment(s): NIDDM type II, nonhodgkins lymphoma, 2019 L lung cancerous mass and received chemo, pulmonary fibrosis, SOB with activity, pneumonias, EARL with Cpap, 1988 pericarditis, chronic low back pain. History of Any Multi-Drug Resistant Organisms: None Reported Past Surgical History: Adenoidectomy, Cardiac Ablation, Joint Replacement, Orthopedic Surgery, Tonsillectomy Additional Past Surgical History / Comment(s): Colonoscopies/benign polypectomies in the past and recently on 01/02/22, cardiac ablation for aflutter , bronchoscopy, bilateral knee arthroscopies and total bilateral knee arthroplasties, total R hip arthroplasty, port a cath since removed, nasal fracture with surgery, bilateral cataract removals. Past Anesthesia/Blood Transfusion Reactions: No Reported Reaction Smoking Status: Former smoker - Past Family History Father Family Medical History: Cancer Additional Family Medical History / Comment(s): LUNG CANCER AND LIVER CANCER Mother Family Medical History: Diabetes Mellitus Medications and Allergies Home Medications Medication Instructions Recorded Confirmed Type Rivaroxaban [Xarelto] 20 mg PO HS 08/24/19 01/13/22 History Rosuvastatin [Crestor] 10 mg PO DAILY 06/13/20 01/13/22 History metFORMIN HCL [Glucophage] 500 mg PO DAILY 06/13/20 01/13/22 History Furosemide [Lasix] 40 mg PO DAILY 12/31/21 01/13/22 History Nintedanib Esylate [Ofev] 150 mg PO BID 12/31/21 01/13/22 History Spironolactone 25 mg PO DAILY 12/31/21 01/13/22 History Metoprolol Succinate (ER) [Toprol 100 mg PO DAILY 01/13/22 01/13/22 History Xl] Allergies Allergy/AdvReac Type Severity Reaction Status Date / Time No Known Allergies Allergy Verified 01/13/22 08:46 Physical Exam Vitals: Vital Signs Temp Pulse Pulse Resp BP BP Pulse Ox 01/13/22 12:31 98.1 F 47 L 18 102/53 98 01/13/22 11:37 64 14 95/64 96 01/13/22 10:52 66 16 90/72 96 01/13/22 08:40 97.6 F 61 18 124/71 98 Intake and Output 01/12/22 01/13/22 01/13/22 22:59 06:59 14:59 Other: Weight 117.934 kg Results CBC & Chem 7: 01/13/22 09:36 01/13/22 09:36 Labs: Abnormal Lab Results - Last 24 Hours (Table) 01/13/22 01/13/22 Range/Units 09:36 09:36 RBC 3.00 L (4.30-5.90) m/uL Hgb 10.4 L (13.0-17.5) gm/dL Hct 32.2 L (39.0-53.0) % MCV 107.3 H (80.0-100.0) fL Sodium 135 L (137-145) mmol/L BUN 21 H (9-20) mg/dL Glucose 145 H (74-99) mg/dL Thrombosis Risk Factor Assmnt - Choose All That Apply Any of the Below Risk Factors Present?: Yes Each Factor Represents 1 point: Obesity (BMI >25), Serious lung disease incl. pneumonia (< 1month) Other Risk Factors: Yes Each Risk Factor Represents 2 Points: Age 61-74 years, Malignancy Other congenital or acquired thrombophilia - If yes, enter type in comment: No Thrombosis Risk Factor Assessment Total Risk Factor Score: 6 Thrombosis Risk Factor Assessment Level: High Risk
[2022-01-13 18:28] LABS: Basophils % (A) 0 %; Eosinophils # (A) 0.1 k/uL (0-0.7); Eosinophils % (A) 1 %; HCT 31.3 % (39.0-53.0); HGB 10.2 gm/dL (13.0-17.5); Lymphocytes # (A) 1.7 k/uL (1.0-4.8); Lymphocytes % (A) 32 %; MCH 34.7 pg (25.0-35.0); MCHC 32.5 g/dL (31.0-37.0); MCV 106.8 fL (80.0-100.0); Macrocytosis Moderate; Mean Platelet Volume 7.8; Monocytes # (A) 0.4 k/uL (0-1.0); Monocytes % (A) 7 %; Neutrophils # (A) 2.9 k/uL (1.3-7.7); Neutrophils % (A) 56 %; Platelet Count 223 k/uL (150-450); RBC 2.93 m/uL (4.30-5.90); RDW 13.6 % (11.5-15.5); WBC 5.2 k/uL (3.8-10.6)
[2022-01-14 02:35] VITALS: RESP 16
[2022-01-14] MEDS ORDERED: METOPROLOL SUCCINATE (ER) 100 MG TAB.ER.24H PO SCH (09:00)
[2022-01-14] MEDS ORDERED: FUROSEMIDE 40 MG TAB PO SCH (09:00)
[2022-01-14] MEDS ORDERED: PANTOPRAZOLE 40 MG/10 ML VIAL IV SCH (09:00)
[2022-01-14] MEDS ORDERED: ATORVASTATIN 20 MG TAB PO SCH (09:00)
[2022-01-14] MEDS ORDERED: SPIRONOLACTONE 25 MG TAB PO SCH (09:00)
[2022-01-14 09:04] LABS: Basophils # (A) 0.02 X 10*3/uL (0.00-0.10); Basophils % (A) 0.4 %; Eosinophils # (A) 0.07 X 10*3/uL (0.04-0.35); Eosinophils % (A) 1.3 %; HCT 26.4 % (39.6-50.0); HGB 8.5 g/dL (13.0-17.0); Immature Grans, Automated 0.4 %; Lymphocytes # (A) 1.13 X 10*3/uL (0.90-5.00); Lymphocytes % (A) 21.6 %; MCHC 32.2 g/dL (32.0-37.0); MCV 105.6 fL (80.0-97.0); Monocytes % (A) 9.5 %; NRBC Per 100 WBC 0 /100 WBCS (0.0-0.0); Neutrophils % (A) 66.8 %; Platelet Count 185 X 10*3/uL (140-440); RDW 14.6 % (11.5-14.5); WBC 5.24 X 10*3/uL (4.50-10.00)
[2022-01-14 09:14] LABS: Anion Gap 8.8 mmol/L (10.00-18.00); BUN/Creat Ratio 10.43 Ratio (12.00-20.00); Blood Urea Nitrogen 8.8 mg/dL (9.0-27.0); Calcium 8.4 mg/dL (8.7-10.3); Carbon Dioxide 28.2 mmol/L (20.0-27.5); Non-African American GFR(CKD) 86.3 (60.0-200.0); Potassium 3.5 mmol/L (3.5-5.5)
[2022-01-14] MEDS ORDERED: PROPOFOL 10 MG/ML 20 ML VIAL IV ONE (12:48)
[2022-01-14] MEDS ORDERED: LIDOCAINE 2% INJ 20 MG/ML (2 ML VIAL) ONE (12:48)
[2022-01-14] MEDS ORDERED: SODIUM CHLORIDE 0.9% 500 ML 500 ML IV ONE ×2 (12:52)
--- NOTE | 2022-01-14 13:39 | P.DS ---
Providers Date of admission: 01/13/22 10:27 Expected date of discharge: 01/14/22 Attending physician: Adrien Cabrera MD Consults: 01/13/22 10:17 Consult Physician Routine Consulting Provider: Roscoe Mac Consult Reason/Comments: lower gi hemorrhage Do you want consulting provider notified?: Yes Primary care physician: Lana Shaver MD Hospital Course: Patient is a 76-year-old male with PMH of atrial flutter, history of lymphoma, diabetes mellitus, hypertension, sleep apnea that presents the ED for bright red blood per rectum. He reports 2 bloody bowel movements today. He also reports occasional melanotic stool the past 1-2 weeks. He denies any nausea or vomiting. He denies any abdominal pain. He denies any headache, lower shunt edema, fever or chills, cough, chest pain, shortness of breath, palpitations, changes in urination or bowel habits. No changes in appetite or weight. He denies any dizziness, numbness/weakness/tingling of the extremities. In the ED, his vital signs are stable. CBC showed hemoglobin of 10.4 with MCV of 107.3. CMP showed sodium of 135, BUN of 21 and glucose 145. Urinalysis negative. Stool for occult blood positive. CT abdomen and pelvis showed bilateral perinephric fat stranding, fecal loading of the colon. Patient is admitted for surgery consultation under observation status. His hemoglobin trended down from 10.4 to 8.5. His BRBPR resolved when he was seen and examined on 01/14. He underwent prep overnight and underwent EGD and colonoscopy. Results showed hemorrhoids, duodenitis and polpy. Patient was advised to follow up with PCP within 1-2 days of discharge. Follow up with Dr. Mac for results of biopsy. He was advised to restart home medications. Patient veralized understanding of the plan. General: [non toxic], [no distress], [appears at stated age] Derm: [warm], [dry] Head: [atraumatic], [normocephalic], [symmetric] Eyes: [EOMI], [no lid lag], [anicteric sclera] Mouth: [no lip lesion], [mucus membranes moist] Cardiovascular: [S1S2 reg], [no murmur], [positive posterior tibial pulse bilateral], Lungs: [CTA bilateral], [no rhonchi, no rales] , [no accessory muscle use] Abdominal: [soft], [ nontender to palpation], [no guarding], [no appreciable organomegaly] Ext: [no gross muscle atrophy], [no edema], [no contractures] Neuro: [no focal neuro deficits] Psych: [Alert], [oriented], [appropriate affect] Discharge Diagnosis: #Lower GI bleed #Constipation #Bilateral perinephric fat stranding #Elevated BUN Resolved: Hyponatremia Chronic conditions: Atrial flutter, history of lymphoma, diabetes mellitus, hypertension, sleep apnea Pertinent Studies: CT AP Procedures: EGD and C-scope Patient Condition at Discharge: Stable Plan - Discharge Summary Discharge Rx Participant: No New Discharge Prescriptions: Continue Rivaroxaban [Xarelto] 20 mg PO HS Rosuvastatin [Crestor] 10 mg PO DAILY metFORMIN HCL [Glucophage] 500 mg PO DAILY Spironolactone 25 mg PO DAILY Nintedanib Esylate [Ofev] 150 mg PO BID Metoprolol Succinate (ER) [Toprol XL] 100 mg PO DAILY Furosemide [Lasix] 40 mg PO DAILY Discharge Medication List Rivaroxaban [Xarelto] 20 mg PO HS 08/24/19 [History] Rosuvastatin [Crestor] 10 mg PO DAILY 06/13/20 [History] metFORMIN HCL [Glucophage] 500 mg PO DAILY 06/13/20 [History] Furosemide [Lasix] 40 mg PO DAILY 12/31/21 [History] Nintedanib Esylate [Ofev] 150 mg PO BID 12/31/21 [History] Spironolactone 25 mg PO DAILY 12/31/21 [History] Metoprolol Succinate (ER) [Toprol XL] 100 mg PO DAILY 01/13/22 [History] Follow up Appointment(s)/Referral(s): Lana Shaver MD [Primary Care Provider] - 1-2 days Roscoe Mac MD [STAFF PHYSICIAN] - 1 Week Activity/Diet/Wound Care/Special Instructions: Diet: Cardiac FU with PCP within 1-2 days of discharge. FU with Dr. Mac within 1 week of discharge. Take all medications as advised. Come back to the ED for worsening rectal bleeding, chest pain, shortness of breath, palpitations or lightheadedness. Discharge Disposition: HOME SELF-CARE
[2022-01-14 13:49] VITALS: BP 106/70; PULSE 72; TEMP 97.8
--- NOTE | 2022-01-14 14:02 | P.OP ---
Date of Procedure: 01/14/22 Preoperative Diagnosis: GI bleed Postoperative Diagnosis: Mild duodenitis Significant internal and external hemorrhoids Mild diverticulosis Rectal polyp Procedure(s) Performed: EGD. Colonoscopy Anesthesia: MAC Surgeon: Roscoe Mac Pathology: other (Duodenum, rectal polyp) Condition: stable Disposition: PACU Description of Procedure: The patient's placed on the endoscopy table in the lateral position. He received IV sedation. The gastro-/oropharynx passed in the esophagus into the stomach. Scope was then placed through the pylorus. The first and second portion of duodenum was examined. There appeared to some mild inflammation of the duodenum. This was biopsied. The scope was then brought back the antrum this. Normal. Scope was retroflexed the meters stomach appeared normal. There was a small hiatal hernia. The GE junction was at 40 cm. The distal esophagus appeared normal. The proximal esophagus. Normal. Scope withdrawn for patient. Next digital rectal exam was performed which revealed internal and external hemorrhoids. The flexible colonoscope was then placed patient anus and passed throughout the entire colon. Ileocecal valve was visualized. The cecum, ascending and transverse colon appeared normal. In the descending; was mild diverticular changes. Scope was brought back the rectum and a small hyperplastic polyp seen this is biopsied. The scope was then withdrawn through the anus internal and external hemorrhoids are noted. There is no evidence of any active GI bleed. Presumed patient's bleeding from his hemorrhoids
== END 2022-01-14 15:00 | disposition home or self-care (01) ==
LOC: EC 08:39 → 6NMEDSUR 10:27
PROVIDERS: ADMIT Family Medicine; ATTEND Family Medicine
DX: K62.1 Rectal polyp (principal); K29.80 Duodenitis without bleeding; K57.30 Diverticulosis of large intestine without perforation or abscess without bleeding; K64.4 Residual hemorrhoidal skin tags; K64.8 Other hemorrhoids; K59.00 Constipation, unspecified; K92.2 Gastrointestinal hemorrhage, unspecified; E87.1 Hypo-osmolality and hyponatremia; I48.91 Unspecified atrial fibrillation; I48.92 Unspecified atrial flutter; G47.33 Obstructive sleep apnea (adult) (pediatric); G89.29 Other chronic pain; M54.9 Dorsalgia, unspecified; E11.9 Type 2 diabetes mellitus without complications; Z85.72 Personal history of non-Hodgkin lymphomas; M19.90 Unspecified osteoarthritis, unspecified site; I31.9 Disease of pericardium, unspecified; J84.10 Pulmonary fibrosis, unspecified; Z86.010 Personal history of colon polyps; E78.5 Hyperlipidemia, unspecified; I10 Essential (primary) hypertension; Z85.118 Personal history of other malignant neoplasm of bronchus and lung; Z92.21 Personal history of antineoplastic chemotherapy; Z96.653 Presence of artificial knee joint, bilateral; Z96.641 Presence of right artificial hip joint; Z98.42 Cataract extraction status, left eye; Z98.41 Cataract extraction status, right eye; Z98.890 Other specified postprocedural states; Z87.891 Personal history of nicotine dependence; Z80.1 Family history of malignant neoplasm of trachea, bronchus and lung; Z80.0 Family history of malignant neoplasm of digestive organs; Z83.3 Family history of diabetes mellitus; Z79.84 Long term (current) use of oral hypoglycemic drugs; Z79.899 Other long term (current) drug therapy; Z79.01 Long term (current) use of anticoagulants; E66.9 Obesity, unspecified; Z68.33 Body mass index [BMI] 33.0-33.9, adult
CPT/HCPCS: 96376; 96361; 96374; 99285; 36415; 88305; 80053; 80048; 85025 ×2; 85610; 85730; 82272; 81003; 74177; 45380; 43239; G0378 ×2; J2704; C9113 ×2; Q9967; J2001; 93005

== ENCOUNTER → 2022-04-10 | Outpatient (CLI) | payer MEDICARE ==
--- NOTE | 2022-04-10 13:59 | PE ---
EXAMINATION TYPE: PET CT fusion skull to thigh DATE OF EXAM: 04/10/2022 COMPARISON: Most recent PET CT May 30, 2021 and older PET CTs. 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 TECHNIQUE: Following the intravenous administration of 12.25 mCi of F-18 FDG, whole body images are performed from the skull base to the midthigh. Images are reviewed on the computer in the coronal, a xial, and sagittal planes. Reconstructed rotating images are created on independent workstation and reviewed on the computer. A localization and attenuation correction CT is performed in conjunction with the PET scan. Blood glucose level equals 128 SCAN: Subsequent Scan FINDINGS: SKULL BASE AND NECK: No new areas of abnormal hypermetabolic uptake. CHEST, MEDIASTINUM, AND HILAR REGION: Prominent Mediastinal lymph nodes more are stable in size and r emain ametabolic. There is persistent low lung volumes with at least moderate emphysematous and pulmo nary fibrotic change with persistent peripheral mass like thickening and/or consolidation in the ante rolateral left upper to midlung. This remains ametabolic. No significant change from most recent CT. No new areas of abnormal hypermetabolic uptake. ABDOMEN AND PELVIS: Normal excretion. More prominent nonspecific peripheral bowel uptake incidentally noted. No new areas of suspicious hypermetabolic uptake. Mild symmetric uptake lateral bilateral thi gh muscles could reflect inflammatory etiology. OSSEOUS STRUCTURES: No new areas of abnormal suspicious hypermetabolic uptake. OTHER CT: Moderate to severe calcified plaque bilateral carotid bulb level right greater than left re demonstrated. Mild cardiomegaly. Coronary artery calcification and/or stents redemonstrated. Bilateral subareolar f lame-shaped gynecomastia again seen. Liver now diffusely low dense consistent with fatty infiltration. Metallic hardware from right hip ar throplasty causes streak artifact limiting evaluation of pelvic structures. Multilevel spurring in th e spine. Scattered bilateral pelvic phleboliths redemonstrated. Lower lumbar spine facet arthropathy. IMPRESSION: No new areas of abnormal hypermetabolic uptake to suggest active neoplastic recurrence. P osttreatment changes to left lung redemonstrated and stable.
== END | disposition home or self-care (01) ==
LOC: RADPETMAIN 08:14
PROVIDERS: ATTEND Internal Medicine Hematology & Oncology
DX: C83.39 Diffuse large B-cell lymphoma, extranodal and solid organ sites (principal)
CPT/HCPCS: 78815; A9552

== ENCOUNTER → 2022-06-26 | Outpatient (CLI) | payer MEDICARE ==
--- NOTE | 2022-06-26 12:03 | XR ---
EXAMINATION TYPE: XR lumbar spine 2 or 3V DATE OF EXAM: 06/26/2022 11:27 AM INDICATION: Patient age:Male; 76 years old; Reason for study: M51.26 OTHER INTERVERTEBRAL DISC DISPLACEMENT, LUM; COMPARISON: PET/60 04/10/2022 TECHNIQUE: Frontal, lateral and coned in L5-S1 lateral views of the spine. FINDINGS: No evidence of any acute osseous pathology. Minimal vertebral height loss of the vertebral bodies. There is normal alignment of the lumbar vertebral bodies. Mild scattered disc space narrowing . Multilevel marginal osteophyte formation throughout the visualized spine. There is facet joint arth ropathy throughout the spine. Scattered at least mild neural foraminal stenosis. Atherosclerosis of t he arterial vasculature. IMPRESSION: 1. No acute fracture. 2. Mild multilevel disc degeneration.
== END | disposition home or self-care (01) ==
LOC: RADXRMAIN 10:16
PROVIDERS: ATTEND Family Medicine
DX: M51.36 Other intervertebral disc degeneration, lumbar region (principal); M47.816 Spondylosis without myelopathy or radiculopathy, lumbar region; M51.26 Other intervertebral disc displacement, lumbar region; M99.73 Connective tissue and disc stenosis of intervertebral foramina of lumbar region
CPT/HCPCS: 72100

== ENCOUNTER → 2022-07-03 | Outpatient (CLI) | payer MEDICARE ==
--- NOTE | 2022-07-03 11:30 | US ---
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 no h/o stroke, no symptoms, ass ess for stenosis TECHNIQUE: Carotid duplex ultrasound examination. Indirect Doppler criteria was utilized. FINDINGS: EXAM MEASUREMENTS: RIGHT: Peak Systolic Velocity (PSV) cm/sec ----- Right CCA: 63.2 ----- Right ICA: 98.7 ----- Right ECA: 100 ICA/CCA ratio: 1.5 RIGHT: End Diastole cm/sec ----- Right CCA: 16.4 ----- Right ICA: 33.4 ----- Right ECA: 15.6 LEFT: Peak Systolic Velocity (PSV) cm/sec ----- Left CCA: 66.8 ----- Left ICA: 125 ----- Left ECA: 113 ICA/CCA ratio: 1.9 LEFT: End Diastole cm/sec ----- Left CCA: 13.9 ----- Left ICA: 39.6 ----- Left ECA: 13.0 VERTEBRALS (direction of flow): Right Vertebral: Antegrade Left Vertebral: Antegrade Rhythm: Known A-fib SHIP OFFICER NOTES: Heterogeneous plaque bilat bulbs with no significant stenosis IMPRESSION: Bilateral plaque without evidence for hemodynamically significant stenosis. Criteria for Assigning % of Stenosis / Diameter reduction (Estimation based on the indirect measurements of the internal carotid artery velocities (ICA PSV). 1. Normal (no stenosis)=ICA PSV < 125 cm/s: ratio < 2.0: ICA EDV<40 cm/s. 2. Less than 50% stenosis=ICA PSV < 125 cm/s: ratio < 2.0: ICA EDV<40 cm/s. 3. 50 to 69% stenosis=ICA PSV of 125 to 230 cm/s: ration 2.0 ? 4.0: ICA EDV 40-100 cm/s. 4. Greater than 70% stenosis to near occlusion= ICA PSV > 230 cm/s: ratio > 4.0: ICA EDV > 100 cm/s. 5. Near occlusion= ICA PSV velocities may be low or undetectable: variable ratio and ICA EDV. 6. Total occlusion=unable to detect flow.
== END | disposition home or self-care (01) ==
LOC: RADUSWWP 10:57
PROVIDERS: ATTEND Family Medicine
DX: I65.23 Occlusion and stenosis of bilateral carotid arteries (principal)
CPT/HCPCS: 93880

== ENCOUNTER → 2022-08-21 | Outpatient (CLI) | payer MEDICARE ==
[2022-08-21 12:00] LABS: INR 1.2 (<1.2); Partial Thromboplastin Time 31.5 sec (22.0-30.0); Prothrombin Time 12.5 sec (9.0-12.0)
[2022-08-21 14:54] LABS: HCT 38.5 % (39.6-50.0); HGB 12.3 g/dL (13.0-17.0); MCH 34.3 pg (27.0-32.0); MCHC 31.9 g/dL (32.0-37.0); MCV 107.2 fL (80.0-97.0); Mean Platelet Volume 10.2 fL (9.5-12.2); NRBC Per 100 WBC 0 /100 WBCS (0.0-0.0); Platelet Count 189 X 10*3/uL (140-440); RBC 3.59 X 10*6/uL (4.40-5.60); WBC 5.14 X 10*3/uL (4.50-10.00)
[2022-08-21 16:05] LABS: Basophils # (A) 0.02 X 10*3/uL (0.00-0.10); Basophils % (A) 0.4 %; Eosinophils # (A) 0.09 X 10*3/uL (0.04-0.35); Eosinophils % (A) 1.8 %; Immature Grans, Automated 0.4 %; Lymphocytes # (A) 1.62 X 10*3/uL (0.90-5.00); Lymphocytes % (A) 31.5 %; Macrocytosis (M) 2+; Monocytes # (A) 0.57 X 10*3/uL (0.20-1.00); Monocytes % (A) 11.1 %; Neutrophils # (A) 2.82 X 10*3/uL (1.80-7.70); Neutrophils % (A) 54.8 %
[2022-08-21 19:25] LABS: ALT 27 U/L (10-49); AST 24 U/L (14-35); African American GFR (CKD) 89.9 (60.0-200.0); Albumin 4.3 g/dL (3.8-4.9); Albumin/Globulin Ratio 1.86 (1.60-3.17); Alkaline Phosphatase 75 U/L (41-126); BUN/Creat Ratio 16.98 Ratio (12.00-20.00); Blood Urea Nitrogen 16.2 mg/dL (9.0-27.0); Carbon Dioxide 23.8 mmol/L (20.0-27.5); Chloride 104 mmol/L (96-109); Chol/HDL Ratio 2.42 Ratio; Globulin 2.3 g/dL (1.6-3.3); Glucose 122 mg/dL (70-110); LDL Cholesterol,Calculated 35.5 mg/dL (0.0-131.0); Non-African American GFR(CKD) 77.6 (60.0-200.0); Potassium 4.5 mmol/L (3.5-5.5); Sodium 139 mmol/L (135-145); Total Protein 6.5 g/dL (6.2-8.2); Uric Acid 7.2 mg/dL (3.7-8.7)
[2022-08-21 20:52] LABS: Appearance,Urine Clear (Clear); Bilirubin,Urine Negative (Negative); Blood,Urine Negative (Negative); Color,Urine Yellow (Yellow); Ketones,Urine Negative (Negative); Nitrite,Urine Negative (Negative); Specific Gravity,Urine 1.014 (1.001-1.030); Urobilinogen,Urine 0.2 (0.2,1.0)
[2022-08-21 22:05] LABS: Urine Creatinine 88.6 mg/dL (39.0-259.0)
== END | disposition home or self-care (01) ==
LOC: LABPAT 10:15
PROVIDERS: ATTEND Orthopaedic Surgery
DX: Z01.812 Encounter for preprocedural laboratory examination (principal); J84.10 Pulmonary fibrosis, unspecified; I48.20 Chronic atrial fibrillation, unspecified; C85.10 Unspecified B-cell lymphoma, unspecified site; E11.9 Type 2 diabetes mellitus without complications; N40.0 Benign prostatic hyperplasia without lower urinary tract symptoms; E78.2 Mixed hyperlipidemia; E53.8 Deficiency of other specified B group vitamins; E55.9 Vitamin D deficiency, unspecified; M16.12 Unilateral primary osteoarthritis, left hip
CPT/HCPCS: 80053; 80061; 81003; 82043; 82306; 82570; 82607; 83036; 83735; 83880; 84153; 84439; 84443; 84550; 85025; 85610; 85730; 87070

== ENCOUNTER 2022-09-01 12:11 | Day surgery (SDC) | payer MEDICARE ==
[2022-08-26 14:39] VITALS: BMI 36.3
[~2022-09-01 12:11] MED LIST changes: +ACETAMINOPHEN TAB 500 MG TAB PO PRN; +DEXAMETHASONE SOD PHOSPHATE 4 MG/ML 1 ML VIAL IV ONE; +GABAPENTIN 300 MG CAP PO PRN; +HYDROmorphone 0.5 MG/0.5 ML SYRINGE IVP PRN; -LACTATED RINGERS 1,000 ML IV SCH; +LIDOCAINE 1% (10MG/ML) FOR IV START INTRADERMA PRN; +MELOXICAM 7.5 MG TAB PO PRN; +ONDANSETRON 4 MG/2 ML VIAL IVP PRN; +TRANEXAMIC ACID IN NACL,ISO-OS 1,000 MG in SALINE 1 100ML.BAG IVPB PRN; +ceFAZolin 3 GM in SODIUM CHLORIDE 0.9% 100 ML IVPB PRN
[2022-09-01] MEDS: LACTATED RINGERS 1,000 ML IV SCH (12:25)
[2022-09-01 12:57] LABS: Glucose,Whole Blood 128 mg/dL (70-110)
[2022-09-01] MEDS ORDERED: HYDROmorphone 0.5 MG/0.5 ML SYRINGE IVP PRN ×3 (13:10)
[2022-09-01] MEDS ORDERED: NALOXONE 0.4 MG/ML 1 ML VIAL IV PRN (13:10)
[2022-09-01] MEDS ORDERED: ONDANSETRON 4 MG/2 ML VIAL IVP PRN (13:10)
[2022-09-01] MEDS ORDERED: MAGNESIUM HYDROXIDE 2,400 MG/10 ML CUP PO PRN (13:10)
[2022-09-01] MEDS ORDERED: MIDAZOLAM 2 MG/2 ML VIAL IVP ONE (13:13)
[2022-09-01] MEDS ORDERED: HYDROcodone/APAP 7.5-325MG 1 EACH TAB PO PRN ×2 (13:13)
[2022-09-01] MEDS ORDERED: fentaNYL (PF) 50 MCG/ML 2 ML AMP ONE (13:30)
[2022-09-01] MEDS ORDERED: SUCCINYLCHOLINE CHLORIDE 200 MG/10 ML VIAL IV ONE (13:30)
[2022-09-01] MEDS ORDERED: TRANEXAMIC ACID IN NACL,ISO-OS 1,000 MG/100 ML BAG ONE (13:30)
[2022-09-01] MEDS ORDERED: ALBUMIN HUMAN 5% (25gm) 500 ML VIAL IVPB ONE (13:30)
[2022-09-01] MEDS ORDERED: PROPOFOL 10 MG/ML 20 ML VIAL IV ONE (13:30)
[2022-09-01] MEDS ORDERED: HYDROmorphone (PF) 1 MG/ML ONE (13:30)
[2022-09-01] MEDS ORDERED: LIDOCAINE 2% INJ 20 MG/ML (2 ML VIAL) ONE (13:30)
[2022-09-01] MEDS ORDERED: ROPIVACAINE 5 MG/ML 30 ML VIAL MISCELLANE ONE (14:05)
[2022-09-01] MEDS ORDERED: ceFAZolin 1,000 MG in SODIUM CHLORIDE 0.9% 1,000 ML IRRIGATION ONE (14:30)
[2022-09-01] MEDS ORDERED: LACTATED RINGERS 1,000 ML IV ONE (15:03)
--- NOTE | 2022-09-01 15:18 | P.OP ---
Date of Procedure: 09/01/22 Preoperative Diagnosis: Severe osteoarthritis left hip Postoperative Diagnosis: Severe osteoarthritis left hip Procedure(s) Performed: Left total hip arthroplasty with a direct anterior approach Implants: [employer] Polarstem standard size 5 [employer] R3, 3 hole hemispherical acetabular shell, 56 mm [employer] Reflection 6.5 mm cancellus screw, 20 mm, 25 mm [employer] R3, XLPE 20 acetabular liner [employer] Oxinium femoral head 36 m, +4 All components were press-fit. The articulation is Oxinium on polyethylene. Anesthesia: GETA Surgeon: Michael Chaidez File Clerk #1: Sierra Lopes Estimated Blood Loss (ml): 900 Pathology: other (Femoral head) Condition: stable Disposition: PACU Indications for Procedure: After failure of conservative treatment we discussed the surgical and nonsurgica l treatment options at length. Patient wishes to proceed with a total hip arthroplasty with a direct anterior approach. Complications specific to this procedure were discussed at length, including but not limited to infection, leg length discrepancy, dislocation, nerve injury, and fracture. Covid-19 was also discussed at length with the patient, and they are aware of the current policies and procedures. The patient was given the option of delaying surgery, but they elect to proceed knowing these risks. Patient is aware of all these complications and informed consent was obtained Operative Findings: The operative findings are consistent with severe osteoarthritis of the left hip Description of Procedure: Patient was seen and evaluated in the preoperative area and the consent was reviewed. The operative site was marked with a skin marker. The patient was then brought to the operating room and given preoperative antibiotics intravenously. 1 g of Tranexamic acid was also given intravenously. A general anesthetic was administered by the anesthesia department. The patient was then placed on the [place] table with the bony prominences well-padded. The hip area was then prepped with a ChloraPrep solution and draped in the usual sterile fashion. A universal timeout was then performed, which confirmed the patient's name, surgical site, ALLERGIES, and procedure being performed on the consent. Next the incision site was located at 1 cm distal and 2 cm lateral to the anterior superior iliac spine. The skin and subcutaneous tissues were sharply incised. Incision was carefully dissected down to the fascia overlying the tensor fascia lukasz muscle. This fascia was then incised in line with the incision. Care was taken to stay laterally in order to avoid injuring the lateral femoral cutaneous nerve. Next, using blunt finger dissection, the tensor fascia lukasz muscle was dissected off its investing fascia. The muscle was then carefully retracted laterally with a cobra retractor over the lateral neck of the femur. Next, the circumflex vessels were identified and cauterized using the AquaMantis device. The anterior hip capsule was then exposed. The capsule was then opened and an inverted T fashion. Cobra retractors were then placed intracapsularly. The retractors were maintained intracapsular throughout the procedure. The proximal femur was then visualized. Fluoroscopic x-rays were then taken in order to evaluate the preoperative leg lengths. On the preoperative x-rays the operative leg was slightly longer than the opposite leg in 2 different measurements. A small amount of traction was placed on the leg. The femoral neck was then osteotomized at the appropriate level above the lesser trochanter. A small wedge of bone was then removed from the remaining femoral head. Next, using a corkscrew the femoral head was removed from the acetabulum. On gross visual inspection, the femoral head had complete loss of articular cartilage and multiple periarticular osteophytes. The femoral head was then measured. Attention was then turned to the acetabulum. The acetabulum was exposed and any remaining labrum was excised. Sequential reaming of the acetabulum was performed using fluoroscopic guidance until there was a good bed of bleeding cancellus bone. When the appropriate size was re ached, a trial was then placed. The position and fit of the trial was checked with fluoroscopy. The trial was then removed. Then, using fluoroscopic guidance, the final implant was impacted at 20 of anteversion and 40 of abduction, and fully seated in the acetabulum. 2 screws were then placed in the acetabulum. Again fluoroscopy was used to check position of the screws. Next, the liner was then impacted, with a 20 elevated liner located in the anterior superior quadrant. Component locking was confirmed. Attention was then directed to the femur. With the aid of the [place] table, the f emur was externally rotated to approximately 130, extended, and adducted under the opposite leg. A side hook was then placed under the proximal femur, and the side hook elevator was used to elevate the proximal femur while releasing the capsule. Retractors were then placed. A capsular release was performed, as well as a release of the conjoined tendon, which afforded excellent visualization of the proximal femur. Next, a box osteotome was used to lateralize the proximal femur. A smash hand was then used to locate the femoral canal. Sequential broaching was then performed with appropriate size which afforded excellent fixation in the proximal femur. A trial was then placed with appropriate head and neck, and the hip was gently reduced with the aid of the [place] table. Fluoroscopy was then used to check position of the components, as well as to evaluate the leg lengths and offset. The leg lengths and offset were measured as closely as possible to ensure stability of the hip. The hip was then gently dislocated and the trials were then removed. Final implants were then impacted and the hip was again reduced. Final fluoroscopic x-rays confirmed that the components were in anatomic position. The leg lengths and offset were measured and were found to coincide with the trial measurements. The hip was also taken through range of motion, and found to be stable. The hip was then copiously irrigated with antibiotic solution with pulsatile lavage. The hip was then irrigated with Irrisept solution. The soft tissues were then injected with a ropivacaine solution. A second dose of 1 g of Tranexamic acid was also given intravenously. The fascia was then closed with 2-0 strata fix suture. The subcutaneous tissue was closed with 3-0 Vicryl. The subcuticular tissue was closed with 3-0 strata fix suture. The skin was then closed with Exofin skin glue. After the glue and dried, and Optifoam silver impregnated dressing was applied. The patient was then transferred to the recovery room in stable condition. The animal care assistant MANPREET Costello was required due to the complexity of surgery, and the need for skilled operating room surgical technician for positioning, draping, exposure, retraction, and closure of the wound.
[2022-09-01] MEDS ORDERED: METOPROLOL TARTRATE 5 MG/5 ML VIAL IVP ONE (16:12)
[2022-09-01] MEDS: SODIUM CHLORIDE 0.9% 1,000 ML IV SCH (16:19)
[2022-09-01 16:27] LABS: Glucose,Whole Blood 152 mg/dL (70-110)
--- NOTE | 2022-09-01 16:33 | XR ---
EXAMINATION TYPE: XR Hip Limited LT, FL guidance operating room DATE OF EXAM: 09/01/2022 Comparison: None Clinical History: 77-year-old male Left Hip-Ant Findings: Intraoperative fluoroscopy during left hip total arthroplasty. A previous right total arthroplasty is demonstrated on the images. FLUOROSCOPY Fluoroscopy time of 1 minute 3 seconds was used during left hip total arthroplasty. 6 image/s docume nt/s the procedure. Impression: Intraoperative fluoroscopy as above.
--- NOTE | 2022-09-01 16:41 | XR ---
EXAMINATION TYPE: XR Hip Limited LT DATE OF EXAM: 09/01/2022 Comparison: None Clinical History: 77-year-old male Status post hip surgery, assess surgical alignment Findings: Image shows placement of left total hip arthroplasty. Acetabular cup and femoral stem components of t he prosthesis are well seated without prosthetic fracture. Scattered soft tissue air related to recen t operation. Alignment grossly anatomic. Impression: Uncomplicated postoperative appearance left total hip arthroplasty.
[2022-09-01] MEDS ORDERED: DEXTROSE 50% SYRINGE 50 ML IVP PRN ×2 (17:54)
[2022-09-01] MEDS: METOPROLOL SUCCINATE (ER) 100 MG TAB.ER.24H PO SCH (18:08)
[2022-09-01 19:51] LABS: Glucose,Whole Blood 189 mg/dL (70-110)
[2022-09-01] MEDS: INSULIN ASPART (NovoLOG) 100 UNIT/ML VIAL SQ SCH (20:58)
[2022-09-01] MEDS ORDERED: SENNOSIDES-DOCUSATE SODIUM 1 EACH TAB PO SCH (21:00)
[2022-09-02 02:21] VITALS: RESP 16
--- NOTE | 2022-09-02 03:38 | CONS ---
CONSULTATION REASON FOR CONSULTATION: Advice regarding diabetes mellitus and other medical issues, requested by Surgery. HISTORY OF PRESENT ILLNESS: This 77-year-old gentleman with past medical history of diabetes mellitus, atrial fibrillation, who underwent left total hip arthroplasty. The patient is being closely monitored. There is no history of any fever, rigors, chills at this time. PAST MEDICAL HISTORY: Reviewed, include atrial fibrillation, atrial flutter, diabetes mellitus type 2. Rest of the history and rest of the chart is reviewed. HOME MEDICATIONS: Reviewed include Xarelto. Doses and rest of the medications reviewed. ALLERGIES: None known. FAMILY HISTORY: History of lung cancer. SOCIAL HISTORY: Previous history of smoker. REVIEW OF SYSTEMS: A 14-point review is negative, except as mentioned earlier. PHYSICAL EXAMINATION: VITAL SIGNS: Pulse is 94, blood pressure n respirations 16. HEENT: Conjunctivae normal. NECK: No JVD. CARDIOVASCULAR: S1, S2. RESPIRATIONS: Breath sounds diminished at the bases. No rhonchi. No crackles. ABDOMEN: Soft. Nontender. LEGS: Status post left hip arthroplasty. NERVOUS SYSTEM: No focal deficits. LABORATORY DATA: Noted. ASSESSMENT: 1. Status post left total hip arthroplasty. 2. Diabetes mellitus, type 2. 3. Atrial flutter/fibrillation. 4. Hypertension. 5. Hyperlipidemia. 6. Multiple medical issues. RECOMMENDATIONS AND DISCUSSION: In this 77-year-old gentleman, who presented with multiple complex medical issues, we will monitor the patient closely. Recommend to resume home medications, n NovoLog scale. Also, otherwise the Xarelto may be initiated within the 24 hours when acceptable to Orthopedic Surgery. Further recommendations to follow. See orders for details. Also recommend for 24 hours. MMODL / IJN: [id number] / [facility]
[2022-09-02 06:07] LABS: Glucose,Whole Blood 165 mg/dL (70-110)
[2022-09-02] MEDS: SODIUM CHLORIDE 0.9% 1,000 ML IV SCH (06:50)
[2022-09-02] MEDS: LACTATED RINGERS 1,000 ML IV SCH (06:50)
[2022-09-02] MEDS ORDERED: ceFAZolin 3 GM in SODIUM CHLORIDE 0.9% 100 ML IVPB SCH (07:00)
--- NOTE | 2022-09-02 07:33 | P.DS ---
Providers Expected date of discharge: 09/02/22 Attending physician: Michael Chaidez Consults: 09/01/22 13:10 Consult Physician Routine Consulting Provider: Braeden Vega Consult Reason/Comments: medical management Do you want consulting provider notified?: Yes Primary care physician: Hoda Samsono - Discharge Diagnosis(es) (1) Primary localized osteoarthritis of left hip Current Visit: Yes Status: Acute (2) Status post total replacement of left hip Current Visit: Yes Status: Acute Hospital Course: This is a 77-year-old male with known history of degenerative arthritis of the left hip. The patient presents for evaluation. After discussion and consideration patient elects to proceed with total hip arthroplasty with direct anterior approach. The patient is seen preoperatively by primary care physician and cleared for surgery. Patient is admitted to [facility] on 09/01/2022 for total hip arthroplasty with direct anterior approach. The procedure is performed without complication or sequelae. The patient is doing well postoperatively. Labs and vital signs are stable on day of discharge. On day of discharge patient's hip incision is healing well. There is minimal erythema. There is no drainage noted at this time. There is minimal soft tissue swelling to the hip and thigh. Patient has full foot and ankle motion without difficulty or pain. Neurovascular status to the lower extremity is intact. Patient is discharged to home in good condition. Please see med rec for accurate list of home medications. Patient Condition at Discharge: Good Plan - Discharge Summary Discharge Rx Participant: No New Discharge Prescriptions: New Sennosides [Senokot] 2 tab PO DAILY PRN #60 tablet PRN Reason: Constipation HYDROcodone/APAP 7.5-325MG [[place] 7.5-325] 1 - 2 tab PO Q6H PRN #32 tab PRN Reason: Pain No Action Rivaroxaban [Xarelto] 20 mg PO HS Rosuvastatin [Crestor] 10 mg PO DAILY metFORMIN HCL [Glucophage] 500 mg PO DAILY Nintedanib Esylate [Ofev] 150 mg PO BID Metoprolol Succinate (ER) [Toprol XL] 100 mg PO QAM HYDROcodone/APAP 7.5-325MG [[place] 7.5-325] 1 tab PO Q6HR PRN PRN Reason: Pain Discharge Medication List Rivaroxaban [Xarelto] 20 mg PO HS 08/24/19 [History] Rosuvastatin [Crestor] 10 mg PO DAILY 06/13/20 [History] metFORMIN HCL [Glucophage] 500 mg PO DAILY 06/13/20 [History] Nintedanib Esylate [Ofev] 150 mg PO BID 12/31/21 [History] Metoprolol Succinate (ER) [Toprol XL] 100 mg PO QAM 01/13/22 [History] HYDROcodone/APAP 7.5-325MG [[place] 7.5-325] 1 tab PO Q6HR PRN 08/26/22 [History] HYDROcodone/APAP 7.5-325MG [[place] 7.5-325] 1 - 2 tab PO Q6H PRN #32 tab 09/01/22 [Rx] Sennosides [Senokot] 2 tab PO DAILY PRN #60 tablet 09/01/22 [Rx] Follow up Appointment(s)/Referral(s): Michael Chaidez DO [Doctor of Osteopathic Medicine] - 2 Weeks Activity/Diet/Wound Care/Special Instructions: Weightbearing as tolerated with walker. Leave dressing intact. Dressing may be removed by home care nurse or by patient in 7 days. Then change dressing twice daily until follow up. May shower with initial dressing intact and after removal. If dressing become saturated, please remove. Please resume Xarelto. Recommend use of compression stockings daily until follow up to help prevent swelling and blood clots. May remove at night before sleeping. Please follow[facility]up with [facility] in 2 weeks and call with any questions or concerns, . Discharge Disposition: HOME WITH HOME HEALTH SERVICES
[2022-09-02] MEDS: INSULIN ASPART (NovoLOG) 100 UNIT/ML VIAL SQ SCH ×2 (07:40→11:32)
[2022-09-02 08:24] VITALS: BP 111/61; PULSE 69; TEMP 98.1
[2022-09-02] MEDS: METOPROLOL SUCCINATE (ER) 100 MG TAB.ER.24H PO SCH (08:32)
[2022-09-02 08:59] LABS: Basophils # (A) 0 X 10*3/uL (0.00-0.10); Basophils % (A) 0 %; Eosinophils # (A) 0 X 10*3/uL (0.04-0.35); Eosinophils % (A) 0 %; HCT 29.7 % (39.6-50.0); HGB 9.5 g/dL (13.0-17.0); Immature Grans, Automated 0.3 %; Lymphocytes # (A) 0.59 X 10*3/uL (0.90-5.00); Lymphocytes % (A) 7.5 %; MCH 35.2 pg (27.0-32.0); Mean Platelet Volume 10.3 fL (9.5-12.2); Monocytes # (A) 0.64 X 10*3/uL (0.20-1.00); Monocytes % (A) 8.1 %; NRBC Per 100 WBC 0 /100 WBCS (0.0-0.0); Neutrophils # (A) 6.61 X 10*3/uL (1.80-7.70); Neutrophils % (A) 84.1 %; Platelet Count 152 X 10*3/uL (140-440); RDW 12.6 % (11.5-14.5); WBC 7.86 X 10*3/uL (4.50-10.00)
[2022-09-02] MEDS ORDERED: METOPROLOL SUCCINATE (ER) 100 MG TAB.ER.24H PO SCH (09:00)
[2022-09-02] MEDS ORDERED: ATORVASTATIN 20 MG TAB PO SCH (09:00)
[2022-09-02] MEDS ORDERED: metFORMIN 500 MG TAB PO SCH (09:00)
--- NOTE | 2022-09-02 10:57 | P.ANPRN ---
Procedure Note - Anesthesia - Nerve Block Performed Left Humberto Single Time Out Performed: Yes Date of Procedure: 09/01/22 Procedure Start Time: 13:12 Procedure Stop Time: 13:18 Location of Patient: PreOp Indication: Acute Post-Operative Pain, Requested by Surgeon Sedation Type: Sedate with meaningful contact maintained Preparation: Sterile Prep Position: Supine Needle Types: Pajunk Needle Gauge: 21 Ultrasound used to visualize needle placement: Yes Ultrasound used to observe medication spread: Yes Blood Aspirated: No Pain Paresthesia on Injection Noted: No Resistance on Injection: Normal Image Stored and Saved: Yes Events: Uneventful and Well Tolerated (ropi .5% 25cc plus dexamethasone 4mg)
[2022-09-02 11:25] LABS: Glucose,Whole Blood 130 mg/dL (70-110)
--- NOTE | 2022-09-02 13:24 | PN ---
PROGRESS NOTE DATE OF SERVICE: 09/02/2022 SUBJECTIVE: This is a 77-year-old gentleman who was admitted after left total hip joint arthroplasty, is improving significantly. No chest pain, no palpitations, no fever. OBJECTIVE: VITAL SIGNS: Pulse 69, blood pressure 111/69, and respirations 16. CHEST: Clear to auscultation. CARDIOVASCULAR: S1, S2. ABDOMEN: Soft. MUSCULOSKELETAL: Status post surgery. LABS: Noted. ASSESSMENT: 1. Status post left total knee arthroplasty. 2. Diabetes mellitus, type 2. 3. Atrial flutter fibrillation. 4. Hypertension. 5. Hyperlipidemia. 6. Multiple medical issues. RECOMMENDATIONS: Recommended to continue current management and resume the home medications. Follow closely with primary physician. Rest of the recommendations per Orthopedic surgery. Further recommendations to follow. MMODL / IJN: [id number] /
[2022-09-02] MEDS ORDERED: RIVAROXABAN 20 MG TAB PO SCH (17:30)
== END 2022-09-02 12:08 | disposition home health service (06) ==
LOC: OR 12:11 → 4SSUR 15:28 → OR 09-02 12:08
PROVIDERS: ATTEND Orthopaedic Surgery
DX: M16.12 Unilateral primary osteoarthritis, left hip (principal); I48.91 Unspecified atrial fibrillation; E11.9 Type 2 diabetes mellitus without complications; J98.4 Other disorders of lung; Z79.84 Long term (current) use of oral hypoglycemic drugs; C85.90 Non-Hodgkin lymphoma, unspecified, unspecified site; Z79.01 Long term (current) use of anticoagulants; Z79.899 Other long term (current) drug therapy; Z79.1 Long term (current) use of non-steroidal anti-inflammatories (NSAID); Z79.83 Long term (current) use of bisphosphonates; Z79.02 Long term (current) use of antithrombotics/antiplatelets; Z79.891 Long term (current) use of opiate analgesic; Z87.891 Personal history of nicotine dependence; G89.18 Other acute postprocedural pain
CPT/HCPCS: 97161; 97535; 97166; 64447; 85025; 83036; 73501; 27130; 76942; C1776; J2250; J0330; J1100; J0690 ×3; J2405; J3010; J1170 ×2; J2795; P9045; J2704; J2001; 86850; 86900; 86901; 88300

== ENCOUNTER → 2022-09-08 | Outpatient (CLI) | payer MEDICARE ==
--- NOTE | 2022-09-08 15:02 | US ---
EXAMINATION TYPE: US venous doppler duplex LE LT DATE OF EXAM: 09/08/2022 2:49 PM COMPARISON: NONE CLINICAL HISTORY: I80.9 PHLEBITIS AND THROMBOPHLEBITIS OF UNSP. HIP surgery x 1 weeks ago. Leg swell ing. No redness. On blood thinners. SIDE PERFORMED: Left TECHNIQUE: The lower extremity deep venous system is examined utilizing real time linear array sonog mary with graded compression, doppler sonography and color-flow sonography. VESSELS IMAGED: Common Femoral Vein Deep Femoral Vein Greater Saphenous Vein * Femoral Vein Popliteal Vein Small Saphenous Vein * Proximal Calf Veins (* superficial vessels) Left Leg: Negative for DVT, edema visualized,Grayscale, color doppler, spectral doppler imaging perf ormed of the deep veins of the lower extremities. There is normal flow, compressibility, vascular wa veforms. IMPRESSION: 1. No evidence of left lower extremity deep vein thrombosis. 2. Subcutaneous edema.
== END | disposition home or self-care (01) ==
LOC: RADUSWWP 14:20
PROVIDERS: ATTEND Orthopaedic Surgery
DX: I80.9 Phlebitis and thrombophlebitis of unspecified site (principal); R60.0 Localized edema

== ENCOUNTER 2024-02-28 19:50 | Inpatient (IN) | payer MEDICARE ==
[2024-02-28 21:33] LABS: Appearance,Urine Clear (Clear); Basophils % (A) 0 %; Bilirubin,Urine Negative (Negative); Blood,Urine Negative (Negative); Color,Urine Light Yellow; Eosinophils % (A) 1 %; Glucose,Urine (UA) 4+ (Negative); HCT 50.6 % (39.0-53.0); HGB 15.5 gm/dL (13.0-17.5); Ketones,Urine Negative (Negative); Leukocyte Esterase,Urine Negative (Negative); Lymphocytes # (A) 0.3 k/uL (1.0-4.8); Lymphocytes % (A) 7 %; MCH 32.3 pg (25.0-35.0); MCHC 30.7 g/dL (31.0-37.0); MCV 105.2 fL (80.0-100.0); Macrocytosis Moderate; Mean Platelet Volume 8.5; Monocytes # (A) 0.2 k/uL (0-1.0); Monocytes % (A) 4 %; Neutrophils # (A) 3.6 k/uL (1.3-7.7); Neutrophils % (A) 87 %; Nitrite,Urine Negative (Negative); PH, Urine 7.5 (5.0-8.0); Platelet Count 125 k/uL (150-450); Protein,Urine 1+ (Negative); RBC 4.81 m/uL (4.30-5.90); RBC,Urine 3 /hpf (0-5); RDW 13.7 % (11.5-15.5); Specific Gravity,Urine 1.021 (1.001-1.035); Squamous Epithelial Cell,Urine <1 /hpf (0-4); Urobilinogen,Urine <2.0 mg/dL (<2.0); WBC 4.2 k/uL (3.8-10.6); WBC,Urine <1 /hpf (0-5)
[2024-02-28 21:41] LABS: ALT 15 U/L (4-49); AST 18 U/L (17-59); African American GFR (CKD) >90 (>60 ml/min/1.73 sqM); Albumin 3.5 g/dL (3.5-5.0); Alkaline Phosphatase 100 U/L (38-126); Anion Gap 4 mmol/L; Blood Urea Nitrogen 12 mg/dL (9-20); Carbon Dioxide 26 mmol/L (22-30); Chloride 99 mmol/L (98-107); Glucose 257 mg/dL (74-99); Non-African American GFR(CKD) >90 (>60 ml/min/1.73 sqM); Potassium 4.5 mmol/L (3.5-5.1); Sodium 129 mmol/L (137-145); Total Bilirubin 0.6 mg/dL (0.2-1.3)
[2024-02-28] MEDS: ACETAMINOPHEN TAB 500 MG TAB PO STA (21:53)
[2024-02-28] MEDS: SODIUM CHLORIDE 0.9% 500 ML 500 ML IV STA (21:55)
--- NOTE | 2024-02-28 22:02 | XR ---
EXAMINATION TYPE: XR chest 2V DATE OF EXAM: 02/28/2024 9:50 PM CLINICAL INDICATION:Male, 78 years old with history of r/o pna; [facility] COMPARISON: January 2020. TECHNIQUE: XR chest 2V Frontal and lateral views of the chest. FINDINGS: Lungs/Pleura: Scattered increased airspace opacities compared to prior superimposed on chronic change . Findings worse in the left lung base.e. There is no evidence of pleural effusion, focal consolidati on, or pneumothorax. Pulmonary vascularity: Unremarkable. Heart/mediastinum: Cardiomediastinal silhouette is unremarkable. Musculoskeletal: No acute osseous pathology. IMPRESSION: Multifocal airspace opacities superimposed on chronic interstitial change, findings worse in the left lung base, findings concerning for pneumonia
--- NOTE | 2024-02-28 23:26 | ED ---
Fever HPI - General Chief Complaint: Fever Stated Complaint: HIRAM Time Seen by Provider: 02/28/24 20:03 Source: patient, EMS, RN notes reviewed Mode of arrival: EMS Limitations: no limitations - History of Present Illness Initial Comments: 78-year-old male with a past medical history significant for A-fib on Xarelto, pulmonary fibrosis, and history of lymphoma presenting to the ED with complaints of fever, chills, patient reports he receives radiation which he reports is secondary to pulmonary fibrosis however upon further questioning states that there is a mass in his chest which is what he is receiving radiation for. Denies receiving chemotherapy. States last radiation 5 to 6 weeks ago. States today onset of cough and shortness of breath. Denies chest pain. Denies palpitations. No abdominal pain. No change in bowel or bladder habits. No other complaints at this time. - Related Data Home Medications Medication Instructions Recorded Confirmed Rivaroxaban [Xarelto] 20 mg PO HS 08/24/19 09/01/22 Rosuvastatin [Crestor] 10 mg PO DAILY 06/13/20 08/26/22 metFORMIN HCL [Glucophage] 500 mg PO DAILY 06/13/20 08/26/22 Nintedanib Esylate [Ofev] 150 mg PO BID 12/31/21 08/26/22 Metoprolol Succinate (ER) [Toprol 100 mg PO QAM 01/13/22 08/26/22 XL] HYDROcodone/APAP 7.5-325MG [[place] 1 tab PO Q6HR PRN 08/26/22 08/26/22 7.5-325] Previous Rx's Medication Instructions Recorded HYDROcodone/APAP 7.5-325MG [[place] 1 - 2 tab PO Q6H PRN #32 tab 09/01/22 7.5-325] Sennosides [Senokot] 2 tab PO DAILY PRN #60 tablet 09/01/22 Allergies Allergy/AdvReac Type Severity Reaction Status Date / Time No Known Allergies Allergy Verified 02/28/24 20:39 Review of Systems ROS Statement: Those systems with pertinent positive or pertinent negative responses have been documented in the HPI. ROS Other: All systems not noted in ROS Statement are negative. Past Medical History Past Medical History: Atrial Fibrillation, Atrial Flutter, Cancer, Diabetes Mellitus, Hyperlipidemia, Hypertension, Osteoarthritis (OA), Pneumonia, Respiratory Disorder, Sleep Apnea/CPAP/BIPAP Additional Past Medical History / Comment(s): NIDDM type II, nonhodgkins lymphoma, 2019 L lung cancerous mass and received chemo, pulmonary fibrosis, SOB with activity, pneumonias, EARL with Cpap, 1988 pericarditis, chronic low back pain. History of Any Multi-Drug Resistant Organisms: None Reported Past Surgical History: Adenoidectomy, Cardiac Ablation, Joint Replacement, Ortho pedic Surgery, Tonsillectomy Additional Past Surgical History / Comment(s): Colonoscopies/benign polypectomies in the past and recently on 01/02/22, cardiac ablation for aflutt er, bronchoscopy, bilateral knee arthroscopies and total bilateral knee arthroplasties, total R hip arthroplasty, port a cath since removed, nasal fracture with surgery, bilateral cataract removals. Past Anesthesia/Blood Transfusion Reactions: No Reported Reaction Past Psychological History: No Psychological Hx Reported Smoking Status: Former smoker Past Alcohol Use History: Occasional Past Drug Use History: None Reported - Past Family History Father Family Medical History: Cancer Additional Family Medical History / Comment(s): LUNG AND LIVER CANCER. Mother Family Medical History: Diabetes Mellitus General Exam Limitations: no limitations General appearance: alert Eye exam: Present: normal appearance Neck exam: Present: normal inspection Respiratory exam: Present: other (Diminished.). Absent: respiratory distress, accessory muscle use Cardiovascular Exam: Present: regular rate GI/Abdominal exam: Present: soft, normal bowel sounds. Absent: distended, tenderness, guarding, rebound, rigid Neurological exam: Present: alert, oriented X3 Skin exam: Present: warm, dry Course Vital Signs 02/28/24 20:16 Temperature 100.8 F H Pulse Rate 100 Respiratory 18 Rate Blood Pressure 143/69 O2 Sat by Pulse 96 Oximetry Medical Decision Making - Medical Decision Making Was pt. sent in by a medical professional or institution (, [place], [facility], urgent care, hospital, or half-way...) When possible be specific @ -No Did you speak to anyone other than the patient for history (EMS, parent, family, police, friend...)? What history was obtained from this source @ -No Did you review nursing and triage notes (agree or disagree)? Why? @ -I reviewed and agree with nursing and triage notes Were old charts reviewed (outside hosp., previous admission, EMS record, old EKG, old radiological studies, urgent care reports/EKG's, half-way records)? Report findings @ -No old charts were reviewed Differential Diagnosis (chest pain, altered mental status, abdominal pain women, abdominal pain men, vaginal bleeding, weakness, fever, dyspnea, syncope, headache, dizziness, GI bleed, back pain, seizure, CVA, palpatations, mental health, musculoskeletal)? @ -Differential Dyspnea: Coronary syndrome, arrhythmia, tamponade, asthma, COPD, pulmonary embolism, pneumonia, pneumothorax, pulmonary effusion, anaphylaxis, diabetic ketoacidosis, flailed chest, pulmonary contusion, diaphragmatic rupture, anemia, neuromuscular, this is not meant to be an all-inclusive list. EKG interpreted by me (3pts min.). @ -EKG interpreted me showing A-fib with a rapid ventricular rate [address]-T wave changes. QRS 129, QT/QTc 345/408. Patient currently denies chest pain. X-rays interpreted by me (1pt min.). @ -Chest x-ray interpreted me showing multifocal airspace opacities superimposed on chronic interstitial changes with findings worse in the left lung base concerning for pneumonia. CT interpreted by me (1pt min.). @ -Pending U/S interpreted by me (1pt. min.). @ -None done What testing was considered but not performed or refused? (CT, X-rays, U/S, labs)? Why? @ -None What meds were considered but not given or refused? Why? @ -None Did you discuss the management of the patient with other professionals (professionals i.e. , MANPREET, [facility], lab, RT, psych nurse, oncology social work, sprinkler truck driver, teacher, county health officer, case advocate)? Give summary @ -Case discussed with Dr. Conklin, who accepts admission with consults to oncology and pulmonology. Advises obtaining CT scan of the chest as well. Discussed with MARIZA Yanes in the ED. Aware of consult. Was smoking cessation discussed for >3mins.? @ -No Was critical care preformed (if so, how long)? @ -No Were there social determinants of health that impacted care today? How? (Homelessness, low income, unemployed, alcoholism, drug addiction, transportation, low edu. Level, literacy, decrease access to med. care, [facility], rehab)? @ -No Was there de-escalation of care discussed even if they declined (Discuss DNR or withdrawal of care, Hospice)? DNR status @ -No What co-morbidities impacted this encounter? (DM, HTN, Smoking, COPD, CAD, Cancer, CVA, ARF, Chemo, Hep., AIDS, mental health diagnosis, sleep apnea, morbid obesity)? @ -Pulmonary fibrosis, lymphoma Was patient admitted / discharged? Hospital course, mention meds given and route, prescriptions, significant lab abnormalities, going to OR and other pertinent info. @ -Admission 78-year-old male presenting to the ED with complaints of cough, shortness of breath noted to be febrile upon arrival laboratory studies reviewed. CBC. Chemistry panel largely unremarkable. Urine shows no evidence of infection. Serology panel negative. Chest x-ray does show multifocal opacities worse in the left lung base concerning for pneumonia. Upon arrival noted to be febrile at 100.8 with a heart rate of 100, blood pressure 143/69. O2 shows patient 96% with 3 L. Patient normally not on oxygen. Patient will be admitted antibiotics with consult to pulmonary and oncology. CT of the chest pending at this time. Undiagnosed new problem with uncertain prognosis? @ -No Drug Therapy requiring intensive monitoring for toxicity (Heparin, Nitro, Insulin, Cardizem)? @ -No Were any procedures done? @ -No Diagnosis/symptom? @ -Pneumonia, acute hypoxic respiratory failure Acute, or Chronic, or Acute on Chronic? @ -Acute Uncomplicated (without systemic symptoms) or Complicated (systemic symptoms)? @ -Complicated Side effects of treatment? @ -No Exacerbation, Progression, or Severe Exacerbation? @ -No Poses a threat to life or bodily function? How? (Chest pain, [place], [place], pneumonia, PE, COPD, DKA, ARF, appy, cholecystitis, CVA, Diverticulitis, Homicidal, Suicidal, threat to staff... and all critical care pts) @ -Unlikely at this time - Lab Data Result diagrams: 02/28/24 20:58 02/28/24 20:58 Lab Results 02/28/24 02/28/24 02/28/24 Range/Units 20:58 20:58 20:58 WBC 4.2 (3.8-10.6) k/uL RBC 4.81 (4.30-5.90) m/uL Hgb 15.5 (13.0-17.5) gm/dL Hct 50.6 (39.0-53.0) % MCV 105.2 H (80.0-100.0) fL MCH 32.3 (25.0-35.0) pg MCHC 30.7 L (31.0-37.0) g/dL RDW 13.7 (11.5-15.5) % Plt Count 125 L (150-450) k/uL MPV 8.5 Neutrophils % 87 % Lymphocytes % 7 % Monocytes % 4 % Eosinophils % 1 % Basophils % 0 % Neutrophils # 3.6 (1.3-7.7) k/uL Lymphocytes # 0.3 L (1.0-4.8) k/uL Monocytes # 0.2 (0-1.0) k/uL Eosinophils # 0.0 (0-0.7) k/uL Basophils # 0.0 (0-0.2) k/uL Macrocytosis Moderate Sodium 129 L (137-145) mmol/L Potassium 4.5 (3.5-5.1) mmol/L Chloride 99 (98-107) mmol/L Carbon Dioxide 26 (22-30) mmol/L Anion Gap 4 mmol/L BUN 12 (9-20) mg/dL Creatinine 0.65 L (0.66-1.25) mg/dL Est GFR (CKD-EPI)AfAm >90 (>60 ml/min/1.73 sqM) Est GFR (CKD-EPI)NonAf >90 (>60 ml/min/1.73 sqM) Glucose 257 H (74-99) mg/dL Plasma Lactic Acid Clarke (0.7-2.0) mmol/L Calcium 9.0 (8.4-10.2) mg/dL Total Bilirubin 0.6 (0.2-1.3) mg/dL AST 18 (17-59) U/L ALT 15 (4-49) U/L Alkaline Phosphatase 100 (38-126) U/L Total Protein 6.0 L (6.3-8.2) g/dL Albumin 3.5 (3.5-5.0) g/dL Urine Color Light Yellow Urine Appearance Clear (Clear) Urine pH 7.5 (5.0-8.0) Ur Specific [place] 1.021 (1.001-1.035) Urine Protein 1+ H (Negative) Urine Glucose (UA) 4+ H (Negative) Urine Ketones Negative (Negative) Urine Blood Negative (Negative) Urine Nitrite Negative (Negative) Urine Bilirubin Negative (Negative) Urine Urobilinogen <2.0 (<2.0) mg/dL Ur Leukocyte Esterase Negative (Negative) Urine RBC 3 (0-5) /hpf Urine WBC <1 (0-5) /hpf Ur Squamous Epith Cells <1 (0-4) /hpf Influenza Type A (PCR) (Not Detectd) Influenza Type B (PCR) (Not Detectd) RSV (PCR) (Not Detectd) SARS-CoV-2 (PCR) (Not Detectd) 02/28/24 02/28/24 Range/Units 20:58 22:06 WBC (3.8-10.6) k/uL RBC (4.30-5.90) m/uL Hgb (13.0-17.5) gm/dL Hct (39.0-53.0) % MCV (80.0-100.0) fL MCH (25.0-35.0) pg MCHC (31.0-37.0) g/dL RDW (11.5-15.5) % Plt Count (150-450) k/uL MPV Neutrophils % % Lymphocytes % % Monocytes % % Eosinophils % % Basophils % % Neutrophils # (1.3-7.7) k/uL Lymphocytes # (1.0-4.8) k/uL Monocytes # (0-1.0) k/uL Eosinophils # (0-0.7) k/uL Basophils # (0-0.2) k/uL Macrocytosis Sodium (137-145) mmol/L Potassium (3.5-5.1) mmol/L Chloride (98-107) mmol/L Carbon Dioxide (22-30) mmol/L Anion Gap mmol/L BUN (9-20) mg/dL Creatinine (0.66-1.25) mg/dL Est GFR (CKD-EPI)AfAm (>60 ml/min/1.73 sqM) Est GFR (CKD-EPI)NonAf (>60 ml/min/1.73 sqM) Glucose (74-99) mg/dL Plasma Lactic Acid Clarke 0.9 (0.7-2.0) mmol/L Calcium (8.4-10.2) mg/dL Total Bilirubin (0.2-1.3) mg/dL AST (17-59) U/L ALT (4-49) U/L Alkaline Phosphatase (38-126) U/L Total Protein (6.3-8.2) g/dL Albumin (3.5-5.0) g/dL Urine Color Urine Appearance (Clear) Urine pH (5.0-8.0) Ur Specific [place] (1.001-1.035) Urine Protein (Negative) Urine Glucose (UA) (Negative) Urine Ketones (Negative) Urine Blood (Negative) Urine Nitrite (Negative) Urine Bilirubin (Negative) Urine Urobilinogen (<2.0) mg/dL Ur Leukocyte Esterase (Negative) Urine RBC (0-5) /hpf Urine WBC (0-5) /hpf Ur Squamous Epith Cells (0-4) /hpf Influenza Type A (PCR) Not Detected (Not Detectd) Influenza Type B (PCR) Not Detected (Not Detectd) RSV (PCR) Not Detected (Not Detectd) SARS-CoV-2 (PCR) Not Detected (Not Detectd) Disposition Clinical Impression: Pneumonia Disposition: ADMITTED IP TO THIS HOSP Condition: Fair Referrals: Hoda Zamora MD [Primary Care Provider] - 1-2 days Time of Disposition: 23:30
[2024-02-28] MEDS ORDERED: PNEUMONIA PROTOCOL UTILIZED 1 EACH MISC PO PRN (23:45)
[2024-02-29] MEDS ORDERED: IBUPROFEN 400 MG TAB PO PRN (00:15)
[2024-02-29] MEDS: AZITHROMYCIN 500 MG in SODIUM CHLORIDE 0.9% 250 ML IVPB STA (00:36)
--- NOTE | 2024-02-29 01:39 | CT ---
EXAM: CT Angiography Chest With Intravenous Contrast CLINICAL HISTORY: ITS.REASON CT Reason: multifocal opacities worse in left lung base TECHNIQUE: Axial computed tomographic angiography images of the chest with intravenous contrast. CTDI is 27.97 mGy and DLP is 589.9 mGy-cm. This CT exam was performed using one or more of the following dose reduction techniques: automated exposure control, adjustment of the mA and/or kV according to patient size, and/or use of iterative reconstruction technique. MIP reconstructed images were created and reviewed. COMPARISON: No relevant prior studies available. FINDINGS: Pulmonary arteries: Unremarkable. No acute pulmonary embolism. Aorta: Atherosclerotic changes of the aorta. No thoracic aortic aneurysm. Lungs: Dependent airspace consolidations, consistent with multilobar pneumonia. These findings preferentially involve the peripheral and lower lung gomez. Pleural space: Unremarkable. No significant effusion. No pneumothorax. Heart: Cardiomegaly. No significant pericardial effusion. No evidence of RV dysfunction. Bones/joints: Degenerative changes of the spine. No acute fracture. No dislocation. Soft tissues: Unremarkable. Lymph nodes: Unremarkable. No enlarged lymph nodes. IMPRESSION: 1. No acute pulmonary embolism. 2. Dependent airspace consolidations, consistent with multilobar pneumonia. These findings preferentially involve the peripheral and lower lung gomez.
[2024-02-29] MEDS: ACETAMINOPHEN TAB 325 MG TAB PO PRN (05:00)
[2024-02-29] MEDS ORDERED: SENNOSIDES 8.6 MG TAB PO PRN (06:12)
[2024-02-29 06:21] LABS: Glucose,Whole Blood 316 mg/dL (70-110)
[2024-02-29] MEDS: INSULIN ASPART (NovoLOG) 100 UNIT/ML VIAL SQ SCH (06:21)
--- NOTE | 2024-02-29 06:21 | P.CNPUL ---
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 Patient previously diagnosed with non-Hodgkin's lymphoma, underwent 6 cycles of R-CHOP, with last treatment in 2019. Of note, patient recently states that he had a transthoracic biopsy of a different left lower lung mass at [facility] approximately 3 months ago, which was positive for lung cance r, and just finished 5 rounds of radiation. Denies any recent systemic chemotherapy. His oncologist Dr. Olivo. His primary care provider is Dr. Zamora. He presented to the emergency department late last night complaining of 24 hours of worsening shortness of breath, mostly nonproductive cough, and fevers. Denies sick contacts. Denies chest pain or hemoptysis. Denies nausea, vomiting, diarrhea. Initial chest x-ray demonstrated multifocal airspace opacity superimposed on chronic interstitial changes, findings were worrisome for pneumonia. A follow-up chest CTA did not show any acute pulmonary embolism. There was posttreatment changes in the left lung and volume loss. Masslike consolidation in the left lower lobe. Dependent air space consolidations, consistent with multilobar pneumonia. CBC: WBC count 4.2, hemoglobin 15.5, hematocrit 50.6, platelets 125. CMP: Sodium 129, potassium 4.5, chloride 99, serum bicarb 26, BUN 12, creatinine 0.65, glucose 257. LFTs not elevated. UA unremarkable for infection. Negative for influenza, RSV, COVID. Highest recorded fever and patient was 100.8 F. Patient is currently resting comfortably on 2 L/min nasal cannula, no acute distress. Appears nontoxic. Vital signs are stable. Review of Systems REVIEW OF SYSTEMS: CONSTITUTIONAL: Denies any recent significant weight loss or weight gain. EYES: Denies change in vision. EARS, NOSE, MOUTH, THROAT: Denies headaches, denies sore throat. CARDIOVASCULAR: Denies chest pain, palpitations or syncopal episodes. RESPIRATORY: See HPI GASTROINTESTINAL: Denies change in appetite, abdominal pain, nausea and vomiting, or diarrhea GENITOURINARY: Denies hematuria, denies infections. MUSKULOSKELETAL: Denies pain, denies swelling. INTEGUMENTARY: Denies rash, denies eczema. NEUROLOGICAL: Denies recent memory loss, no recent seizure activity. PSYCHIATRIC: Denies anxiety, denies depression. HEMATOLOGIC/LYMPHATIC: Denies anemia, denies enlarged lymph node Past Medical History Past Medical History: Atrial Fibrillation, Atrial Flutter, Cancer, Diabetes Mellitus, Hyperlipidemia, Hypertension, Osteoarthritis (OA), Pneumonia, Respiratory Disorder, Sleep Apnea/CPAP/BIPAP Additional Past Medical History / Comment(s): NIDDM type II, nonhodgkins lymphoma, 2019 L lung cancerous mass and received chemo, pulmonary fibrosis, SOB with activity, pneumonias, EARL with Cpap, 1988 pericarditis, chronic low back pain. History of Any Multi-Drug Resistant Organisms: None Reported Past Surgical History: Adenoidectomy, Cardiac Ablation, Joint Replacement, Orth opedic Surgery, Tonsillectomy Additional Past Surgical History / Comment(s): Colonoscopies/benign polypectomies in the past and recently on 01/02/22, cardiac ablation for aflut ter, bronchoscopy, bilateral knee arthroscopies and total bilateral knee arthroplasties, total R hip arthroplasty, port a cath since removed, nasal fracture with surgery, bilateral cataract removals. Past Anesthesia/Blood Transfusion Reactions: No Reported Reaction Past Psychological History: No Psychological Hx Reported Smoking Status: Former smoker Past Alcohol Use History: Occasional Past Drug Use History: None Reported - Past Family History Father Family Medical History: Cancer Additional Family Medical History / Comment(s): LUNG AND LIVER CANCER. Mother Family Medical History: Diabetes Mellitus Medications and Allergies Home Medications Medication Instructions Recorded Confirmed Type Rivaroxaban [Xarelto] 20 mg PO HS 08/24/19 09/01/22 History Rosuvastatin [Crestor] 10 mg PO DAILY 06/13/20 08/26/22 History metFORMIN HCL [Glucophage] 500 mg PO DAILY 06/13/20 08/26/22 History Nintedanib Esylate [Ofev] 150 mg PO BID 12/31/21 08/26/22 History Metoprolol Succinate (ER) [Toprol 100 mg PO QAM 01/13/22 08/26/22 History XL] HYDROcodone/APAP 7.5-325MG [[place] 1 tab PO Q6HR PRN 08/26/22 08/26/22 History 7.5-325] HYDROcodone/APAP 7.5-325MG [[place] 1 - 2 tab PO Q6H PRN #32 tab 09/01/22 Rx 7.5-325] Sennosides [Senokot] 2 tab PO DAILY PRN #60 tablet 09/01/22 Rx Allergies Allergy/AdvReac Type Severity Reaction Status Date / Time No Known Allergies Allergy Verified 02/28/24 20:39 Physical Exam Vitals: Vital Signs Temp Pulse Resp BP Pulse Ox 02/29/24 04:58 98.4 F 84 18 118/77 95 02/29/24 03:00 66 16 122/86 95 02/29/24 02:00 80 18 98/66 93 L 02/29/24 00:26 98.6 F 101 H 20 114/68 96 02/28/24 20:16 100.8 F H 100 18 143/69 96 Intake and Output 02/28/24 02/28/24 02/29/24 14:59 22:59 06:59 Other: Weight 120.202 kg GENERAL EXAM: Alert, 78-year-old white male, appearing stated age, fairly comfortable in no apparent distress. HEAD: Normocephalic and atraumatic EYES: Normal reaction of pupils, equal size. NOSE: Clear with pink turbinates. THROAT: No erythema or exudates. NECK: No masses, no JVD. CHEST: No chest wall deformity. LUNGS: Equal air entry with minimal bibasilar inspiratory crackles. No significant wheezing or rhonchi. On 2 L/min nasal cannula. No conversational dyspnea or accessory muscle use while at rest. CVS: S1 and S2 normal with no audible murmur, regular rhythm. No extra heart sounds ABDOMEN: No hepatosplenomegaly, active bowel sounds, no guarding or rigidity. SPINE: No scoliosis or deformity SKIN: No rashes CENTRAL NERVOUS SYSTEM: No focal deficits, tone is normal in all 4 extremities. EXTREMITIES: There is no peripheral edema, clubbing, or cyanosis. Peripheral pu lses are intact. Results - Laboratory Findings CBC and BMP: 02/28/24 20:58 02/28/24 20:58 Abnormal lab findings: Abnormal Labs 02/28/24 02/28/24 02/28/24 20:58 20:58 20:58 MCV 105.2 H MCHC 30.7 L Plt Count 125 L Lymphocytes # 0.3 L Sodium 129 L Creatinine 0.65 L Glucose 257 H Total Protein 6.0 L Urine Protein 1+ H Urine Glucose (UA) 4+ H - Diagnostic Findings Chest x-ray: image reviewed CT scan - chest: image reviewed Assessment and Plan Assessment: Suspect community-acquired bilateral pneumonia, Initial chest x-ray demonstrated multifocal airspace opacity superimposed on chronic interstitial changes, findings are worrisome for pneumonia. A follow-up chest CTA did not show any acute pulmonary embolism. There were posttreatment changes in the left lung and volume loss. Masslike consolidation in the left lower lobe. Dependent air space consolidations, consistent with multilobar pneumonia. Acute hypoxemic respiratory failure, secondary to above Reported recent diagnosis of lung cancer, currently undergoing radiation History of diffuse large B-cell lymphoma, status post chemotherapy with 6 cycles of R-CHOP, and last reported treatment was in 2019. History of pulmonary fibrosis, not currently on Ofev, reportedly could not afford treatment Chronic atrial fibrillation, currently with controlled ventricular response, and anticoagulated chronically on Xarelto History of hyperlipidemia History of hypertension Obesity, with a BMI of 34 kg/m Plan: Patient's medications, labs, imaging reviewed Continue supplemental oxygen to maintain oxygen saturation 92% or greater Continue empiric antibiotics. Obtain sputum sample if possible. Blood cultures pending. Check procalcitonin level. Viral panel negative for influenza, RSV, COVID. Oncology also consulted. Will continue to follow, and additional recommendations are forthcoming I have personally seen and examined the patient, performed the documentation and the assessment and plan as written. Number of minutes spent on the visit:20 Time with Patient: Greater than 30
[2024-02-29] MEDS: metFORMIN 500 MG TAB PO SCH ×2 (06:22→17:23)
[2024-02-29] MEDS: ATORVASTATIN 20 MG TAB PO SCH (08:27)
[2024-02-29] MEDS: methylPREDNISolone SOD SUCCI 40 MG/ML 1 ML VIAL IV SCH (08:28)
[2024-02-29] MEDS: NON FORMULARY DRUG (Nintedanib Esylate [Ofev] 150 MG Capsule) PO SCH (08:28)
[2024-02-29] MEDS: METOPROLOL SUCCINATE (ER) 100 MG TAB.ER.24H PO SCH (08:28)
[2024-02-29] MEDS: IPRATROPIUM-ALBUTEROL 3 ML NEB INHALATION SCH (08:30)
[2024-02-29] MEDS: BUDESONIDE 1 MG/2 ML NEBU INHALATION SCH (08:30)
[2024-02-29] MEDS: FORMOTEROL FUMARATE 20 MCG/2 ML NEBU INHALATION SCH (08:30)
[2024-02-29] MEDS: HYDROcodone/APAP 7.5-325MG 1 EACH TAB PO PRN (11:04)
[2024-02-29] MEDS: BUDESONIDE 0.5 MG/2 ML NEBU INHALATION SCH (11:04)
[2024-02-29 17:07] LABS: Glucose,Whole Blood 505 mg/dL (70-110)
--- NOTE | 2024-02-29 17:25 | P.CONS ---
History of Present Illness - Reason for Consult Consult date: 02/29/24 HX LUNG CANCER Requesting physician: Serafin Mendoza - Chief Complaint SOB - History of Present Illness Patient is a 78 year old male with a significant history of large B cell lymphoma. He is a patient of Dr. Olivo. He initially presented with persistent cough for about one year duration,he had a CXR and CT scan of chest on 08/18/2019 which revealed 8.0x3.8cm MAURICIO pleural based mass,small pleural effusion and prominent mediastinal nodes up to 1.6cm. On 08/26/2019,PET scan showed suspicious uptake in the MAURICIO mass and enlarged mediastinal nodes.a 1.7cm LLL nodule with hypermetabolic uptake. On 08/28/2019,he underwent navigational bronchoscopy,transbronchial biopsy,BAL,were negative. He went to [facility],had EBUS on 09/21/2019,biopsies were negative. On 10/11/2019, IR biopsy of left pleura was positive for B cell lymphoma,positive for CD20 and CD 45,positive for MUM1/RF4 and negative for CD 10,supporting non germinal center B cell lymphoma,KI-67 at least 60-70%,supporting the diagnosis of diffuse large B cell lymphoma. Bone marrow biopsy was negative. He had his first cycle of RCHOP at [facility] on 10/21/2019. PET scan on 12/08/2019 revealed significant improvement in his disease. Had one treatment of IT chemo in December 2019, but was unable to tolerate other LPs. He completed 6 cycles of RCHOP on 02/08/2020. Repeat scans he has showed no evidence of disease recurrence since completing treatment. In 2022, he was admitted to [facility] for chest pain, and had a CT scan of chest which revealed enlarging LLL lung nodule up to 2.1 cm. 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 He had a PET scan that showed suspicious uptake in LLL lung lesion. On 12/02/2023,he had CT guided biopsy of LLL lung mass at [facility],pathology was positive for squamous cell carcinoma. It was discussed with the patient and his that this is early stage disease. Ideally,surgery would be recommended, however, do to comorbidites unsure if he is a surgical candiditate. He was referred to Dr Gomez at [facility] for surgical evaluation. He was found to not be a surgical candidate and was recommended for SBRT. He completed 5 fractions of SBRT on 02/10/24. Patient presented to the emergency room with complaints of progressing shortness of breath as well as a productive cough with white sputum. Patient denies any known fever or chills. Denies nausea vomiting abdominal pain. On admission chest x-ray revealed multifocal airspace opacities superimposed on chronic interstitial changes, findings worse in the left lung base. Patient then underwent a CTA chest which showed no acute pulmonary embolism. Dependent airspace consolidations, consistent with multilobar pneumonia. Patient is been started on IV antibiotics. Viral panel negative. CBC showed WBC 4.2, ANC 3.6. Hemoglobin 15.5, platelets 125,000. Creatinine 0.65, GFR > 90. Tmax 100.8. SpO2 95% on 2 L. Hemodynamically stable. Review of Systems 10 point ROS is negative except as stated in the HPI Past Medical History Past Medical History: Atrial Fibrillation, Atrial Flutter, Cancer, Diabetes Mellitus, Hyperlipidemia, Hypertension, Osteoarthritis (OA), Pneumonia, Respiratory Disorder, Sleep Apnea/CPAP/BIPAP Additional Past Medical History / Comment(s): NIDDM type II, nonhodgkins lymphoma, 2019 L lung cancerous mass and received chemo, pulmonary fibrosis, SOB with activity, pneumonias, EARL with Cpap, 1988 pericarditis, chronic low back pain. History of Any Multi-Drug Resistant Organisms: None Reported Past Surgical History: Adenoidectomy, Cardiac Ablation, Joint Replacement, Orthopedic Surgery, Tonsillectomy Additional Past Surgical History / Comment(s): Colonoscopies/benign polypectomies in the past and recently on 01/02/22, cardiac ablation for aflutter, bronchoscopy, bilateral knee arthroscopies and total bilateral knee arthroplasties, total R hip arthroplasty, port a cath since removed, nasal fracture with surgery, bilateral cataract removals. Past Anesthesia/Blood Transfusion Reactions: No Reported Reaction Past Psychological History: No Psychological Hx Reported Smoking Status: Former smoker Past Alcohol Use History: Occasional Past Drug Use History: None Reported - Past Family History Father Family Medical History: Cancer Additional Family Medical History / Comment(s): LUNG AND LIVER CANCER. Mother Family Medical History: Diabetes Mellitus Medications and Allergies Home Medications Medication Instructions Recorded Confirmed Type Rivaroxaban [Xarelto] 20 mg PO HS 08/24/19 02/29/24 History Rosuvastatin [Crestor] 10 mg PO HS 06/13/20 02/29/24 History Eszopiclone [Lunesta] 2 mg PO HS 02/29/24 02/29/24 History Omeprazole [PriLOSEC] 20 mg PO DAILY 02/29/24 02/29/24 History metFORMIN HCL ER [Glucophage XR] 500 mg PO W/SUPPER 02/29/24 02/29/24 History Allergies Allergy/AdvReac Type Severity Reaction Status Date / Time No Known Allergies Allergy Verified 02/28/24 20:39 Physical Exam Vitals: Vital Signs Temp Pulse Resp BP Pulse Ox 02/29/24 12:07 99.9 F H 02/29/24 11:01 101.0 F H 86 20 141/78 92 L 02/29/24 10:28 81 20 148/78 93 L 02/29/24 08:51 91 18 02/29/24 08:41 90 18 02/29/24 08:31 89 18 95 02/29/24 06:00 66 18 137/93 97 02/29/24 04:58 98.4 F 84 18 118/77 95 02/29/24 03:00 66 16 122/86 95 02/29/24 02:00 80 18 98/66 93 L 02/29/24 00:26 98.6 F 101 H 20 114/68 96 02/28/24 20:16 100.8 F H 100 18 143/69 96 Intake and Output 02/28/24 02/29/24 02/29/24 22:59 06:59 14:59 Other: Weight 120.202 kg - Constitutional General appearance: average body habitus, no acute distress - EENT Eyes: anicteric sclerae, EOMI ENT: hearing grossly normal - Respiratory Respiratory: bilateral: wheezing - Cardiovascular Rhythm: regular - Gastrointestinal General gastrointestinal: soft, no tenderness - Integumentary Integumentary: no cyanotic - Neurologic Neurologic: CNII-XII intact - Musculoskeletal Musculoskeletal: strength equal bilaterally - Psychiatric Psychiatric: A&O x's 3 Results CBC & Chem 7: 02/28/24 20:58 02/28/24 20:58 Labs: Abnormal Lab Results - Last 24 Hours (Table) 02/28/24 02/28/24 02/28/24 Range/Units 20:58 20:58 20:58 MCV 105.2 H (80.0-100.0) fL MCHC 30.7 L (31.0-37.0) g/dL Plt Count 125 L (150-450) k/uL Lymphocytes # 0.3 L (1.0-4.8) k/uL Sodium 129 L (137-145) mmol/L Creatinine 0.65 L (0.66-1.25) mg/dL Glucose 257 H (74-99) mg/dL POC Glucose (mg/dL) (70-110) mg/dL Total Protein 6.0 L (6.3-8.2) g/dL Procalcitonin (0.02-0.09) ng/mL Urine Protein 1+ H (Negative) Urine Glucose (UA) 4+ H (Negative) 02/28/24 02/29/24 Range/Units 20:58 06:19 MCV (80.0-100.0) fL MCHC (31.0-37.0) g/dL Plt Count (150-450) k/uL Lymphocytes # (1.0-4.8) k/uL Sodium (137-145) mmol/L Creatinine (0.66-1.25) mg/dL Glucose (74-99) mg/dL POC Glucose (mg/dL) 316 H (70-110) mg/dL Total Protein (6.3-8.2) g/dL Procalcitonin 0.16 H (0.02-0.09) ng/mL Urine Protein (Negative) Urine Glucose (UA) (Negative) Chest x-ray: report reviewed CT scan - chest: report reviewed Assessment and Plan (1) Squamous cell carcinoma lung Current Visit: Yes Status: Acute Priority: Medium Code(s): C34.90 - MALIGNANT NEOPLASM OF UNSP PART OF UNSP BRONCHUS OR LUNG SNOMED Code(s): 986283668 (2) Pneumonia Current Visit: Yes Status: Acute Priority: High Code(s): J18.9 - PNEUMONIA, UNSPECIFIED ORGANISM SNOMED Code(s): 239959323 Plan: Pneumonia, SOB: Presented with complaints of progressing shortness of breath and productive cou gh. -On admission chest x-ray revealed multifocal airspace opacities superimposed on chronic interstitial changes, findings worse in the left lung base -CTA chest showed no acute pulmonary embolism. Dependent airspace consolidations, consistent with multilobar pneumonia. -IV antibiotics, steroids and bronchodilators started -Pulmonology following -White counts stable, WBC 4.2, ANC 3.6 -Will check immunoglobulins, if IgG low will add IVIG Squamous cell carcinoma of lung: -Full oncological history in HPI. Recent diagnosis -Early stage disease. Was not felt to be a surgical candidate. -Completed 5 fractions of SBRT on 02/10/24 -Plan to continue f/u with oncology and rad onc Dr Attests: I have performed H&P and developed impression and plan of care for patient, discussed with dictator. I agree with dictated note, documented as a scribe
[2024-02-29 18:04] LABS: Glucose,Whole Blood 484 mg/dL (70-110)
[2024-02-29 18:59] LABS: Glucose,Whole Blood 481 mg/dL (70-110)
[2024-02-29 19:57] LABS: Glucose,Whole Blood 450 mg/dL (70-110)
[2024-02-29] MEDS: RIVAROXABAN 20 MG TAB PO SCH (21:28)
[2024-02-29] MEDS: AZITHROMYCIN 500 MG TAB PO SCH (21:28)
--- NOTE | 2024-02-29 22:58 | P.HPIM ---
History of Present Illness H&P Date: 02/29/24 HISTORY OF PRESENT ILLNESS: 78-year-old with active medical history of atrial fibrillation/a flutter, type 2 diabetes, hypertension, hyperlipidemia, recurrent pneumonia, obstructive sleep apnea, non-Hodgkin lymphoma also was diagnosed in 2019. Also diagnosed few weeks ago of left-sided lung cancer via transthoracic biopsy at [facility] was diagnosed with lung cancer and did 5 cycle of radiation therapy with no chemo seen Dr. Olivo oncology. Known to have history of pulmonary fibrosis and shortness of breath required oxygen sometimes with recurrent pne umonitis. Also had obstructive sleep apnea on CPAP on a regular basis. History of pericarditis back in 1988, chronic history of lower back pain. Patient had ablation therapy for A-fib in the past also had total joint placement with bilateral knee arthroscopy right total hip arthroplasty who live independent and able to manage his medical history seen multi subspecialist with mean oncology, pulmonary and cardiology. You presented to the emergency department very late night on 02/28/2024 complaining of fever chills had radiation therapy 5 to 6 weeks ago for pulmonary mass in the left side and has been having slight shortness of breath since medicine fever chills or more symptoms consistent with worsening shortness of breath developed in the last 48 hours. Admission with slightly more cough productive phlegm. In the primary to the emergency department where was seen and evaluated his white blood cell was normal with low platelet at 1 25,000 has mild hyponatremia with sodium of 129. Urine was negative and respiratory culture came back negative as well. And having severe fibrosis on chest x-ray with multifocal airspace opacification superimposed on chronic interstitial c hanges finding most likely from worsening pneumonia along with pulmonary fibrosis. Furthermore CTA was done that showed no acute pulmonary embolism but dependent airspace consolidation consistent with multilobar pneumonia. Sputum for Gram stain and culture be done patient was started on Rocephin and azithromycin will consult pulmonary and admit patient to the hospital. REVIEW OF SYSTEMS: CONSTITUTIONAL: Mildly overweight in mild respiratory distress has been having mild hypoxia. EYES: No icterus sclerae, no conjunctivitis. EARS, NOSE, MOUTH, THROAT, and FACE: No sore throat, lymphadenopathy, carotid bruits or deformity. RESPIRATORY: Positive shortness of breath cough wheezes and fever. CARDIOVASCULAR: No CP, Palpitation, PND, Orthopnea, or angina. GASTROINTESTINAL: No Abd pain, positive nausea without vomiting, no Diarrhea or constipation, No GI Bleed, no distention or masses. GENITOURINARY: Negative for Hematuria or UTI, no kidney stones. INTEGUMENT/BREAST: Negative for any muscular injury with mild osteoarthritis.. Generalized arthralgia HEMATOLOGIC/LYMPHATIC: Negative for bleed or purpura. Chronic anemia MUSCULOSKELTAL: Negative for Myalgia or arthralgia. NEURLOGICAL: No LOC, Sz or syncope, blurred vision dizziness or abnormality.. BEHAVIORAL/PSYCH: Negative. ENDOCRINE: Negative. PHYSICAL EXAMINATION: General Appearance: Alert, cooperative, having low-grade temperature of mild distress Neck HEENT: Supple, no lymphadenopathy, no thyroid enlargement, no carotid bruits. Lungs: Decreased breath sound bilaterally with fine rhonchi positive mild crackles in the bases with mild expiratory wheezes. Chest Wall: Decreased with deep inspiration no tenderness and no deformity was found on exam, no costochondral pain or discomfort. Heart: Irregular rate and rhythm, S1, S2 +3 with mild systolic murmur no JVD. Back: Symmetric, no curvature, ROM normal, no CVA tenderness. Mild scoliosis Abdomen: Soft, non-tender, bowel sounds active all four quadrants, no masses, no organomegaly. Extremities: Extremities normal, atraumatic, no cyanosis or edema. Pulses: 2+ and symmetric. Skin: Skin color, texture, tugor normal, no rashes or lesions. Neurologic: Alert oriented x3 cranial nerves II through XII intact, no motor deficit, no abnormal balance or gait. ASSESSMENT AND PLAN: _Mild respiratory failure secondary to combination of multilobar pneumonia along with pulmonary fibrosis. Continue O2, mixup with drop treatment and Solu- Medrol. _Multilobar pneumonia culture will be done, consult pulmonary continue current antibiotics and if culture showed anything specific will change antibiotic accordingly. _Pulmonary fibrosis: Has not been symptomatic in between but underlying problem with lung mass and radiation recently could not reason His infection become worse. _Pulmonary mass: Postradiation close seen oncology. _A-fib/flutter with RVR post ablation therapy, still on Xarelto and metoprolol. _History of non-Hodgkin lymphoma: Has been seeing oncology more regular basis. _Type 2 diabetes: Continue metformin, Accu-Chek with sliding scale coverage to be done. _Hyperlipidemia: Remain on Crestor 10 mg nodule _Mild hyponatremia most likely reactive to his multilobar pneumonia as a low- grade of SIADH, continue gentle hydration and watch his sodium in the next 24 hours. _Obesity with body mass index of 34%. _GI prophylaxis: Patient will be on pantoprazole 40 mg daily. DVT prophylaxis: Still on Xarelto._ CODE STATUS: Full code. Admit patient to the inpatient service for more than 2 night stay. Past Medical History Past Medical History: Atrial Fibrillation, Atrial Flutter, Cancer, Diabetes Mellitus, Hyperlipidemia, Hypertension, Osteoarthritis (OA), Pneumonia, Respiratory Disorder, Sleep Apnea/CPAP/BIPAP Additional Past Medical History / Comment(s): NIDDM type II, nonhodgkins lymphoma, 2019 L lung cancerous mass and received chemo, pulmonary fibrosis, SOB with activity, pneumonias, EARL with Cpap, 1988 pericarditis, chronic low back pain. History of Any Multi-Drug Resistant Organisms: None Reported Past Surgical History: Adenoidectomy, Cardiac Ablation, Joint Replacement, Orthopedic Surgery, Tonsillectomy Additional Past Surgical History / Comment(s): Colonoscopies/benign polypectomies in the past and recently on 01/02/22, cardiac ablation for aflutter, bronchoscopy, bilateral knee arthroscopies and total bilateral knee arthroplasties, total R hip arthroplasty, port a cath since removed, nasal fract ure with surgery, bilateral cataract removals. Past Anesthesia/Blood Transfusion Reactions: No Reported Reaction Past Psychological History: No Psychological Hx Reported Smoking Status: Former smoker Past Alcohol Use History: Occasional Past Drug Use History: None Reported - Past Family History Father Family Medical History: Cancer Additional Family Medical History / Comment(s): LUNG AND LIVER CANCER. Mother Family Medical History: Diabetes Mellitus Medications and Allergies Home Medications Medication Instructions Recorded Confirmed Type Rivaroxaban [Xarelto] 20 mg PO HS 08/24/19 09/01/22 History Rosuvastatin [Crestor] 10 mg PO DAILY 06/13/20 08/26/22 History metFORMIN HCL [Glucophage] 500 mg PO DAILY 06/13/20 08/26/22 History Nintedanib Esylate [Ofev] 150 mg PO BID 12/31/21 08/26/22 History Metoprolol Succinate (ER) [Toprol 100 mg PO QAM 01/13/22 08/26/22 History XL] HYDROcodone/APAP 7.5-325MG [[place]ell 1 tab PO Q6HR PRN 08/26/22 08/26/22 History 7.5-325] HYDROcodone/APAP 7.5-325MG [[place]ell 1 - 2 tab PO Q6H PRN #32 tab 09/01/22 Rx 7.5-325] Sennosides [Senokot] 2 tab PO DAILY PRN #60 tablet 09/01/22 Rx Allergies Allergy/AdvReac Type Severity Reaction Status Date / Time No Known Allergies Allergy Verified 02/28/24 20:39 Physical Exam Vitals: Vital Signs Temp Pulse Resp BP Pulse Ox 02/29/24 04:58 98.4 F 84 18 118/77 95 02/29/24 03:00 66 16 122/86 95 02/29/24 02:00 80 18 98/66 93 L 02/29/24 00:26 98.6 F 101 H 20 114/68 96 02/28/24 20:16 100.8 F H 100 18 143/69 96 Intake and Output 02/28/24 02/28/24 02/29/24 14:59 22:59 06:59 Other: Weight 120.202 kg Results CBC & Chem 7: 02/28/24 20:58 02/28/24 20:58 Labs: Abnormal Lab Results - Last 24 Hours (Table) 02/28/24 02/28/24 02/28/24 Range/Units 20:58 20:58 20:58 MCV 105.2 H (80.0-100.0) fL MCHC 30.7 L (31.0-37.0) g/dL Plt Count 125 L (150-450) k/uL Lymphocytes # 0.3 L (1.0-4.8) k/uL Sodium 129 L (137-145) mmol/L Creatinine 0.65 L (0.66-1.25) mg/dL Glucose 257 H (74-99) mg/dL Total Protein 6.0 L (6.3-8.2) g/dL Urine Protein 1+ H (Negative) Urine Glucose (UA) 4+ H (Negative)
[2024-03-01 00:54] LABS: Glucose,Whole Blood 318 mg/dL (70-110)
[2024-03-01 06:19] LABS: Glucose,Whole Blood 366 mg/dL (70-110)
[2024-03-01 07:38] LABS: HCT 39.6 % (39.0-53.0); Hypochromasia Slight; MCH 32.8 pg (25.0-35.0); MCHC 30.3 g/dL (31.0-37.0); MCV 108.2 fL (80.0-100.0); Macrocytosis Moderate; Mean Platelet Volume 8.6; Platelet Count 186 k/uL (150-450); RBC 3.66 m/uL (4.30-5.90); RDW 13.4 % (11.5-15.5); WBC 5.7 k/uL (3.8-10.6)
[2024-03-01 07:49] LABS: ALT 15 U/L (4-49); AST 15 U/L (17-59); African American GFR (CKD) >90 (>60 ml/min/1.73 sqM); Albumin 3.5 g/dL (3.5-5.0); Alkaline Phosphatase 100 U/L (38-126); Anion Gap 7 mmol/L; Blood Urea Nitrogen 18 mg/dL (9-20); Calcium 9.1 mg/dL (8.4-10.2); Carbon Dioxide 25 mmol/L (22-30); Chloride 101 mmol/L (98-107); Glucose 363 mg/dL (74-99); Magnesium 1.9 mg/dL (1.6-2.3); Non-African American GFR(CKD) >90 (>60 ml/min/1.73 sqM); Potassium 5.1 mmol/L (3.5-5.1); Sodium 133 mmol/L (137-145); Total Bilirubin 0.4 mg/dL (0.2-1.3)
--- NOTE | 2024-03-01 11:20 | P.PN ---
Subjective Progress Note Date: 03/01/24 Principal diagnosis: Shortness of breath. Patient is a 78-year-old white male with past medical history significant for chronic atrial fibrillation, diabetes mellitus, hyperlipidemia, hypertension, pulmonary fibrosis, diffuse large B-cell lymphoma status post chemo, among other things. Patient previously diagnosed with non-Hodgkin's lymphoma, underwent 6 cycles of R-CHOP, with last treatment in 2019. Of note, patient recently states that he had a transthoracic biopsy of a different left lower lung mass at [facility] approximately 3 months ago, which was positive for lung cancer, and just finished 5 rounds of radiation. Denies any recent systemic chemotherapy. His oncologist Dr. Olivo. His primary care provider is Dr. Zamora. He presented to the emergency department late last night complaining of 24 hours of worsening shortness of breath, mostly nonproductive cough, and fevers. Denies sick contacts. Denies chest pain or hemoptysis. Denies nausea, vomiting, diarrhea. Initial chest x-ray demonstrated multifocal airspace opacity superimposed on chronic interstitial changes, findings were worrisome for pneumonia. A follow-up chest CTA did not show any acute pulmonary embolism. There was posttreatment changes in the left lung and volume loss. Masslike consolidation in the left lower lobe. Dependent air space consolidations, consistent with multilobar pneumonia. CBC: WBC count 4.2, hemoglobin 15.5, hematocrit 50.6, platelets 125. CMP: Sodium 129, potassium 4.5, chloride 99, serum bicarb 26, BUN 12, creatinine 0.65, glucose 257. LFTs not elevated. UA unremarkable for infection. Negative for influenza, RSV, COVID. Highest recorded fever and patient was 100.8 F. Patient is currently resting comfortably on 2 L/min nasal cannula, no acute distress. Appears nontoxic. Vital signs are stable. Progress note dated March 01, 2024. 78-year-old male seen yesterday in consultation. He has a history of atrial fibrillation, diffuse large B-cell lymphoma, interstitial lung disease/pulmonary fibrosis, and more recently, early stage lung cancer, status post SBRT. The patient was admitted with a diagnosis of possible pneumonia. He is seen today in the observation unit, room 157. His procalcitonin level was 0.16. The patient is on a couple liters of oxygen. He is getting azithromycin, and Rocephin, Solu-Medrol, albuterol sulfate, ipratropium bromide, as well as budesonide, and formoterol. He is resting comfortably, and feels a bit better today than he did yesterday. Currently, white count 5.7, hemoglobin 12, hematocrit 39.6, platelet count 186,000. Sodium 133, potassium 5.1, chlorides 101, CO2 25, BUN 18, creatinine 0.67. Objective - Vital Signs Vital signs: Vital Signs Temp 98.3 F 03/01/24 08:00 Pulse 71 03/01/24 08:12 Resp 17 03/01/24 08:00 BP 125/69 03/01/24 08:00 Pulse Ox 96 03/01/24 08:00 FiO2 Intake & Output 02/29/24 03/01/24 03/01/24 18:59 06:59 18:59 Intake Total 318 480 Balance 318 480 Weight 120.202 kg Intake: Oral 318 480 Other: Voiding Method Toilet Toilet # Voids 5 - Exam No acute distress, oriented 3. No respiratory distress. 2 L saturation is 96%. HEENT examination is grossly unremarkable. Mucous membranes are moist. No oral lesions. Neck supple. Full range of motion. No adenopathy thyromegaly or neck vein distention. Cardiovascular examination reveals regular rhythm rate. S1-S2 normal. No S3 or S4. No discernible murmur noted. Heart rate 71 bpm. Lungs reveal scattered bilateral rhonchi. No wheezes or crackles. Breath sounds equal. 2 L saturation is 96%. Abdomen soft bowel sounds are heard. No masses or tenderness. Extremities are intact. No cyanosis clubbing or edema. Skin is without rash or lesion. Neurologic examination is brief but nonfocal. - Labs CBC & Chem 7: 03/01/24 06:43 03/01/24 06:43 Labs: Abnormal Lab Results - Last 24 Hours (Table) 02/28/24 02/29/24 02/29/24 Range/Units 13:13 17:01 18:02 RBC (4.30-5.90) m/uL Hgb (13.0-17.5) gm/dL MCV (80.0-100.0) fL MCHC (31.0-37.0) g/dL Sodium (137-145) mmol/L Glucose (74-99) mg/dL POC Glucose (mg/dL) 505 H* 484 H (70-110) mg/dL AST (17-59) U/L Total Protein (6.3-8.2) g/dL IgG 595.0 L (700.0-1600.0) mg/dL IgM 342.0 H (40.0-280.0) mg/dL 02/29/24 02/29/24 03/01/24 Range/Units 18:57 19:56 00:53 RBC (4.30-5.90) m/uL Hgb (13.0-17.5) gm/dL MCV (80.0-100.0) fL MCHC (31.0-37.0) g/dL Sodium (137-145) mmol/L Glucose (74-99) mg/dL POC Glucose (mg/dL) 481 H 450 H 318 H (70-110) mg/dL AST (17-59) U/L Total Protein (6.3-8.2) g/dL IgG (700.0-1600.0) mg/dL IgM (40.0-280.0) mg/dL 03/01/24 03/01/24 03/01/24 Range/Units 06:15 06:43 06:43 RBC 3.66 L (4.30-5.90) m/uL Hgb 12.0 L D (13.0-17.5) gm/dL MCV 108.2 H (80.0-100.0) fL MCHC 30.3 L (31.0-37.0) g/dL Sodium 133 L (137-145) mmol/L Glucose 363 H (74-99) mg/dL POC Glucose (mg/dL) 366 H (70-110) mg/dL AST 15 L (17-59) U/L Total Protein 6.0 L (6.3-8.2) g/dL IgG (700.0-1600.0) mg/dL IgM (40.0-280.0) mg/dL Assessment and Plan Assessment: Suspect community-acquired bilateral pneumonia, Initial chest x-ray demonstrated multifocal airspace opacity superimposed on chronic interstitial changes, findings are worrisome for pneumonia. A follow-up chest CTA did not show any acute pulmonary embolism. There were posttreatment changes in the left lung and volume loss. Masslike consolidation in the left lower lobe. Dependent air space consolidations, consistent with multilobar pneumonia. Acute hypoxemic respiratory failure, secondary to above. Early stage non-small cell lung cancer/squamous cell cancer, left lower lobe, S/P SBRT. History of diffuse large B-cell lymphoma, status post chemotherapy with 6 cycles of R-CHOP. History of pulmonary fibrosis, not currently on Ofev. Chronic atrial fibrillation, currently with controlled ventricular response. History of hyperlipidemia. History of hypertension. Obesity, with a BMI of 34 kg/m. Plan: Plan dated March 01, 2024. The patient is seen today in room 157. The patient is resting comfortably on a couple liters. The patient is receiving breathing treatments, corticosteroids, and antibiotics in the form of azithromycin, and Rocephin. His procalcitonin level was a bit elevated at 0.16. The patient is feeling a bit better today. The patient has a history of treated diffuse large B-cell lymphoma, apparent pulmonary fibrosis, as well as recent diagnosis of early stage non-small cell lung cancer, status post SBRT. I have not seen the patient since January 2021. Add itional recommendations and suggestions are forthcoming. Prognosis is guarded. Time with Patient: Less than 30
[2024-03-01 11:55] LABS: Glucose,Whole Blood 497 mg/dL (70-110)
[2024-03-01 16:42] LABS: Glucose,Whole Blood 414 mg/dL (70-110)
[2024-03-01] MEDS ORDERED: NON FORMULARY DRUG (Metformin Hcl Er 500 MG Tab.Er.24h) PO SCH (17:30)
[2024-03-01] MEDS: metFORMIN 500 MG TAB PO SCH (18:05)
[2024-03-01] MEDS: INSULIN ASPART (NovoLOG) 100 UNIT/ML VIAL SQ SCH (18:23)
--- NOTE | 2024-03-01 18:39 | P.PN ---
Subjective Progress Note Date: 03/01/24 No acute events. Patient reporting improvement in breathing/shortness of breath. Patient been afebrile x 24 hours. SpO2 95% on 2 L. Counts stable, WBC 5.7, hemoglobin 12.0, platelets 186,000 Objective - Vital Signs Vital signs: Vital Signs Temp 98.3 F 03/01/24 08:00 Pulse 103 H 03/01/24 11:47 Resp 17 03/01/24 08:00 BP 125/69 03/01/24 08:00 Pulse Ox 94 L 03/01/24 11:51 FiO2 Intake & Output 02/29/24 03/01/24 03/01/24 18:59 06:59 18:59 Intake Total 318 480 Balance 318 480 Weight 120.202 kg Intake: Oral 318 480 Other: Voiding Method Toilet Toilet # Voids 5 - Constitutional General appearance: Present: average body habitus, no acute distress - EENT Eyes: Present: anicteric sclerae, EOMI ENT: Present: hearing grossly normal - Respiratory Respiratory: bilateral: rhonchi - Cardiovascular Rhythm: regular Heart sounds: normal: S1, S2 - Integumentary Integumentary: Absent: cyanotic - Neurologic Neurologic: Present: CNII-XII intact - Musculoskeletal Musculoskeletal: Present: strength equal bilaterally - Psychiatric Psychiatric: Present: A&O x's 3 - Labs CBC & Chem 7: 03/01/24 06:43 03/01/24 06:43 Labs: Abnormal Lab Results - Last 24 Hours (Table) 02/28/24 02/29/24 02/29/24 Range/Units 13:13 17:01 18:02 RBC (4.30-5.90) m/uL Hgb (13.0-17.5) gm/dL MCV (80.0-100.0) fL MCHC (31.0-37.0) g/dL Sodium (137-145) mmol/L Glucose (74-99) mg/dL POC Glucose (mg/dL) 505 H* 484 H (70-110) mg/dL AST (17-59) U/L Total Protein (6.3-8.2) g/dL IgG 595.0 L (700.0-1600.0) mg/dL IgM 342.0 H (40.0-280.0) mg/dL 02/29/24 02/29/24 03/01/24 Range/Units 18:57 19:56 00:53 RBC (4.30-5.90) m/uL Hgb (13.0-17.5) gm/dL MCV (80.0-100.0) fL MCHC (31.0-37.0) g/dL Sodium (137-145) mmol/L Glucose (74-99) mg/dL POC Glucose (mg/dL) 481 H 450 H 318 H (70-110) mg/dL AST (17-59) U/L Total Protein (6.3-8.2) g/dL IgG (700.0-1600.0) mg/dL IgM (40.0-280.0) mg/dL 03/01/24 03/01/24 03/01/24 Range/Units 06:15 06:43 06:43 RBC 3.66 L (4.30-5.90) m/uL Hgb 12.0 L D (13.0-17.5) gm/dL MCV 108.2 H (80.0-100.0) fL MCHC 30.3 L (31.0-37.0) g/dL Sodium 133 L (137-145) mmol/L Glucose 363 H (74-99) mg/dL POC Glucose (mg/dL) 366 H (70-110) mg/dL AST 15 L (17-59) U/L Total Protein 6.0 L (6.3-8.2) g/dL IgG (700.0-1600.0) mg/dL IgM (40.0-280.0) mg/dL 03/01/24 Range/Units 11:53 RBC (4.30-5.90) m/uL Hgb (13.0-17.5) gm/dL MCV (80.0-100.0) fL MCHC (31.0-37.0) g/dL Sodium (137-145) mmol/L Glucose (74-99) mg/dL POC Glucose (mg/dL) 497 H (70-110) mg/dL AST (17-59) U/L Total Protein (6.3-8.2) g/dL IgG (700.0-1600.0) mg/dL IgM (40.0-280.0) mg/dL Assessment and Plan (1) Squamous cell carcinoma lung Current Visit: Yes Status: Acute Priority: Medium Code(s): C34.90 - MALIGNANT NEOPLASM OF UNSP PART OF UNSP BRONCHUS OR LUNG SNOMED Code(s): 129323037 (2) Pneumonia Current Visit: Yes Status: Acute Priority: High Code(s): J18.9 - PNEUMONIA, UNSPECIFIED ORGANISM SNOMED Code(s): 102216551 Plan: Pneumonia, SOB: Presented with complaints of progressing shortness of breath and productive cough. -On admission chest x-ray revealed multifocal airspace opacities superimposed on chronic interstitial changes, findings worse in the left lung base -CTA chest showed no acute pulmonary embolism. Dependent airspace consolidations, consistent with multilobar pneumonia. -Continues IV antibiotics, steroids and bronchodilators -Pulmonology following -White counts stable, WBC 5.7, ANC 3.6 -IgG 595. Pt reporting improvement in breathing, afebrile x 24 hours. No IVIG necessary at this time Squamous cell carcinoma of lung: -Full oncological history in HPI. Recent diagnosis -Early stage disease. Was not felt to be a surgical candidate. -Completed 5 fractions of SBRT on 02/10/24 -Plan to continue f/u with oncology and rad onc
[2024-03-01 21:05] LABS: Glucose,Whole Blood 402 mg/dL (70-110)
[2024-03-01] MEDS: TEMAZEPAM 15 MG CAP PO SCH (22:09)
[2024-03-01 23:23] LABS: Glucose,Whole Blood 348 mg/dL (70-110)
[2024-03-01] MEDS: INSULIN ASPART (NovoLOG) 100 UNIT/ML VIAL SQ ONE (23:57)
--- NOTE | 2024-03-02 05:10 | P.PN ---
Subjective Progress Note Date: 03/01/24 HISTORY OF PRESENT ILLNESS: 78-year-old with active medical history of atrial fibrillation/a flutter, type 2 diabetes, hypertension, hyperlipidemia, recurrent pneumonia, obstructive sleep apnea, non-Hodgkin lymphoma also was diagnosed in 2019. Also diagnosed few weeks ago of left-sided lung cancer via transthoracic biopsy at [facility] was diagnosed with lung cancer and did 5 cycle of radiation therapy with no chemo seen Dr. Pallavi alfredo. Known to have history of pulmonary fibrosis and shortness of breath required oxygen sometimes with recurrent pneumonitis. Also had obstructive sleep apnea on CPAP on a regular basis. History of pericarditis back in 1988, chronic history of lower back pain. Patient had ablation therapy for A-fib in the past also had total joint placement with bilateral knee arthroscopy right total hip arthroplasty who live independent and able to manage his medical history seen multi subspecialist with mean oncology, pulmonary and cardiology. You presented to the emergency department very late night on 02/28/2024 com plaining of fever chills had radiation therapy 5 to 6 weeks ago for pulmonary mass in the left side and has been having slight shortness of breath since medicine fever chills or more symptoms consistent with worsening shortness of breath developed in the last 48 hours. Admission with slightly more cough productive phlegm. In the primary to the emergency department where was seen and evaluated his white blood cell was normal with low platelet at 1 25,000 has mild hyponatremia with sodium of 129. Urine was negative and respiratory culture came back negative as well. And having severe fibrosis on chest x-ray with multifocal airspace opacification superimposed on chronic interstitial changes finding most likely from worsening pneumonia along with pulmonary fibrosis. Furthermore CTA was done that showed no acute pulmonary embolism but dependent airspace consolidation consistent with multilobar pneumonia. Sputum for Gram stain and culture be done patient was started on Rocephin and mehran thromycin will consult pulmonary and admit patient to the hospital. 03/01/2024:The patient was resting comfortably in bed still on O2 between 2 to 3 L nasal cannula to keep his pulse ox above 90 percentile, his procalcitonin was mildly elevated today, still on double antibiotic for multilobar pneumonia he is still on Solu-Medrol 40 mg every 8 hours, he is not running fever or chills today with temperature finally stabilized. White blood cell at 5.7 only blood sugar still mildly elevated as an effect of the steroid. He is seen pulmonary along with oncology recommend to continue current medication management. Until this morning I believe he still planning to be transferred to [facility] for better management for his squamous cell carcinoma of the lung along with being close to his oncologist. Also with his pulmonary fibrosis making all this picture quite bit more complex than expected. But I still see improvement compared to yesterday. REVIEW OF SYSTEMS: CONSTITUTIONAL: Mildly overweight in mild respiratory distress has been having mild hypoxia. EYES: No icterus sclerae, no conjunctivitis. EARS, NOSE, MOUTH, THROAT, and FACE: No sore throat, lymphadenopathy, carotid bruits or deformity. RESPIRATORY: Positive shortness of breath cough wheezes and fever. CARDIOVASCULAR: No CP, Palpitation, PND, Orthopnea, or angina. GASTROINTESTINAL: No Abd pain, positive nausea without vomiting, no Diarrhea or constipation, No GI Bleed, no distention or masses. GENITOURINARY: Negative for Hematuria or UTI, no kidney stones. INTEGUMENT/BREAST: Negative for any muscular injury with mild osteoarthritis.. Generalized arthralgia HEMATOLOGIC/LYMPHATIC: Negative for bleed or purpura. Chronic anemia MUSCULOSKELTAL: Negative for Myalgia or arthralgia. NEURLOGICAL: No LOC, Sz or syncope, blurred vision dizziness or abnormality.. BEHAVIORAL/PSYCH: Negative. ENDOCRINE: Negative. PHYSICAL EXAMINATION: General Appearance: Alert, cooperative, having low-grade temperature of mild distress Neck HEENT: Supple, no lymphadenopathy, no thyroid enlargement, no carotid bruits. Lungs: Decreased breath sound bilaterally with fine rhonchi positive mild crackles in the bases with mild expiratory wheezes. Chest Wall: Decreased with deep inspiration no tenderness and no deformity was found on exam, no costochondral pain or discomfort. Heart: Irregular rate and rhythm, S1, S2 +3 with mild systolic murmur no JVD. Back: Symmetric, no curvature, ROM normal, no CVA tenderness. Mild scoliosis Abdomen: Soft, non-tender, bowel sounds active all four quadrants, no masses, no organomegaly. Extremities: Extremities normal, atraumatic, no cyanosis or edema. Pulses: 2+ and symmetric. Skin: Skin color, texture, tugor normal, no rashes or lesions. Neurologic: Alert oriented x3 cranial nerves II through XII intact, no motor deficit, no abnormal balance or gait. ASSESSMENT AND PLAN: _Mild respiratory failure secondary to combination of multilobar pneumonia along with pulmonary fibrosis. Significant improvement continue current management. _Multilobar pneumonia culture will be done, he still been treated with azithromycin and Rocephin, procalcitonin is mildly elevated continue current management. _Pulmonary fibrosis: Has not been symptomatic in between but underlying problem with lung mass and radiation recently could not reason His infection become worse. _Pulmonary mass: Mostly squamous cell carcinoma of the lung post radiation treatment. _A-fib/flutter with RVR post ablation therapy, still on Xarelto and metoprolol. _History of non-Hodgkin lymphoma: Has been seeing oncology more regular basis. _Type 2 diabetes: Blood sugar become much worse Farxiga was started at 5 mg we will titrate up to 10 mg eventually, still using 7 units of NovoLog AC meals plus sliding scale coverage and will add Levemir finally once or twice a day if needed. _Hyperlipidemia: Remain on Crestor 10 mg daily. _Mild hyponatremia most likely reactive to his multilobar pneumonia as a low- grade of SIADH, continue gentle hydration sodium is up to 133. _Obesity with body mass index of 34%. _GI prophylaxis: Patient will be on pantoprazole 40 mg daily. DVT prophylaxis: Still on Xarelto._ CODE STATUS: Full code. Discussion: The original management was as patient wishes to be transferred to [facility], he is on the list for being transferred back to his current management currently remain with aggressive antibiotic for his pneumonia along with aggressive management for his COPD/pulmonary fibrosis seem to be working quite well we will continue current management continue to follow recommendation of [employer] consultant at this point. Objective - Vital Signs Vital signs: Vital Signs Temp 97.8 F 03/01/24 00:42 Pulse 100 03/01/24 05:08 Resp 20 03/01/24 05:08 BP 151/91 03/01/24 05:08 Pulse Ox 98 03/01/24 05:08 FiO2 Intake & Output 02/29/24 02/29/24 03/01/24 06:59 18:59 06:59 Intake Total 318 Balance 318 Weight 120.202 kg 120.202 kg Intake: Oral 318 Other: Voiding Method Toilet - Labs CBC & Chem 7: 03/01/24 06:43 03/01/24 06:43 Labs: Abnormal Lab Results - Last 24 Hours (Table) 02/28/24 02/28/24 02/29/24 Range/Units 13:13 20:58 06:19 POC Glucose (mg/dL) 316 H (70-110) mg/dL Procalcitonin 0.16 H (0.02-0.09) ng/mL IgG 595.0 L (700.0-1600.0) mg/dL IgM 342.0 H (40.0-280.0) mg/dL 02/29/24 02/29/24 02/29/24 Range/Units 17:01 18:02 18:57 POC Glucose (mg/dL) 505 H* 484 H 481 H (70-110) mg/dL Procalcitonin (0.02-0.09) ng/mL IgG (700.0-1600.0) mg/dL IgM (40.0-280.0) mg/dL 02/29/24 03/01/24 Range/Units 19:56 00:53 POC Glucose (mg/dL) 450 H 318 H (70-110) mg/dL Procalcitonin (0.02-0.09) ng/mL IgG (700.0-1600.0) mg/dL IgM (40.0-280.0) mg/dL
[2024-03-02 06:27] LABS: Glucose,Whole Blood 250 mg/dL (70-110)
[2024-03-02] MEDS: INSULIN ASPART (NovoLOG) 100 UNIT/ML VIAL SQ SCH (07:05)
[2024-03-02] MEDS: INSULIN DETEMIR (LEVEMIR) 100 UNIT/ML SYR SQ SCH (07:07)
[2024-03-02] MEDS ORDERED: DAPAGLIFLOZIN PROPANEDIOL 5 MG TABLET PO SCH (09:00)
[2024-03-02] MEDS: PANTOPRAZOLE 40 MG TABLET PO SCH (09:28)
[2024-03-02] MEDS: DAPAGLIFLOZIN PROPANEDIOL 10 MG TABLET PO SCH (09:28)
--- NOTE | 2024-03-02 09:46 | XR ---
EXAMINATION TYPE: XR chest 2V DATE OF EXAM: 03/02/2024 8:57 AM CLINICAL INDICATION:Male, 78 years old with history of B Pneumonia; COMPARISON: Chest radiographs from 02/28/2024 TECHNIQUE: XR chest 2V Frontal and lateral views of the chest. FINDINGS: Lungs/Pleura: Similar multifocal airspace opacities. No evidence of pneumothorax or pleural effusion. Pulmonary vascularity: Unremarkable. Heart/mediastinum: Cardiomediastinal silhouette is unremarkable. Musculoskeletal: No acute osseous pathology. IMPRESSION: Multifocal airspace opacities concerning for pneumonia.
[2024-03-02] MEDS: methylPREDNISolone SOD SUCCI 40 MG/ML 1 ML VIAL IV SCH (10:44)
[2024-03-02 11:10] LABS: Glucose,Whole Blood 316 mg/dL (70-110)
--- NOTE | 2024-03-02 13:10 | P.PN ---
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 Patient previously diagnosed with non-Hodgkin's lymphoma, underwent 6 cycles of R-CHOP, with last treatment in 2019. Of note, patient recently states that he had a transthoracic biopsy of a different left lower lung mass at [facility] approximately 3 months ago, which was positive for lung cancer, and just finished 5 rounds of radiation. Denies any recent systemic chemotherapy. His oncologist Dr. Olivo. His primary care provider is Dr. Zamora. He presented to the emergency department late last night complaining of 24 hours of worsening shortness of breath, mostly nonproductive cough, and fevers. Denies sick contacts. Denies chest pain or hemoptysis. Denies nausea, vomiting, diarrhea. Initial chest x-ray demonstrated multifocal airspace opacity superimposed on chronic interstitial changes, findings were worrisome for pneumonia. A follow-up chest CTA did not show any acute pulmonary embolism. There was posttreatment changes in the left lung and volume loss. Masslike consolidation in the left lower lobe. Dependent air space consolidations, consistent with multilobar pneumonia. CBC: WBC count 4.2, hemoglobin 15.5, hematocrit 50.6, platelets 125. CMP: Sodium 129, potassium 4.5, chloride 99, serum bicarb 26, BUN 12, creatinine 0.65, glucose 257. LFTs not elevated. UA unremarkable for infection. Negative for influenza, RSV, COVID. Highest recorded fever and patient was 100.8 F. Patient is currently resting comfortably on 2 L/min nasal cannula, no acute distress. Appears nontoxic. Vital signs are stable. Progress note dated March 01, 2024. 78-year-old male seen yesterday in consultation. He has a history of atrial fibrillation, diffuse large B-cell lymphoma, interstitial lung disease/pulmonary fibrosis, and more recently, early stage lung cancer, status post SBRT. The patient was admitted with a diagnosis of possible pneumonia. He is seen today in the observation unit, room 157. His procalcitonin level was 0.16. The patient is on a couple liters of oxygen. He is getting azithromycin, and Rocephin, Solu-Medrol, albuterol sulfate, ipratropium bromide, as well as budesonide, and formoterol. He is resting comfortably, and feels a bit better today than he did yesterday. Currently, white count 5.7, hemoglobin 12, hematocrit 39.6, platelet count 186,000. Sodium 133, potassium 5.1, chlorides 101, CO2 25, BUN 18, creatinine 0.67. The patient is seen today March 02, 2024 in follow-up on the regular medical floor. He is currently sitting up in bed. Awake and alert in no acute distress. Maintaining good O2 saturations in the 90s on room air. He remains in atrial fibrillation with a controlled ventricular response. He has been continued on ceftriaxone. Completed azithromycin. Remains on Pulmicort and Perforomist inhalations, DuoNeb inhalations, Solu-Medrol. Blood cultures revealed no growth. Glucose 316. He is continued on Levemir, NovoLog sliding scale, Glucophage. Objective - Vital Signs Vital signs: Vital Signs Temp 98.0 F 03/02/24 07:50 Pulse 72 03/02/24 12:20 Resp 17 03/02/24 07:50 BP 120/71 03/02/24 07:50 Pulse Ox 98 03/02/24 09:19 FiO2 Intake & Output 03/01/24 03/02/24 03/02/24 18:59 06:59 18:59 Other: Voiding Method Toilet Toilet # Voids 2 2 - Exam GENERAL EXAM: Alert, very pleasant 78-year-old male, sitting up in bed, on room air, comfortable in no apparent distress. HEAD: Normocephalic. EYES: Normal reaction of pupils, equal size. NOSE: Clear with pink turbinates. THROAT: No erythema or exudates. NECK: No masses, no JVD. CHEST: No chest wall deformity. LUNGS: Equal air entry with few scattered rhonchi with crackles in the posterior bases. CVS: S1 and S2 normal with no audible murmur, regular rhythm. ABDOMEN: No hepatosplenomegaly, normal bowel sounds, no guarding or rigidity. SPINE: No scoliosis or deformity SKIN: No rashes CENTRAL NERVOUS SYSTEM: No focal deficits, tone is normal in all 4 extremities. EXTREMITIES: There is no peripheral edema. No clubbing, no cyanosis. Peripheral pulses are intact. - Labs CBC & Chem 7: 03/01/24 06:43 03/01/24 06:43 Labs: Abnormal Lab Results - Last 24 Hours (Table) 03/01/24 03/01/24 03/01/24 Range/Units 16:41 21:00 23:22 POC Glucose (mg/dL) 414 H 402 H 348 H (70-110) mg/dL 03/02/24 03/02/24 Range/Units 06:25 11:08 POC Glucose (mg/dL) 250 H 316 H (70-110) mg/dL Microbiology - Last 24 Hours (Table) 02/28/24 21:04 Blood Culture - Preliminary Blood 02/28/24 20:49 Blood Culture - Preliminary Blood Assessment and Plan Assessment: Suspect community-acquired bilateral pneumonia, Initial chest x-ray demonstrated multifocal airspace opacity superimposed on chronic interstitial changes, findings are worrisome for pneumonia. A follow-up chest CTA did not show any ac claudia pulmonary embolism. There were posttreatment changes in the left lung and volume loss. Masslike consolidation in the left lower lobe. Dependent air space consolidations, consistent with multilobar pneumonia. Acute hypoxemic respiratory failure, secondary to above. Early stage non-small cell lung cancer/squamous cell cancer, left lower lobe, S/P SBRT. History of diffuse large B-cell lymphoma, status post chemotherapy with 6 cycles of R-CHOP. History of pulmonary fibrosis, not currently on Ofev. Chronic atrial fibrillation, currently with controlled ventricular response. History of hyperlipidemia. History of hypertension. Obesity, with a BMI of 34 kg/m. Plan: The patient was seen and evaluated Currently stable and on room air Cleared for discharge from the pulmonary standpoint To continue on Symbicort, albuterol HFA No need for prednisone taper Complete a 7-day course of Ceftin Follow-up with his registered pharmacy technician in 1 week I have personally seen and examined the patient, performed the documentation and the assessment and plan as written. Number of minutes spent on the visit: 10.
[2024-03-02 16:19] LABS: Glucose,Whole Blood 165 mg/dL (70-110)
[2024-03-02 20:03] LABS: Glucose,Whole Blood 159 mg/dL (70-110)
[2024-03-02] MEDS: SYMBICORT 160-4.5 MCG INHALER INHALATION SCH (20:31)
[2024-03-02] MEDS: CEFDINIR 300 MG CAP PO SCH (21:04)
--- NOTE | 2024-03-03 06:01 | P.PN ---
Subjective Progress Note Date: 03/02/24 HISTORY OF PRESENT ILLNESS: 78-year-old with active medical history of atrial fibrillation/a flutter, type 2 diabetes, hypertension, hyperlipidemia, recurrent pneumonia, obstructive sleep apnea, non-Hodgkin lymphoma also was diagnosed in 2019. Also diagnosed few weeks ago of left-sided lung cancer via transthoracic biopsy at [facility] was diagnosed with lung cancer and did 5 cycle of radiation therapy with no chemo seen Dr. Pallavi alfredo. Known to have history of pulmonary fibrosis and shortness of breath required oxygen sometimes with recurrent pneumonitis. Also had obstructive sleep apnea on CPAP on a regular basis. History of pericarditis back in 1988, chronic history of lower back pain. Patient had ablation therapy for A-fib in the past also had total joint placement with bilateral knee arthroscopy right total hip arthroplasty who live independent and able to manage his medical history seen multi subspecialist with mean oncology, pulmonary and cardiology. You presented to the emergency department very late night on 02/28/2024 com plaining of fever chills had radiation therapy 5 to 6 weeks ago for pulmonary mass in the left side and has been having slight shortness of breath since medicine fever chills or more symptoms consistent with worsening shortness of breath developed in the last 48 hours. Admission with slightly more cough productive phlegm. In the primary to the emergency department where was seen and evaluated his white blood cell was normal with low platelet at 1 25,000 has mild hyponatremia with sodium of 129. Urine was negative and respiratory culture came back negative as well. And having severe fibrosis on chest x-ray with multifocal airspace opacification superimposed on chronic interstitial changes finding most likely from worsening pneumonia along with pulmonary fibrosis. Furthermore CTA was done that showed no acute pulmonary embolism but dependent airspace consolidation consistent with multilobar pneumonia. Sputum for Gram stain and culture be done patient was started on Rocephin and mehran thromycin will consult pulmonary and admit patient to the hospital. 03/01/2024:The patient was resting comfortably in bed still on O2 between 2 to 3 L nasal cannula to keep his pulse ox above 90 percentile, his procalcitonin was mildly elevated today, still on double antibiotic for multilobar pneumonia he is still on Solu-Medrol 40 mg every 8 hours, he is not running fever or chills today with temperature finally stabilized. White blood cell at 5.7 only blood sugar still mildly elevated as an effect of the steroid. He is seen pulmonary along with oncology recommend to continue current medication management. Until this morning I believe he still planning to be transferred to [facility] for better management for his squamous cell carcinoma of the lung along with being close to his oncologist. Also with his pulmonary fibrosis making all this picture quite bit more complex than expected. But I still see improvement compared to yesterday. 03/02/2024, he is doing much better hypoxia has improved significantly still on 2 L of O2. Blood sugar has been elevated with adjustment of medication done with nurse was told to teach patient how to do self injection for diabetic management upon discharge because you will require to be on insulin as well. As for the process to transfer him down to [place] at this point there is no need for it patient is agreeable to probably spend the next 24 hours to finalize his management plan with his multifocal pneumonia and be discharged home on oral antibiotics while still supervised and probably go for follow-up by pulmonary. Oncology [place] patient is stable again till he is out of the hospital to go back to his follow-up with oncology and radiation oncology. REVIEW OF SYSTEMS: CONSTITUTIONAL: Mildly overweight in mild respiratory distress has been having mild hypoxia. EYES: No icterus sclerae, no conjunctivitis. EARS, NOSE, MOUTH, THROAT, and FACE: No sore throat, lymphadenopathy, carotid bruits or deformity. RESPIRATORY: Positive shortness of breath cough wheezes and fever. CARDIOVASCULAR: No CP, Palpitation, PND, Orthopnea, or angina. GASTROINTESTINAL: No Abd pain, positive nausea without vomiting, no Diarrhea or constipation, No GI Bleed, no distention or masses. GENITOURINARY: Negative for Hematuria or UTI, no kidney stones. INTEGUMENT/BREAST: Negative for any muscular injury with mild osteoarthritis.. Generalized arthralgia HEMATOLOGIC/LYMPHATIC: Negative for bleed or purpura. Chronic anemia MUSCULOSKELTAL: Negative for Myalgia or arthralgia. NEURLOGICAL: No LOC, Sz or syncope, blurred vision dizziness or abnormality.. BEHAVIORAL/PSYCH: Negative. ENDOCRINE: Negative. PHYSICAL EXAMINATION: General Appearance: Alert, cooperative, having low-grade temperature of mild distress Neck HEENT: Supple, no lymphadenopathy, no thyroid enlargement, no carotid bruits. Lungs: Decreased breath sound bilaterally with fine rhonchi positive mild crackles in the bases with mild expiratory wheezes. Chest Wall: Decreased with deep inspiration no tenderness and no deformity was found on exam, no costochondral pain or discomfort. Heart: Irregular rate and rhythm, S1, S2 +3 with mild systolic murmur no JVD. Back: Symmetric, no curvature, ROM normal, no CVA tenderness. Mild scoliosis Abdomen: Soft, non-tender, bowel sounds active all four quadrants, no masses, no organomegaly. Extremities: Extremities normal, atraumatic, no cyanosis or edema. Pulses: 2+ and symmetric. Skin: Skin color, texture, tugor normal, no rashes or lesions. Neurologic: Alert oriented x3 cranial nerves II through XII intact, no motor deficit, no abnormal balance or gait. ASSESSMENT AND PLAN: _Mild respiratory failure secondary to combination of multilobar pneumonia along with pulmonary fibrosis. Significant improvement continue current management. Continue O2 and switchSteroid to methylprednisolone 40 mg twice a day and eventually can go off completely. _Multilobar pneumonia culture will be done, he still been treated with azithromycin and Rocephin, procalcitonin is down to normal patient be switched to Omnicef 300 mg twice a day for total of 7 days. _Pulmonary fibrosis: Has not been symptomatic in between but underlying problem with lung mass and radiation recently could not reason His infection become worse. _Pulmonary mass: Mostly squamous cell carcinoma of the lung post radiation treatment. Has been stable. _A-fib/flutter with RVR post ablation therapy, still on Xarelto and metoprolol. The pulse rate is under control. _History of non-Hodgkin lymphoma: Has been seeing oncology more regular basis. _Type 2 diabetes: Switch medication to Farxiga 10 mg a day, NovoLog 10 units AC meals and Levemir 10 units twice daily and titrate Levemir up to 15 units twice a day with the Farxiga can without any short acting insulin especially while he is off steroid. _Hyperlipidemia: Remain on Crestor 10 mg daily. _Mild hyponatremia most likely reactive to his multilobar pneumonia as a low- grade of SIADH, continue gentle hydration sodium is up to 133. _Obesity with body mass index of 34%. _GI prophylaxis: Patient will be on pantoprazole 40 mg daily. DVT prophylaxis: Still on Xarelto._ CODE STATUS: Full code. Discussion: The patient is stable, finalize his oral antibiotics finalize his steroid and hopefully prepare for home in the next 24 hours. Objective - Vital Signs Vital signs: Vital Signs Temp 98.2 F 03/02/24 00:24 Pulse 95 03/02/24 00:24 Resp 18 03/02/24 00:24 BP 118/75 03/02/24 00:24 Pulse Ox 96 03/02/24 00:24 FiO2 Intake & Output 03/01/24 03/01/24 03/02/24 06:59 18:59 06:59 Intake Total 480 Balance 480 Intake: Oral 480 Other: Voiding Method Toilet Toilet Toilet # Voids 5 2 2 - Labs CBC & Chem 7: 03/01/24 06:43 03/01/24 06:43 Labs: Abnormal Lab Results - Last 24 Hours (Table) 03/01/24 03/01/24 03/01/24 Range/Units 06:15 06:43 06:43 RBC 3.66 L (4.30-5.90) m/uL Hgb 12.0 L D (13.0-17.5) gm/dL MCV 108.2 H (80.0-100.0) fL MCHC 30.3 L (31.0-37.0) g/dL Sodium 133 L (137-145) mmol/L Glucose 363 H (74-99) mg/dL POC Glucose (mg/dL) 366 H (70-110) mg/dL AST 15 L (17-59) U/L Total Protein 6.0 L (6.3-8.2) g/dL 03/01/24 03/01/24 03/01/24 Range/Units 11:53 16:41 21:00 RBC (4.30-5.90) m/uL Hgb (13.0-17.5) gm/dL MCV (80.0-100.0) fL MCHC (31.0-37.0) g/dL Sodium (137-145) mmol/L Glucose (74-99) mg/dL POC Glucose (mg/dL) 497 H 414 H 402 H (70-110) mg/dL AST (17-59) U/L Total Protein (6.3-8.2) g/dL 03/01/24 Range/Units 23:22 RBC (4.30-5.90) m/uL Hgb (13.0-17.5) gm/dL MCV (80.0-100.0) fL MCHC (31.0-37.0) g/dL Sodium (137-145) mmol/L Glucose (74-99) mg/dL POC Glucose (mg/dL) 348 H (70-110) mg/dL AST (17-59) U/L Total Protein (6.3-8.2) g/dL Microbiology - Last 24 Hours (Table) 02/28/24 21:04 Blood Culture - Preliminary Blood 02/28/24 20:49 Blood Culture - Preliminary Blood
[2024-03-03 06:03] LABS: Glucose,Whole Blood 182 mg/dL (70-110)
[2024-03-03] MEDS: INSULIN ASPART (NovoLOG) 100 UNIT/ML VIAL SQ SCH (06:29)
[2024-03-03 07:45] VITALS: BP 159/82; RESP 17; TEMP 98.5
[2024-03-03] MEDS: INSULIN DETEMIR (LEVEMIR) 100 UNIT/ML SYR SQ SCH (07:57)
[2024-03-03 09:30] VITALS: PULSE 70
[2024-03-03 10:28] LABS: HCT 35.8 % (39.6-50.0); HGB 11.3 g/dL (13.0-17.0); MCH 33.2 pg (27.0-32.0); MCHC 31.6 g/dL (32.0-37.0); MCV 105.3 FL (80.0-97.0); Mean Platelet Volume 10.5 FL (9.5-12.2); NRBC Per 100 WBC 0 X 10*3/uL (0.00-0.01); Platelet Count 201 X 10*3/uL (140-440); RDW 14.4 % (11.5-14.5); WBC 6.64 X 10*3/uL (4.50-10.00)
[2024-03-03 10:42] LABS: ALT 17 U/L (10-49); AST 13 U/L (14-35); Albumin 3.5 g/dL (3.8-4.9); Albumin/Globulin Ratio 1.59 Ratio (1.60-3.17); Alkaline Phosphatase 86 U/L (41-126); Blood Urea Nitrogen 21.9 mg/dL (9.0-27.0); Calcium 9.2 mg/dL (8.7-10.3); Carbon Dioxide 25.6 mmol/L (21.6-31.8); Chloride 99 mmol/L (96-109); Globulin 2.2 g/dL (1.6-3.3); Glucose 194 mg/dL (70-110); Potassium 4.2 mmol/L (3.5-5.5); Sodium 137 mmol/L (135-145); Total Bilirubin 0.3 mg/dL (0.3-1.2); Total Protein 5.7 g/dL (6.2-8.2)
--- NOTE | 2024-03-03 14:28 | P.PN ---
Subjective Progress Note Date: 03/03/24 Patient is a 78-year-old white male with past medical history significant for chronic atrial fibrillation, diabetes mellitus, hyperlipidemia, hypertension, pulmonary fibrosis, diffuse large B-cell lymphoma status post chemo, among other things. Patient previously diagnosed with non-Hodgkin's lymphoma, underwent 6 cycles of R-CHOP, with last treatment in 2019. Of note, patient recently states that he had a transthoracic biopsy of a different left lower lung mass at [facility] approximately 3 months ago, which was positive for lung cancer, and just finished 5 rounds of radiation. Denies any recent systemic chemotherapy. His oncologist Dr. Olivo. His primary care provider is Dr. Zamora. He presented to the emergency department late last night complaining of 24 hours of worsening shortness of breath, mostly nonproductive cough, and fevers. Denies sick contacts. Denies chest pain or hemoptysis. Denies nausea, vomiting, diarrhea. Initial chest x-ray demonstrated multifocal airspace opacity superimposed on chronic interstitial changes, findings were worrisome for pneumonia. A follow-up chest CTA did not show any acute pulmonary embolism. There was posttreatment changes in the left lung and volume loss. Masslike consolidation in the left lower lobe. Dependent air space consolidations, consistent with multilobar pneumonia. CBC: WBC count 4.2, hemoglobin 15.5, hematocrit 50.6, platelets 125. CMP: Sodium 129, potassium 4.5, chloride 99, serum bicarb 26, BUN 12, creatinine 0.65, glucose 257. LFTs not elevated. UA unremarkable for infection. Negative for influenza, RSV, COVID. Highest recorded fever and patient was 100.8 F. Patient is currently resting comfortably on 2 L/min nasal cannula, no acute distress. Appears nontoxic. Vital signs are stable. Progress note dated March 01, 2024. 78-year-old male seen yesterday in consultation. He has a history of atrial fibrillation, diffuse large B-cell lymphoma, interstitial lung disease/pulmonary fibrosis, and more recently, early stage lung cancer, status post SBRT. The patient was admitted with a diagnosis of possible pneumonia. He is seen today in the observation unit, room 157. His procalcitonin level was 0.16. The patient is on a couple liters of oxygen. He is getting azithromycin, and Rocephin, Solu-Medrol, albuterol sulfate, ipratropium bromide, as well as budesonide, and formoterol. He is resting comfortably, and feels a bit better today than he did yesterday. Currently, white count 5.7, hemoglobin 12, hematocrit 39.6, platelet count 186,000. Sodium 133, potassium 5.1, chlorides 101, CO2 25, BUN 18, creatinine 0.67. The patient is seen today March 02, 2024 in follow-up on the regular medical floor. He is currently sitting up in bed. Awake and alert in no acute distress. Maintaining good O2 saturations in the 90s on room air. He remains in atrial fibrillation with a controlled ventricular response. He has been continued on ceftriaxone. Completed azithromycin. Remains on Pulmicort and Perforomist inhalations, DuoNeb inhalations, Solu-Medrol. Blood cultures revealed no growth. Glucose 316. He is continued on Levemir, NovoLog sliding scale, Glucophage. The patient is seen today March 03, 2024 in follow-up on the regular medical floor. He is up ambulating in his room. Awake and alert in no acute distress. Continues to maintain good O2 saturations in the 90s on room air. He has been afebrile. Hemodynamically stable. Blood cultures revealed no growth. White count 6.6. Hemoglobin 11.3. Platelets 201. Sodium 137. Potassium 4.2. Bicarb 26. BUN 22. Creatinine 1.0. Glucose 194. He is continued on DuoNeb inhalations, Symbicort and prednisone taper. Continued on ceftriaxone. Completed azithromycin. Remains on Levemir, NovoLog sliding scale, Glucophage. Objective - Vital Signs Vital signs: Vital Signs Temp 98.5 F 03/03/24 07:18 Pulse 70 03/03/24 09:30 Resp 17 03/03/24 08:00 BP 159/82 03/03/24 07:18 Pulse Ox 98 03/03/24 09:17 FiO2 Intake & Output 03/02/24 03/03/24 03/03/24 18:59 06:59 18:59 Intake Total 480 Balance 480 Intake: Oral 480 Other: Voiding Method Toilet # Voids 4 2 - Exam GENERAL EXAM: Alert, pleasant 78-year-old male, ambulating in his room, on room air, in no apparent distress. HEAD: Normocephalic. EYES: Normal reaction of pupils, equal size. NOSE: Clear with pink turbinates. THROAT: No erythema or exudates. NECK: No masses, no JVD. CHEST: No chest wall deformity. LUNGS: Equal air entry with few scattered rhonchi with crackles in the posterior bases. CVS: S1 and S2 normal with no audible murmur, regular rhythm. ABDOMEN: No hepatosplenomegaly, normal bowel sounds, no guarding or rigidity. SPINE: No scoliosis or deformity SKIN: No rashes CENTRAL NERVOUS SYSTEM: No focal deficits, tone is normal in all 4 extremities. EXTREMITIES: There is no peripheral edema. No clubbing, no cyanosis. Peripheral pulses are intact. - Labs CBC & Chem 7: 03/03/24 07:08 03/03/24 07:08 Labs: Abnormal Lab Results - Last 24 Hours (Table) 03/02/24 03/02/24 03/03/24 Range/Units 16:18 20:01 06:01 RBC (4.40-5.60) X 10*6/uL Hgb (13.0-17.0) g/dL Hct (39.6-50.0) % MCV (80.0-97.0) FL MCH (27.0-32.0) pg MCHC (32.0-37.0) g/dL Anion Gap (4.00-12.00) mmol/L BUN/Creatinine Ratio (12.00-20.00) Ratio Glucose (70-110) mg/dL POC Glucose (mg/dL) 165 H 159 H 182 H (70-110) mg/dL AST (14-35) U/L Total Protein (6.2-8.2) g/dL Albumin (3.8-4.9) g/dL Albumin/Globulin Ratio (1.60-3.17) Ratio 03/03/24 03/03/24 Range/Units 07:08 07:08 RBC 3.40 L (4.40-5.60) X 10*6/uL Hgb 11.3 L (13.0-17.0) g/dL Hct 35.8 L (39.6-50.0) % MCV 105.3 H (80.0-97.0) FL MCH 33.2 H (27.0-32.0) pg MCHC 31.6 L (32.0-37.0) g/dL Anion Gap 12.40 H (4.00-12.00) mmol/L BUN/Creatinine Ratio 21.90 H (12.00-20.00) Ratio Glucose 194 H (70-110) mg/dL POC Glucose (mg/dL) (70-110) mg/dL AST 13 L (14-35) U/L Total Protein 5.7 L (6.2-8.2) g/dL Albumin 3.5 L (3.8-4.9) g/dL Albumin/Globulin Ratio 1.59 L (1.60-3.17) Ratio Microbiology - Last 24 Hours (Table) 02/28/24 21:04 Blood Culture - Preliminary Blood 02/28/24 20:49 Blood Culture - Preliminary Blood Assessment and Plan Assessment: Suspect community-acquired bilateral pneumonia, Initial chest x-ray demonstrated multifocal airspace opacity superimposed on chronic interstitial changes, findings are worrisome for pneumonia. A follow-up chest CTA did not show any acute pulmonary embolism. There were posttreatment changes in the left lung and volume loss. Masslike consolidation in the left lower lobe. Dependent air space consolidations, consistent with multilobar pneumonia Acute hypoxemic respiratory failure, secondary to above Early stage non-small cell lung cancer/squamous cell cancer, left lower lobe, S/P SBRT History of diffuse large B-cell lymphoma, status post chemotherapy with 6 cycles of R-CHOP History of pulmonary fibrosis, not currently on Ofev Chronic atrial fibrillation, currently with controlled ventricular response History of hyperlipidemia History of hypertension Obesity, with a BMI of 34 kg/m Plan: The patient was seen and evaluated Currently stable and on room air To continue on bronchodilators Complete a 7-day course of Ceftin 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 Number of minutes spent on the visit: 10.
--- NOTE | 2024-03-07 13:45 | CDI ---
Documentation Clarification Form Date: 03/07/2024 From: Raciel Price, MARY, RN, CCDS Phone: [phone] Admit Date: 02/28/2024 11:55:00 PM Patient Name: Marcel Klein Visit Number: [id number] Discharge Date: 03/03/2024 10:50:00 AM ATTENTION: The Clinical Documentation Specialists (CDI) and [facility] Coding Staff appreciate your assistance in clarifying documentation. Please respond to the clarification below the line at the bottom and electronically sign. The CDI & [facility] Coding staff will review the response and follow-up if needed. Please note: Queries are made part of the Legal Health Record. If you have any questions, please contact the author of this message via ITS. Dr. Conklin Per the H&P 02/28 the patient presented to the ED with shortness of breath, cough, elevated WBC fever and chills s/p radiation therapy for a pulmonary mass. Based on this information and the findings below, is there an additional diagnosis that is clinically appropriate for this patient? History/Risk Factors: 78 yo male presented with c/o cough and fever. PMH EARL, A-fib, DM2, obesity (H&P ). Clinical Indicators: ED note mentions fever, chills, dyspnea, and hypoxic (02/27) Consult 02/28 Pulmonology suspect pneumonia, acute hypoxemic respiratory failure, recent diagnosis of lung cancer, plan empiric antibiotics, blood cultures pending Blood cultures x 2 negative at 5 days WBC trends 02/27-03/03 4.2, 5.7, 6.6 Dff with left shift on admission Platelets reported as 125 on admission per [employer], subsequent labs reported plts 186 (03/01) and 201 (03/03) Procalcitonin 0.16 on 02/27 Lactic acid 0.9 on 02/27 VS in ED temp 100.8 HR 100, R 18, BP 143/69 O2 Sat 96% on 3L NC T max was 101.0 on 02/28 Treatment: NS 500 cc bolus given in ED Azithromycin 500 mg IV in ED, 02/27 then changed to po qHS until 03/01 Ceftriaxone 2 gm IV in ED 02/27 then continued q2hr until 03/02 Is there an additional diagnosis that is clinically appropriate for this patient? [ ] No additional diagnosis/not clinically significant [ XX ] Sepsis, present on admission [ ] Other, please specify [ ] Unable to determine MTDD
== END 2024-03-03 10:50 | disposition home or self-care (01) | DRG 871 ==
LOC: EC 19:50 → 4SSUR 23:55 → 1SOBS 02-29 12:11 → 4SSUR 03-01 16:39
PROVIDERS: ADMIT Internal Medicine Geriatric Medicine; ATTEND Internal Medicine Geriatric Medicine
DX: A41.9 Sepsis, unspecified organism (principal); J18.9 Pneumonia, unspecified organism; J96.01 Acute respiratory failure with hypoxia; C83.30 Diffuse large B-cell lymphoma, unspecified site; I48.20 Chronic atrial fibrillation, unspecified; E22.2 Syndrome of inappropriate secretion of antidiuretic hormone; I48.92 Unspecified atrial flutter; G83.30 Monoplegia, unspecified affecting unspecified side; Z68.34 Body mass index [BMI] 34.0-34.9, adult; Z79.01 Long term (current) use of anticoagulants; E66.9 Obesity, unspecified; E78.5 Hyperlipidemia, unspecified; G47.33 Obstructive sleep apnea (adult) (pediatric); I10 Essential (primary) hypertension; Z98.42 Cataract extraction status, left eye; Z98.41 Cataract extraction status, right eye; Z96.653 Presence of artificial knee joint, bilateral; Z96.641 Presence of right artificial hip joint; J84.10 Pulmonary fibrosis, unspecified; Z79.4 Long term (current) use of insulin; Z79.51 Long term (current) use of inhaled steroids; Z79.84 Long term (current) use of oral hypoglycemic drugs; Z79.899 Other long term (current) drug therapy; Z87.01 Personal history of pneumonia (recurrent); Z85.118 Personal history of other malignant neoplasm of bronchus and lung; Z92.21 Personal history of antineoplastic chemotherapy
CPT/HCPCS: 36415; 71046; 71275; 80053; 81001; 82784; 83605; 83735; 84145; 85025; 85027; 87040; 87070; 87205; 87449; 87636; 93005; 94640; 94760; 96361; 96365; 96366; 96367; 96375; 99285